=== PATIENT | male | born 1955 | race Caucasian/White ===

== ENCOUNTER → 2020-10-11 15:12 | Outpatient (ROUT) | payer OTHER, SELFPAY ==
[2020-10-11 15:28] LABS: Add Manual Diff / Slide Review NO; Basophils Absolute Auto 0 /uL (0-100); Basophils Percent Auto 0.3 % (0-2); Eosinophils Absolute Auto 100 /uL (0-450); Eosinophils Percent Auto 1.8 % (2-4); Hematocrit 46.5 % (41-53); Hemoglobin 15.4 g/dL (13.5-17.5); Lymphocytes Absolute Auto 1700 /uL (1100-4500); Mean Corpuscular HGB Conc 33.1 % (30-36); Mean Corpuscular Volume 87.6 fL (80-100); Monocytes Absolute Auto 500 /uL (0-900); Monocytes Percent Auto 5.9 % (3-14); Neutrophils Absolute Auto 5500 /uL (1500-7000); Platelet Count 214 X10^3/uL (150-400); Red Blood Cell Count 5.31 X10^6/uL (4.5-5.9); Red Cell Distribution Width 13.3 % (11.6-14.8); White Blood Cell Count 7.8 X10^3/uL (4.5-11.0)
[2020-10-11 15:37] LABS: Aspartate Aminotransferase 42 IU/L (17-59); Blood Urea Nitrogen 23 mg/dL (9-20); Calcium 9.4 mg/dL (8.4-10.2); Carbon Dioxide 31 mmol/L (22-32); Chloride 102 mmol/L (98-107); Cholesterol 156 mg/dL (140-199); Estimated Glomerular Filt Rate > 60.0 mL/min (>60); Glucose 95 mg/dL (80-110); HDL Cholesterol 55 mg/dL (40-60); HEMOLYSIS < 15 (0-50); LDL Cholesterol Calculated 80 mg/dL (<100); Potassium 3.8 mmol/L (3.4-5.1); Sodium 140 mmol/L (137-145); Triglycerides 103 mg/dL (35-150)
[2020-10-11 16:08] LABS: Prostate Specific Antigen < 0.064 ng/mL (0.10-4.00); TSH w/ Reflex to FT4 8.04 uIU/mL (0.47-4.68)
[2020-10-11 16:35] LABS: Free T4, Direct Thyroxine 1.02 ng/dL (0.78-2.19)
== END ==
PROVIDERS: Visit Provider Internal Medicine
DX: I10 Essential (primary) hypertension (principal); E78.2 Mixed hyperlipidemia; Z85.46 Personal history of malignant neoplasm of prostate; R59.0 Localized enlarged lymph nodes
CPT/HCPCS: 80048; 80061; 84153; 84439; 84443; 84450; 85025

== ENCOUNTER → 2021-10-30 14:49 | Outpatient (CLI) | payer MEDICARE, OTHER, SELFPAY ==
--- NOTE | 2021-10-30 | DI.US.S_ITS ---
PROCEDURE: US SOFT TISSUE HEAD AND NECK INDICATIONS: Localized swelling, mass and lump, neck TECHNIQUE: Real-time scanning was performed of the neck region of interest, with image documentation. COMPARISON: None. FINDINGS: No enlarged lymph nodes identified. There is a 2.0 x 2.3 x 0.5 centimeter isoechoic lesion in the right mid-lateral neck which corresponds to the area of clinical interest. Doppler evaluation demonstrates no internal vascularity. IMPRESSION: 1. No enlarged lymph nodes identified in the region of clinical interest. 2. 2.0 x 2.3 x 0.5 centimeter isoechoic mass corresponds to clinically palpable lesion. Mass may represent a small lipoma, however lesion has nonspecific imaging characteristics and other etiologies cannot be excluded by ultrasound alone. Decision to biopsy should be based on clinical assessment. Dictated by: Dania Bernabe MD, PhD on 10/30/2021 at 16:53 Approved by: Dania Bernabe MD, PhD on 10/30/2021 at 16:55
== END ==
PROVIDERS: PCP Internal Medicine; Referring Provider Internal Medicine; Visit Provider Internal Medicine
DX: R22.1 Localized swelling, mass and lump, neck (principal)
CPT/HCPCS: 76536

== ENCOUNTER → 2021-11-13 13:43 | Outpatient (CLI) | payer MEDICARE, OTHER, SELFPAY ==
--- NOTE | 2021-11-13 14:01 | DI.CT.S_ITS ---
PROCEDURE: CT SOFT TISSUE NECK W CON INDICATIONS: neck mass TECHNIQUE: After the administration of intravenous contrast, 3.0 mm axial sections acquired from the sella to the aortic arch. Additional oblique axial 3.0 mm sections acquired through the pharynx. 3 mm thick coronal and sagittal reformats were generated. For radiation dose reduction, the following was used: automated exposure control. The area of palpable abnormality was marked with a BB. COMPARISON: [facility], US SOFT TISSUE HEAD AND NECK, 10/30/2021, 14:59. FINDINGS: Image quality: Excellent. Lymph nodes: No enlarged lymph nodes seen throughout the neck. Vessels: Visualized vasculature appears patent. Neck spaces: The oropharynx, nasopharynx, and pharynx demonstrate no mucosal lesions. The vocal cords, false vocal cords, pyriform sinuses, epiglottis, vallecula, and tongue base all appear normal. Extramucosal spaces appear unremarkable. At the area of palpable abnormality, no CT abnormality is present. Glands: The parotid and submandibular glands appear normal. Thyroid gland unremarkable. Miscellaneous: Visualized brain and orbits appear normal. Lung apices appear clear. Superficial soft tissues appear normal. Incidental 2.5 cm retention cyst present in the left maxillary sinus. Bones: No suspicious bony lesions. Visualized sinuses and mastoids appear unremarkable. Degenerative arthropathy noted in the cervical spine IMPRESSION: 1. No CT finding corresponds with the area of palpable abnormality. 2. Unremarkable CT neck with contrast Approved by: Tip Hall M.D. on 11/13/2021 at 17:35
== END ==
PROVIDERS: PCP Internal Medicine; Referring Provider Surgery; Visit Provider Surgery
DX: R22.1 Localized swelling, mass and lump, neck (principal)
CPT/HCPCS: 70491

== ENCOUNTER → 2021-12-10 09:45 | Outpatient (CLI) | payer MEDICARE, OTHER, SELFPAY ==
[2021-12-10 10:56] LABS: COVID19 -Nasal RAPID Negative (Negative)
== END ==
PROVIDERS: PCP Internal Medicine; Visit Provider Surgery
DX: Z20.822 Contact with and (suspected) exposure to COVID-19 (principal)
CPT/HCPCS: 87635; C9803

== ENCOUNTER 2021-12-11 06:42 | Day surgery (SDC) | payer MEDICARE, OTHER, SELFPAY ==
[2021-12-05 08:38] VITALS: BMI 31.0
--- NOTE | 2021-12-11 | PATH_ITS ---
[facility] Accession Number: [id number] . 01 Material submitted: . neck - RIGHT NECK MASS . 01 Diagnosis: Right Neck, Excision: Mature adipose tissue, consistent with lipoma. V 12/14/2021 0925 Local . 01 Electronically signed: . Yan Krueger MD, Dermatopathologist NPI- [id number] . 01 Gross description: . RIGHT NECK MASS: Received in formalin are 2 fragments of méndez soft tissue measuring 1.8 x 1.2 x 0.8 cm in aggregate. Tissue is inked. Specimen is sectioned and submitted in its entirety in 2 cassettes. /STEVEN 12/12/20212007 Local . 01 Pathologist provided ICD-10: D17.9 . 01 CPT . 133143 Specimen Comment: A courtesy copy of this report has been sent to [phone] Performed at: 01 [facility] [address] [place] [address], [place], [place] [id number] MD Jori Mueller MD Phone: [phone]
[2021-12-11 07:22] VITALS: BP 165/97; PULSE 97; RESP 18; TEMP 36.9; O2SAT 97; BMI 31.0
[2021-12-11] MEDS: LACTATED RINGERS 1,000 ML 84 ML IV (07:22)
--- NOTE | 2021-12-11 07:58 | PM.PREOP ---
Pre-operative Note COVID-19 COVID-19 status: Negative Result date/Date tested (Pos, Neg/Pending): 12/10/21 Criteria for continued procedure: Expected advancement of disease process and Possibility delay results in more complex future surgery or treatment Interval Note History & Physical reviewed/Exam performed by Physician: Yes Changes to H&P: No ASA Class (for procedural sedation): II
--- NOTE | 2021-12-11 08:20 | SUR.OPER ---
Supine on padded OR bed, head on pillow, arms padded and tucked at sides, legs uncrossed, safety belt at thigh, tape over blanket over lower legs .
--- NOTE | 2021-12-11 08:21 | SUR.OPER ---
Supine on padded OR bed, head on pillow, left arms secured on padded arm boards at <90 degrees abduction, right arm tucked with draw sheet, legs uncrossed, safety belt at thigh, tape over blanket over lower legs.
[2021-12-11] MEDS: LIDOCAINE 1% W/EPI 20 ML INJ (08:32)
[2021-12-11 08:49] VITALS: BP 106/62; PULSE 90; RESP 14; TEMP 36.5; O2SAT 97
--- NOTE | 2021-12-11 08:51 | PM.OP.1 ---
Operative Date/Time/Diagnoses Date of procedure: 12/11/21 Time of procedure: 08:51 Pre-op diagnosis: Right neck mass Post-op diagnosis: same Procedure & Clinicians Procedure: Excisional biopsy of right neck mass Same procedure as scheduled: Yes Indications: Right neck mass Surgeon: Marino Sosa Anesthesia Type: General Operative Notes Findings: 2.5 cm lipomatous mass Estimated Blood Loss (mL): 5 Procedure in detail: The patient was brought to the operating and placed on the table in supine position. General anesthesia was induced via LMA. His head was turned slightly to the left and his right shoulder was taped to distract the right shoulder inferiorly. The right neck was prepped and draped in the usual fashion and a time-out was performed. Roughly 5 mL of lidocaine with epinephrine were injected into the skin and subcutaneous tissue. We made a 4 cm incision parallel to the skin folds over the mass. We used cautery to dissect down through the platysmas muscle and encountered a lipomatous mass just superficial to the sternocleidomastoid muscle. The 2.5 cm fatty mass was dissected free from the surrounding structures. An arterial branch was observed coursing along the muscle belly and was protected. The surgical field was hemostatic. Additional local was injected into the muscle fascia. The wound was then closed with interrupted 3-0 Vicryl sutures in the platysma followed by a running 4 Monocryl subcuticular closure. Steri-Strips were applied and a sterile gauze was applied. Post-operative Condition: stable Disposition: PACU
[2021-12-11 08:57] VITALS: BP 106/51; PULSE 74; RESP 12; O2SAT 98
[2021-12-11 09:13] VITALS: BP 138/70; PULSE 61; RESP 13; O2SAT 98
[2021-12-11 09:18] VITALS: BP 142/78; PULSE 68; RESP 13; TEMP 36.2; O2SAT 98
--- NOTE | 2021-12-11 15:35 | SUR.PHASEII ---
Late entry: Pt stated pain tolerable, ready to go, dressing remained c/d/i, no swelling, pt left unit in stable condition.
[2021-12-11 15:40] VITALS: BP 115/69; PULSE 62; RESP 20; TEMP 36.9; O2SAT 98
== END 2021-12-11 09:50 | disposition home or self-care (01) ==
PROVIDERS: PCP Internal Medicine; Referring Provider Surgery; Visit Provider Surgery
PROC: (CPT 21556; principal; 2021-12-11 07:45)
DX: D17.0 Benign lipomatous neoplasm of skin and subcutaneous tissue of head, face and neck (principal); E03.9 Hypothyroidism, unspecified
CPT/HCPCS: 21556; J1100; J2405; J2704; J3010

== ENCOUNTER 2022-10-13 14:59 | Emergency (ER) | payer MEDICARE, OTHER, SELFPAY ==
[2022-10-13] VITALS (9 sets, daily range): BP systolic 145–185; BP diastolic 75–92; PULSE 62–68; RESP 18; TEMP 36.6; O2SAT 98–100; BMI 31.0
--- NOTE | 2022-10-13 15:18 | DI.RAD.S_ITS ---
PROCEDURE: XR RIBS RT MIN 3V W CXR 1V INDICATIONS: fall with posterior right rib pain TECHNIQUE: To views of the right ribs were acquired, along with a single view chest. COMPARISON: None. FINDINGS: Surgical changes and devices: None. Bones and chest wall: No fractures or dislocations. No suspicious bony lesions. Overlying soft tissues appear unremarkable. Lungs and pleura: No pleural effusions or pneumothorax. Mild right basilar atelectasis and or infiltrate Mediastinum: Mediastinal contours appear normal. Heart size is normal. IMPRESSION: Mild right basilar atelectasis and or infiltrate No rib fracture. No pneumothorax. Approved by: Tip Hall M.D. on 10/13/2022 at 15:38
--- NOTE | 2022-10-13 16:50 | DI.CT.S_ITS ---
PROCEDURE: CT CHEST W CON INDICATIONS: Fall down ladder, complaint of right posterior rib pain, TECHNIQUE: After the administration of intravenous contrast, 5 mm thick sections acquired from the pulmonary apices to the posterior costophrenic angles. 1 mm axial lung, 5 mm thick coronal and sagittal reformats and 7 mm axial MIP were acquired. For radiation dose reduction, the following was used: automated exposure control, adjustment of mA and/or kV according to patient size. COMPARISON: None. FINDINGS: Image quality: Excellent. Lungs and pleura: No acute air space opacities. Bibasilar atelectasis. No pleural effusions or pneumothorax. Central and peripheral airways are patent and normal in caliber. Mediastinum: Heart size is normal. No pericardial effusion. Coronary atherosclerotic vascular calcifications are noted. No mediastinal adenopathy by size criteria. Thoracic aorta and central pulmonary arteries are normal in size. Esophagus is normal in caliber. No hiatal hernia. Mild scattered atherosclerotic calcifications of the thoracic aorta. Bones and chest wall: No suspicious bony lesions. No acute vertebral body compression fractures. Minimally displaced acute posterolateral right 9th rib fracture. No axillary or supraclavicular adenopathy by size criteria. Thyroid gland is unremarkable.. Abdomen: Visualized upper abdominal solid organs and bowel loops appear normal in the absence of contrast. IMPRESSION: 1. Minimally displaced acute posterolateral right 9th rib fracture. No evidence for pulmonary contusion or pneumothorax. 2. No acute cardiopulmonary abnormalities. 3. No acute airspace disease. 4. Mild atherosclerosis. Dictated by: Lv Gomez M.D. on 10/13/2022 at 18:40 Approved by: Lv Gomez M.D. on 10/13/2022 at 18:47
--- NOTE | 2022-10-13 16:53 | ED.FALL ---
HPI - Fall <WINTER Gerard - Last Filed: 10/13/22 19:25> General Chief Complaint: Fall Stated Complaint: fell off ladder, back pain Time Seen by Provider: 10/13/22 16:06 Source: patient Mode of arrival: Ambulatory History of Present Illness HPI Narrative: This is a 67-year-old male who presents to the emergency department after falling off of stair for on a ladder while he was removing [employer] decorations just prior to arrival. States that he fell down onto his right ribs space onto the deck, he bumped his head however states that this was very light and it did not hurt any does not have a headache or any symptoms from this. No loss of consciousness, no weakness, no nausea or vomiting afterwards. Just complains of right lower rib pain primarily the posterior aspect He denies any back pain, weakness, sensation changes, denies any abdominal pain, urinary retention or hematuria. He is not anticoagulated, denies shortness of breath or wheezing but states that he has pain in the posterior lower ribs base with deep inspiration, with palpation, and with moving around. At rest he is comfortable. Related Data Home Medications Medication Instructions Recorded Confirmed rosuvastatin 10 mg tablet 10 mg PO DAILY 11/14/21 12/11/21 levothyroxine 25 mcg tablet 25 mcg PO DAILY 12/05/21 12/11/21 Previous Rx's Medication Instructions Recorded esomeprazole magnesium 20 mg 20 mg PO DAILY #90 caps 12/19/21 capsule,delayed release (Nexium) lidocaine 5 % topical patch 1 patch topical DAILY PRN pain #30 10/13/22 (Lidoderm) ea naproxen 375 mg tablet 375 mg PO BID PRN pain #20 tabs 10/13/22 Allergies Allergy/AdvReac Type Severity Reaction Status Date / Time No Known Drug Allergies Allergy Verified 12/26/21 09:18 Review of Systems <WINTER Gerard - Last Filed: 10/13/22 19:25> Review of Systems ROS Unobtainable: All systems reviewed & are unremarkable except as noted in HPI and below Patient History <WINTER Gerard - Last Filed: 10/13/22 19:25> Medical History Arthritis Heart murmur HLD (hyperlipidemia) Hypothyroidism Localized swelling, mass and lump, neck Prostate cancer Surgical History History of ankle surgery (1998) History of hernia surgery (2019) Hx of colonoscopy (2015) Hx of prostatectomy (2015) Hx of tonsillectomy (1962) Family History Mother Heart disease (organic) Sister Diabetes mellitus Ovarian cancer Father Stroke Social History marital status: household members: spouse occupational status: previously employed Smoking Status: Never smoker alcohol intake: current Smoking Status: Never smoker alcohol intake frequency: a few times a week Substance Use Type: does not use Exam <WINTER Gerard - Last Filed: 10/13/22 19:25> Narrative Exam Narrative: Reviewed vitals signs and nursing notes. General: cooperative, comfortable, in no acute distress, well groomed HEENT: symmetrical facial expressions, moist mucous membranes, atraumatic, PERRLA bilaterally Cardiovascular: regular rate and rhythm, no peripheral edema, warm extremities, strong bilateral pulses Respiratory: normal effort, able to speak in complete sentences, without wheezing, stridor, or abnormal breath sounds. No retractions or tachypnea. Exam of chest with palpation, patient has tenderness to his right flank, just below the scapula with palpation, with lateral pressure, his posterior rib pain is exacerbated. This is concerning for fractured ribs space, breath sounds are mildly diminished without rhonchi, without crepitus, without open wound, mild scratches and some edema present GI: abdomen soft, nontender to palpation, nondistended, without masses, rebound tenderness or exquisite tenderness with exam. MSK: moves all extremities, neurovascularly intact, no weakness, normal tone without other abnormality Skin: brisk capillary refill, without pallor or erythema Neuro: normal speech and cognition, A&O x3, ambulatory, clear speech Psych: mental status is grossly normal, congruent mood, normal affect, pleasant and cooperative Initial Vital Signs Initial Vital Signs: Vital Signs Temperature 97.8 F 10/13/22 15:07 Pulse Rate 64 10/13/22 15:07 Respiratory Rate 18 10/13/22 15:07 Blood Pressure 175/87 H 10/13/22 15:07 Pulse Oximetry 98 10/13/22 15:07 Oxygen Delivery Method 10/13/22 15:07 <See Kebede DO - Last Filed: 10/14/22 02:22> Initial Vital Signs Initial Vital Signs: Vital Signs Temperature 97.8 F 10/13/22 15:07 Pulse Rate 64 10/13/22 15:07 Respiratory Rate 18 10/13/22 15:07 Blood Pressure 175/87 H 10/13/22 15:07 Pulse Oximetry 98 10/13/22 15:07 Oxygen Delivery Method 10/13/22 15:07 Course <WINTER Gerard - Last Filed: 10/13/22 19:25> Orders Ordered: Discontinued Medications Acetaminophen (Acetaminophen 325 Mg Tablet) 975 mg PO NOW ONE Stop: 10/13/22 16:51 Last Admin: 10/13/22 17:18 Dose: 975 mg Documented By: JERRY Ketorolac Tromethamine (Ketorolac 10 Mg Tablet) 10 mg PO NOW ONE Stop: 10/13/22 16:51 Last Admin: 10/13/22 17:18 Dose: 10 mg Documented By: JERRY Lidocaine (Lidocaine Patch 1 Each Adh..Patch) 1 each TOP NOW ONE Stop: 10/13/22 16:51 Last Admin: 10/13/22 17:17 Dose: 1 each Documented By: JERRY Vital Signs Vital signs: Vital Signs - 8 hr 10/13/22 18:25 10/13/22 18:25 10/13/22 18:27 Pulse Rate 66 68 Blood Pressure 185/92 H Pulse Oximetry 99 100 Oxygen Delivery Method 10/13/22 18:27 10/13/22 18:30 10/13/22 18:30 Pulse Rate 63 Blood Pressure 174/80 H 157/81 H Pulse Oximetry 100 Oxygen Delivery Method 10/13/22 18:40 10/13/22 18:40 10/13/22 18:50 Pulse Rate 62 67 Blood Pressure 151/76 H Pulse Oximetry 99 98 Oxygen Delivery Method 10/13/22 18:50 10/13/22 19:00 10/13/22 19:00 Pulse Rate 63 Blood Pressure 149/79 H 145/75 H Pulse Oximetry 99 Oxygen Delivery Method Room Air <See Kebede DO - Last Filed: 10/14/22 02:22> Orders Ordered: Discontinued Medications Acetaminophen (Acetaminophen 325 Mg Tablet) 975 mg PO NOW ONE Stop: 10/13/22 16:51 Last Admin: 10/13/22 17:18 Dose: 975 mg Documented By: JERRY Ketorolac Tromethamine (Ketorolac 10 Mg Tablet) 10 mg PO NOW ONE Stop: 10/13/22 16:51 Last Admin: 10/13/22 17:18 Dose: 10 mg Documented By: JERRY Lidocaine (Lidocaine Patch 1 Each Adh..Patch) 1 each TOP NOW ONE Stop: 10/13/22 16:51 Last Admin: 10/13/22 17:17 Dose: 1 each Documented By: JERRY Vital Signs Vital signs: Vital Signs - 8 hr 10/13/22 18:25 10/13/22 18:25 10/13/22 18:27 Pulse Rate 66 68 Blood Pressure 185/92 H Pulse Oximetry 99 100 Oxygen Delivery Method 10/13/22 18:27 10/13/22 18:30 10/13/22 18:30 Pulse Rate 63 Blood Pressure 174/80 H 157/81 H Pulse Oximetry 100 Oxygen Delivery Method 10/13/22 18:40 10/13/22 18:40 10/13/22 18:50 Pulse Rate 62 67 Blood Pressure 151/76 H Pulse Oximetry 99 98 Oxygen Delivery Method 10/13/22 18:50 10/13/22 19:00 10/13/22 19:00 Pulse Rate 63 Blood Pressure 149/79 H 145/75 H Pulse Oximetry 99 Oxygen Delivery Method Room Air MDM - Fall <WINTER Gerard - Last Filed: 10/13/22 19:25> Lab Data Labs: Lab Results 10/13/22 Range/Units 18:14 Urine Color Yellow Urine Appearance Clear Urine pH 7.5 (4.5-8.0) Ur Specific [place] 1.015 (1.000-1.035) Urine Protein Trace H (Negative) Urine Glucose (UA) Negative (Negative) g/dL Urine Ketones Negative (NEGATIVE) Urine Occult Blood 2+ H (Negative) Urine Nitrate Negative (Negative) Urine Bilirubin Negative (NEGATIVE) Urine Urobilinogen 0.2 (0.2) E.U./dL Ur Leukocyte Esterase Negative (NEGATIVE) Urine RBC 10-30/hpf H (0-5/HPF) Urine WBC 0-1/hpf (0-5/HPF) Ur Squamous Epith Cells None seen (0-5/HPF) Urine Bacteria None seen (None) Ur Culture Indicated? Cult not indicated Urine Dip Bedside Urine Glucose Negative Bedside Urine Bilirubin - Negative Bedside Urine Ketone - Negative Urine Specific [place] 1.015 Bedside Urine Occult Blood ++ Bedside Urine pH 7.5 Bedside Urine Protein +/- 15 Bedside Urine Urobilinogen - Negative Bedside Urine Nitrite - Negative Bedside Urine Leukocytes - Negative Esterase Imaging Data Chest x-ray: Radiologist's Impression: PROCEDURE:? XR RIBS RT MIN 3V W CXR 1V ? INDICATIONS:? fall with posterior right rib pain ? TECHNIQUE:? To views of the right ribs were acquired, along with a single view chest.? ? COMPARISON:? None. ? FINDINGS:? ? Surgical changes and devices:? None.? ? Bones and chest wall:? No fractures or dislocations.? No suspicious bony lesions.? Overlying soft tissues appear unremarkable.? ? Lungs and pleura:? No pleural effusions or pneumothorax.? Mild right basilar atelectasis and or infiltrate ? Mediastinum:? Mediastinal contours appear normal.? Heart size is normal.? ? IMPRESSION:? ? Mild right basilar atelectasis and or infiltrate ? No rib fracture.? No pneumothorax.? ? ? Approved by: Tip Hall M.D. on 10/13/2022 at 15:38? CT scan - chest: Radiologist's Impression: PROCEDURE:? CT CHEST W CON ? INDICATIONS:? Fall down ladder, complaint of right posterior rib pain, ? TECHNIQUE:? After the administration of intravenous contrast, 5 mm thick sections acquired from the pulmonary apices to the posterior costophrenic angles.? 1 mm axial lung, 5 mm thick coronal and sagittal reformats and 7 mm axial MIP were acquired.? For radiation dose reduction, the following was used:? automated exposure control, adjustment of mA and/or kV according to patient size.? ? COMPARISON:? None. ? FINDINGS: ? Image quality:? Excellent.? ? Lungs and pleura:? No acute air space opacities.? Bibasilar atelectasis. No pleural effusions or pneumothorax.? Central and peripheral airways are patent and normal in caliber.? ? ? Mediastinum:? Heart size is normal.? No pericardial effusion.? Coronary atherosclerotic vascular calcifications are noted.? No mediastinal adenopathy by size criteria.? Thoracic aorta and central pulmonary arteries are normal in size.? Esophagus is normal in caliber.? No hiatal hernia.? Mild scattered atherosclerotic calcifications of the thoracic aorta.? ? Bones and chest wall:? No suspicious bony lesions. ?No acute vertebral body compression fractures.? Minimally displaced acute posterolateral right 9th rib fracture. No axillary or supraclavicular adenopathy by size criteria.? Thyroid gland is unremarkable..? ? Abdomen:? ? Visualized upper abdominal solid organs and bowel loops appear normal in the absence of contrast.? ? ? IMPRESSION:? ? 1. Minimally displaced acute posterolateral right 9th rib fracture.? No evidence for pulmonary contusion or pneumothorax. ? 2. No acute cardiopulmonary abnormalities. ? 3. No acute airspace disease. ? 4. Mild atherosclerosis.? ? ? Dictated by: Lv Gomez M.D. on 10/13/2022 at 18:40 ? ? Approved by: Lv Gomez M.D. on 10/13/2022 at 18:47 ? MDM Narrative Medical decision making narrative: This is a 67-year-old male who presents to the emergency department after falling off of stair for on a ladder while he was removing [employer] decorations just prior to arrival. States that he fell down onto his right ribs space onto the deck, he bumped his head however states that this was very light and it did not hurt any does not have a headache or any symptoms from this. Differential diagnoses include, but are not limited to: Rib fracture, pulmonary contusion, spinal fracture, traumatic aortic/thoracic dissection, whiplash injury, muscle strain, sprain, costochondritis, pleural effusion,, acute abdomen or acute flank/organ injury pneumothorax. I performed a preliminary independent interpretation of the following imaging studies: Course of Care: Assessed the patient, he has tenderness over his lower posterior right ribs space, with lateral pressure he has worsening pain to the posterior rib space, ordered CT with contrast to evaluate for vascular injury versus pulmonary contusion versus rib fractures as chest x-ray came back showing right basilar atelectasis without acute fracture Ordered pain medication including Tylenol, p.o. Toradol and a lidocaine patch. Discussion of Management with other Health Professionals: Consulted with Dr. Santillan, ED attending regarding orders and plan of care including CT for traumatic chest injury, IV was placed by bedside nurse Patient's symptoms improved over duration of stay with above-stated therapies. 1800 called to find out why CT has not taken patient yet, they state that they are awaiting lab work, patient is a trauma, no lab work required, reassessed patient, his pain is tolerable at rest, he is without shortness of breath, wheezing, hypoxia or tachypnea. Awaiting CT. Patient's urine dip showed positive blood, we will send out for microscopy Your microscopy came out negative for WBC with hemorrhage, s, bacteria and blood, patient's symptoms unchanged, without tachycardia, tachypnea or shortness of breath. CT chest with contrast shows minimally displaced acute posterolateral right 9th rib fracture without evidence of pulmonary contusion or pneumothorax, no acute cardiopulmonary abnormalities with no acute airspace disease and mild atherosclerosis. Patient was given incentive spirometer, educated how to use it, he was nontender along his whole spine, ambulatory without deficit or weakness, without other complaint of pain or sensation change. Discussed that patient will be sore for the next few days, encourage hydration, Tylenol, ibuprofen, rest, topical modalities like Voltaren gel or lidocaine patches. Patient will follow up with his PCP as indicated if not improving over the next few days, patient understands to return to the emergency department if he develop shortness of breath, hematuria, Seventeen 15, patient was discharged, they did not have any further questions, recommend follow-up with PCP and return if any worsening otherwise rest, gave prescriptions of lidocaine patches, naproxen, and patient has Tylenol home. MIPS: This encounter doesn't have any diagnosis associated with MIPS criteria. Social determinants of health that may impact treatment or disposition: none Vital Signs: I, the ED provider, reviewed the patient?s vital signs, past medical records and encounters if available, and nursing notes. I have spoken with the patient/family and discussed today?s findings whom verbalize understanding. Counseling was provided regarding the diagnosis and prognosis, and specific details were provided for the plan of care. Questions are addressed and there is agreement with the plan and for follow-up. Patient is appropriate for outpatient management. Portions of this chart have been created with [employer] voice recognition software. Occasional wrong word or sound alike substitutions may have occurred due to the inherent limitations of this software. Petra Gonzalez ARNP, personally performed the services described in the documentation, and it accurately records my words and actions. I collaborated with the ED attending physician for GEREMIAS level 2, 3, and some level 4s as needed Electronically signed by: WINTER Degroot <See Kebede DO - Last Filed: 10/14/22 02:22> Lab Data Labs: Lab Results 10/13/22 Range/Units 18:14 Urine Color Yellow Urine Appearance Clear Urine pH 7.5 (4.5-8.0) Ur Specific [place] 1.015 (1.000-1.035) Urine Protein Trace H (Negative) Urine Glucose (UA) Negative (Negative) g/dL Urine Ketones Negative (NEGATIVE) Urine Occult Blood 2+ H (Negative) Urine Nitrate Negative (Negative) Urine Bilirubin Negative (NEGATIVE) Urine Urobilinogen 0.2 (0.2) E.U./dL Ur Leukocyte Esterase Negative (NEGATIVE) Urine RBC 10-30/hpf H (0-5/HPF) Urine WBC 0-1/hpf (0-5/HPF) Ur Squamous Epith Cells None seen (0-5/HPF) Urine Bacteria None seen (None) Ur Culture Indicated? Cult not indicated Urine Dip Bedside Urine Glucose Negative Bedside Urine Bilirubin - Negative Bedside Urine Ketone - Negative Urine Specific [place] 1.015 Bedside Urine Occult Blood ++ Bedside Urine pH 7.5 Bedside Urine Protein +/- 15 Bedside Urine Urobilinogen - Negative Bedside Urine Nitrite - Negative Bedside Urine Leukocytes - Negative Esterase Discharge Plan Departure Patient Disposition: Home Clinical Impression: Traumatic hematuria Fall from ladder Qualifiers: Encounter type: initial encounter Qualified Code(s): W11.XXXA - Fall on and from ladder, initial encounter Closed rib fracture Qualifiers: Encounter type: initial encounter Rib fracture type: single rib Laterality: right Qualified Code(s): S22.31XA - Fracture of one rib, right side, initial encounter for closed fracture Instructions: Rib Fracture Activity Restrictions/Additional Instructions: *You have been diagnosed with a 9th rib fracture with minimal displacement, no evidence lung bruising or injury to the lung parenchyma on CT. You have some blood in your urine also likely related to the traumatic injury. Please use Tylenol, ibuprofen, something topical with ice and rest over the next few days. Avoid exertional activities causing worsening pain. Please remember to take deep breaths, and cough and clear lungs. Use the incentive spirometer and avoid congestion as this can lead to pneumonia. If you develop fever, chills, shortness of breath, weakness or any other concerning symptoms please come back to the emergency department. Please follow-up with your primary care provider I will send this note to him along with your test. Thank you for your patience today, I hope you feel better soon. *What to do: *Please continue to take your regular medications as directed. [x ] New medication prescriptions sent to your pharmacy: [[facility]] [ ] New medication written as a paper prescription [ ] No new medications given *Please follow up with your primary care provider in 2-3 days, call for an appointment. Let them know you were seen in the Emergency Department and that we asked that you be seen for follow-up. We will electronically transmit a record of today's note if your PCP is in our system *If you do not have a primary care provider please contact [phone] to establish care with one of the [facility] primary care providers. *Return to Emergency Department if you should have any new, worsening, or concerning symptoms, such as [fever greater than 101F, chills, worsening pain, persistent vomiting or other bothersome symptoms]. Prescriptions: New lidocaine [Lidoderm] 5 % adhesive patch,medicated 1 patch topical DAILY PRN (Reason: pain) Qty: 30 0RF Rx Instructions: leave on most painful area for up to 12 hrs naproxen 375 mg tablet 375 mg PO BID PRN (Reason: pain) Qty: 20 0RF No Action esomeprazole magnesium [Nexium] 20 mg capsule,delayed release(DR/EC) 20 mg PO DAILY Qty: 90 0RF rosuvastatin 10 mg tablet 10 mg PO DAILY levothyroxine 25 mcg Tablet 25 mcg PO DAILY Referrals: Milton Yuen MD [Primary Care Provider] - Stand Alone Forms: Patient Portal/API <See Kebede DO - Last Filed: 10/14/22 02:22> Cosign ED Attending Elliottature Attestation: I was immediately available in the department for consultation. Documentation has been reviewed. I agree with assessment and plan.
[2022-10-13] MEDS: LIDOCAINE PATCH 1 EACH ADH..PATCH TOP (17:17)
[2022-10-13] MEDS: KETOROLAC 10 MG TABLET PO (17:18)
[2022-10-13] MEDS: ACETAMINOPHEN 325 MG TABLET 975 MG PO (17:18)
[2022-10-13 18:42] LABS: Appearance Urine UA CLEAR; Bilirubin Urine UA NEGATIVE (NEGATIVE); Color Urine UA YELLOW; Glucose Urine UA NEGATIVE (Negative); Ketones Urine UA NEGATIVE (NEGATIVE); Leukocyte Esterase Urine UA NEGATIVE (NEGATIVE); Nitrite Urine UA NEGATIVE (Negative); Occult Blood Urine UA 2+ (Negative); Protein Urine UA TRACE (Negative); Specific Gravity Urine UA 1.015 (1.000-1.035); Urobilinogen Urine UA 0.2 E.U./dL (0.2); pH Urine UA 7.5 (4.5-8.0)
[2022-10-13 18:50] LABS: Bacteria Urine None Seen; Culture Indicated Urine Cult Not Indicated; RBC Urine 10-30/HPF (0-5/HPF); Squamous Epithelial Cell Urine None Seen (0-5/HPF); WBC Urine 0-1/HPF (0-5/HPF)
== END 2022-10-13 19:20 | disposition home or self-care (01) ==
PROVIDERS: Emergency Provider Nurse Practitioner Critical Care Medicine; PCP Internal Medicine
DX: S22.31XA Fracture of one rib, right side, initial encounter for closed fracture (principal); R31.9 Hematuria, unspecified; W11.XXXA Fall on and from ladder, initial encounter
CPT/HCPCS: 71101; 71260; 81001; 81003; 99284; Q9967

== ENCOUNTER → 2023-04-11 09:51 | Outpatient (CLI) | payer MEDICARE, OTHER, SELFPAY ==
[2023-04-11 11:10] LABS: Hemoglobin 14.5 g/dL (13.5-17.5); Mean Corpuscular HGB Conc 33.7 % (30-36); Mean Corpuscular Hemoglobin 29.6 PG (26-34); Mean Corpuscular Volume 87.7 fL (80-100); Platelet Count 215 X10^3/uL (150-400); Red Cell Distribution Width 13.2 % (11.6-14.8)
[2023-04-11 11:36] LABS: Alanine Aminotransferase 36 IU/L (<50); Albumin 4.3 g/dL (3.5-5.0); Albumin Globulin Ratio 1.3 (1.0-2.8); Alkaline Phosphatase 76 U/L (38-126); Aspartate Aminotransferase 32 IU/L (17-59); BUN Creatinine Ratio 17.7 (6-22); Bilirubin Total 0.7 mg/dL (0.2-1.3); Blood Urea Nitrogen 17 mg/dL (9-20); Calcium 9.3 mg/dL (8.4-10.2); Carbon Dioxide 29 mmol/L (22-32); Chloride 103 mmol/L (98-107); Cholesterol 156 mg/dL (140-199); Estimated Glomerular Filt Rate > 60 mL/min (>60); Globulin 3.3 g/dL (1.7-4.1); Glucose 95 mg/dL (80-110); HDL Cholesterol 58 mg/dL (40-60); HEMOLYSIS < 15 (0-50); LDL Cholesterol Calculated 78 mg/dL (<100); Potassium 4.2 mmol/L (3.4-5.1); Sodium 141 mmol/L (137-145); Total Protein 7.6 g/dL (6.3-8.2); Triglycerides 100 mg/dL (35-150)
[2023-04-11 12:04] LABS: TSH w/ Reflex to FT4 0.89 uIU/mL (0.47-4.68)
[2023-04-11 12:09] LABS: Prostate Specific Antigen < 0.064 ng/mL (0.10-4.00)
== END ==
PROVIDERS: PCP Internal Medicine; Referring Provider Internal Medicine; Visit Provider Internal Medicine
DX: E03.9 Hypothyroidism, unspecified (principal); Z85.46 Personal history of malignant neoplasm of prostate; E78.2 Mixed hyperlipidemia
CPT/HCPCS: 36415; 80053; 80061; 84153; 84443; 85027

== ENCOUNTER → 2023-10-27 08:41 | Outpatient (CLI) | payer MEDICARE, OTHER, SELFPAY ==
--- NOTE | 2023-10-27 08:43 | DI.RAD.S_ITS ---
PROCEDURE: XR SHOULDER LT MIN 2V INDICATIONS: left shoulder pain, fall TECHNIQUE: 3 views of the shoulder were acquired. COMPARISON: None. FINDINGS: Bones: High-riding left humeral head can be seen with chronic rotator cuff injury. No fractures or dislocations. No suspicious bony lesions. Visualized ribs appear intact. Soft tissues: No suspicious soft tissue calcifications. IMPRESSION: 1. No acute findings 2. High-riding humeral head can be seen with rotator cuff injury; if indicated, MRI may provide additional diagnostic benefit. Dictated by: Jake Flores M.D. on 10/27/2023 at 14:24 Approved by: Jake Flores M.D. on 10/27/2023 at 14:29
[2023-10-27 10:27] LABS: TSH w/ Reflex to FT4 2.24 uIU/mL (0.47-4.68)
[2023-10-27 10:31] LABS: Prostate Specific Antigen < 0.064 ng/mL (0.10-4.00)
== END ==
PROVIDERS: PCP Internal Medicine; Referring Provider Internal Medicine; Visit Provider Internal Medicine
DX: E03.9 Hypothyroidism, unspecified (principal); Z85.46 Personal history of malignant neoplasm of prostate; M75.82 Other shoulder lesions, left shoulder
CPT/HCPCS: 36415; 73030; 84153; 84443

== ENCOUNTER 2024-01-08 08:15 | Outpatient (RCR) | payer MEDICARE, OTHER, SELFPAY ==
--- NOTE | 2023-11-21 17:29 | PT.OIE ---
Current Diagnoses Other shoulder lesions, left shoulder (11/21/23) Past Medical History (Last Updated 10/27/23 @ 08:32 by Domingo Baptiste MD) Acquired hypothyroidism Allergic rhinitis Ankle pain (~1988) Arthritis Chicken pox (~1963) Erectile dysfunction Fractures (~1988) Heart murmur Hematuria (~2009) History of colonic polyps History of prostate cancer HLD (hyperlipidemia) Localized swelling, mass and lump, neck Mixed hyperlipidemia Mumps (~1963) Overweight Rosacea (~2009) Rubella (~1963) Past Surgical History (Last Reviewed 10/27/23 @ 05:13 by Domingo Baptiste MD) Anesthesia History of ankle surgery (1998) History of hernia surgery (2019) Hx of colonoscopy (2014) Hx of prostatectomy (2014) Hx of tonsillectomy (1961) Lipoma (~2021) Visit Care Team Role Provider Type Domingo Baptiste MD Attending Provider Physician Family Provider Primary Care Provider Referring Provider Specialty: Internal Medicine Address: [address] [place] [address] Email: [email or web address] Physical Therapy Initial Evaluation PT-OP-A Visit Information Start: 11/14/23 19:14 Freq: Status: Active Protocol: Document 11/21/23 10:32 LRN (Rec: 11/21/23 11:17 LRN [id number]) Out-Patient Physical Therapy Visit Information Visit Information Visit Type Initial Evaluation Visit Start Time 10:32 Visit Stop Time 11:15 Visit Number 1 Evaluation Information Evaluation Date 11/21/23 Precautions Precautions arthritis, thyroid disorder PT-OP-B Current Condition Start: 11/14/23 19:14 Freq: Status: Active Protocol: Document 11/21/23 10:32 LRN (Rec: 11/21/23 11:17 LRN [id number]) Current Condition History of Current Condition Onset Date 4-6 months ago Current Complaints L shoulder constant pain History of Current Condition L shoulder had been stiffer than right, then 2 months ago (in Dec), slipped on icy steps and landed on a step onto his L shoulder. He noticed with lifting his L arm (thumb pointing down), he was not able to lower his arm without it dropping. He is now able to perform the movement. States the muscle on the top of his shoulder (pointing to Supraspinatus) is the muscle affected. He had been trying to put up sheet rock and found it really hurt his L shoulder . He has constant soreness and if sleeps on L side, is bothered by pain. Pt is normally a L side sleeper. States he is improving and the shoulder is still sore. Pt is R handed. Prior Treatments and Tests X-ray (10/27/23): No fractures or dislocations. Report states: High-riding humeral head can be seen with rotator cuff injury. Treatment Goals Patient/Caregiver Goals Pt goal: Improve L shoulder strength to relieve soreness. Learn ex's to improve but not make sore. Personal Factors Other Personal Factors That May Effect Arthrits. Therapy/Recovery PT-OP-C Subjective Start: 11/14/23 19:14 Freq: Status: Active Protocol: Document 11/21/23 10:32 LRN (Rec: 11/21/23 11:17 LRN [id number]) Patient Questionnaires Quick Dash- Upper Extremity Quick Dash UE Score 9.09 Quick Dash UE Impairment 1 to 19% Impaired (Score 1-19) OP-PT Pain Assessment Pain Assessment Grid Paper Pain Assessment Grid Completed Yes Location L shoulder Pain Location Details Posterior Deltoid Intensity 2 Scale Used Numeric (0 - 10) Description Aching Frequency Constant Pain Aggravating Factors Activity Other Pain Aggravating Factors Holding arm or weight overhead Pain Alleviating Factors Cold PT-OP-E Functional Tests Start: 11/14/23 19:14 Freq: Status: Active Protocol: Document 11/21/23 10:32 LRN (Rec: 11/21/23 11:17 LRN [id number]) Functional Tests Apley's Scratch Test Action 1- Left Crest of spine Action 1- Right Crest of spine Action 2- Left T3 Action 2- Right T4 Action 3- Left L2 Action 3- Right T8 PT-OP-H Neuro Start: 11/14/23 19:14 Freq: Status: Active Protocol: Document 11/21/23 10:32 LRN (Rec: 11/21/23 11:17 LRN [id number]) Sensation Evaluation Gross Sensation Gross Sensation WNL PT-OP-J Posture/Palpation/Skin Start: 11/14/23 19:14 Freq: Status: Active Protocol: Document 11/21/23 10:32 LRN (Rec: 11/21/23 11:17 LRN [id number]) Posture Evaluation Position Standing Head/C-Spine Posture Forward Head Shoulder Posture (L) Rounded,(L) Forward,(L) Elevated Arm Posture (L) Internally Rotated,(R) Internally Rotated Comments Posture Comments Dowagers hump, straightened upper T/S curvature. Palpation Assessment Location L shoulder Palpation Location Between middle and posterior deltoid muscle. Palpation Findings Tenderness PT-OP-K Range of Motion Start: 11/14/23 19:14 Freq: Status: Active Protocol: Document 11/21/23 10:32 LRN (Rec: 11/21/23 11:17 LRN [id number]) Cervical Spine Range of Motion Cervical Spine Active Degrees Testing Position Sitting Extension 37 Rotation Left 70 Rotation Right 70 Lateral Flexion Left 26 Lateral Flexion Right 20 ROM Limitations Soft Tissue Tightness Shoulder Goniometric Range of Motion Shoulder Right Active Testing Position Sitting Flexion 155 Extension 65 Abduction 180 Internal Rotation Behind Back (text) T8 Left Active Testing Position Sitting Flexion 157 Extension 38 Abduction 110 Internal Rotation Behind Back (text) L2 Comments Pt has L shoulder pain with returning to resting. Pt able to do 180 deg's AB in scapular plane. Elbow/Forearm Range of Motion Elbow/Forearm Right Active Elbow/Forearm ROM WFL Yes ROM Testing Position Sitting Left Active Elbow/Forearm ROM WFL Yes ROM Testing Position Sitting PT-OP-L Special Tests Start: 11/14/23 19:14 Freq: Status: Active Protocol: Document 11/21/23 10:32 LRN (Rec: 11/21/23 11:17 LRN [id number]) Special Tests Shoulder Special Tests Passive ER Rotator Cuff Test Results + Comments ROM in neutral before pain increase. IR/Horizontal ADD Impingement Test Results + Elevation Impingement Test Results + Comments Pain only at end-range. PT-OP-M Strength Start: 11/14/23 19:14 Freq: Status: Active Protocol: Document 11/21/23 10:32 LRN (Rec: 11/21/23 11:17 LRN [id number]) Shoulder Strength Shoulder Manual Muscle Testing Right Comments Strength is 5/5. Left Flexion 3+ Fair+ External Rotation 3+ Fair+ Horizontal Adduction 3+ Fair+ Comments Pop w/o pain while testing Horizontal AB. Strength limited by pain. Elbow/Forearm Strength Elbow and Forearm Manual Muscle Testing Right Comments Strength is 5/5 Left Comments Strength is 5/5 PT-OP-Q Treatments Start: 11/14/23 19:14 Freq: Status: Active Protocol: Document 11/21/23 10:32 LRN (Rec: 11/21/23 11:17 LRN [id number]) Therapeutic Exercises Sitting Exercises Scapular retraction Sitting Exercise Name Scapular retraction Reps/Minutes 5 SH x 3 Comments VC and phys cues to retract w/ o shoulder elevation L UT stretch Sitting Exercise Name C. SB right Reps/Minutes 3 SH x 3 (Active assisted x 1, active x 2) Comments VC & phys c. to not lift L shoulder. Self-Care/Home Management Treatment Education Patient Education Home Exercise Program Other Education Discussed results of evaluation, goals, and plan of care (POC). Pt agreeable to goals and POC. Discussed activities to avoid (overhead reaching and lifting ), lifting keeping shoulder by sides. If hurts, don't do it. Answered mvmt questions and discussed holding off on RC strengthening to work on decreasing ms guarding an scapular stabilizing. Activities Self-Care/Home Management Activities I/S in L UT stretch and scapular retraction strengthening. I/S pt to use cryotherapy to the L shoulder frequently, 10- 15'. I/S pt could AROM of L shoulder but not into pain. PT-OP-T Assessment and Plan Start: 11/14/23 19:14 Freq: Status: Active Protocol: Document 11/21/23 10:32 LRN (Rec: 11/21/23 11:17 [facility] [id number]) Physical Therapy Assessment Rehab Potential Rehabilitation Potential Excellent Evaluation Complexity Number of Personal Factors/Comorbidities 1-2 Number of Body Systems Impaired 4 or More Clinical Presentation at Evaluation Evolving Impairments Impairments Pain,Posture,ROM,Soft Tissue Mobility,Strength Goals Three Impairment Poor posturing of L shoulder ( foward rounded and elevated) Impairment UE Quickdash score 9.09 (1-19% impaired, score 1-19). Reaching behind neck: L T3, R T4 Reaching behind back: L L2, R T8 Mcc Goal (LTG) Improve posturing of the L shoulder with improved functional L shoulder AROM LTG Duration 10 wks-01/30/24 Two Impairment Decreased L shoulder strength Impairment L shoulder strength: Flex, ER , horiz AD is 3+/5, otherwise is 5/5. Short Term Goal (STG) Improve L shoulder strength to relieve soreness with reaching overhead. STG Duration 4 wks-12/19/23 Concentrator Operator Goal (LTG) Improve L shoulder strength to relieve soreness with holding a weight over head 5-10#. LTG Duration 10 wks-01/30/24 One Impairment Pt lacks appropriate self care HEP. Short Term Goal (STG) Pt will be educated in self care pain management and best positioning for nighttime sleep to minimize pain. STG Duration 2 wks-12/05/23 Concentrator Operator Goal (LTG) Pt will be independent in an effective self care HEP of ROM & strengthening ex's of the L shoulder muscles and scapular stabilizers, to improve but not make sore his L lateral shoulder. 2 LTG Duration 10 wks-01/30/24 Assessment Summary Assessment Pt is a 68 yo male who presents with signs of positive L shoulder impingement, probably due to inflammation of RC tendons and poor scapular positioning/ stabilization. Postural changes visible (elevated and forward rounded L shoulder), with weakness and decreased ROM due to pain. The pt will benefit from skilled physical therapy to decrease pain, improve posture and functional use of the L shoulder w/ot pain. Physical Therapy Plan Frequency and Duration Frequency of Treatment 2x/Week Duration of treatment (weeks) 10 Plan of Care Start Date 11/21/23 Therapeutic Interventions Therapeutic Interventions Home Exercise Program,Joint Mobilizations,Manual Therapy, Neuromuscular Re-education, Self-Care/Home Management,Soft Tissue Mobilization,Taping, Therapeutic Activities, Therapeutic Exercises Modalities Cold Pack/Ice Massage,Electric Stimulation,Hot Packs, Ultrasound Next Visit Focus/Plan Next Note Type Treatment Note Next Visit Plan NEXT: Review HEP: L UT stretch and scapular pinches. Assess neck strength. Start Postural education and self care pain management (RICE); L shoulder ROM ex's, scapular stabilizer and RC strengthening. K-tape for inflammation and pain reduction.
--- NOTE | 2023-11-21 17:30 | PT.OIE ---
Current Diagnoses Other shoulder lesions, left shoulder (11/21/23) Past Medical History (Last Updated 10/27/23 @ 08:32 by Domingo Baptiste MD) Acquired hypothyroidism Allergic rhinitis Ankle pain (~1988) Arthritis Chicken pox (~1963) Erectile dysfunction Fractures (~1988) Heart murmur Hematuria (~2009) History of colonic polyps History of prostate cancer HLD (hyperlipidemia) Localized swelling, mass and lump, neck Mixed hyperlipidemia Mumps (~1963) Overweight Rosacea (~2009) Rubella (~1963) Past Surgical History (Last Reviewed 10/27/23 @ 05:13 by Domingo Baptiste MD) Anesthesia History of ankle surgery (1998) History of hernia surgery (2019) Hx of colonoscopy (2014) Hx of prostatectomy (2014) Hx of tonsillectomy (1961) Lipoma (~2021) Visit Care Team Role Provider Type Domingo Baptiste MD Attending Provider Physician Family Provider Primary Care Provider Referring Provider Specialty: Internal Medicine Address: [address] [place] [address] Email: [email or web address] Physical Therapy Initial Evaluation PT-OP-A Visit Information Start: 11/14/23 19:14 Freq: Status: Active Protocol: Document 11/21/23 10:32 LRN (Rec: 11/21/23 11:17 LRN [id number]) Out-Patient Physical Therapy Visit Information Visit Information Visit Type Initial Evaluation Visit Start Time 10:32 Visit Stop Time 11:15 Visit Number 1 Evaluation Information Evaluation Date 11/21/23 Precautions Precautions arthritis, thyroid disorder PT-OP-B Current Condition Start: 11/14/23 19:14 Freq: Status: Active Protocol: Document 11/21/23 10:32 LRN (Rec: 11/21/23 11:17 LRN [id number]) Current Condition History of Current Condition Onset Date 4-6 months ago Current Complaints L shoulder constant pain History of Current Condition L shoulder had been stiffer than right, then 2 months ago (in Dec), slipped on icy steps and landed on a step onto his L shoulder. He noticed with lifting his L arm (thumb pointing down), he was not able to lower his arm without it dropping. He is now able to perform the movement. States the muscle on the top of his shoulder (pointing to Supraspinatus) is the muscle affected. He had been trying to put up sheet rock and found it really hurt his L shoulder . He has constant soreness and if sleeps on L side, is bothered by pain. Pt is normally a L side sleeper. States he is improving and the shoulder is still sore. Pt is R handed. Prior Treatments and Tests X-ray (10/27/23): No fractures or dislocations. Report states: High-riding humeral head can be seen with rotator cuff injury. Treatment Goals Patient/Caregiver Goals Pt goal: Improve L shoulder strength to relieve soreness. Learn ex's to improve but not make sore. Personal Factors Other Personal Factors That May Effect Arthrits. Therapy/Recovery PT-OP-C Subjective Start: 11/14/23 19:14 Freq: Status: Active Protocol: Document 11/21/23 10:32 LRN (Rec: 11/21/23 11:17 LRN [id number]) Patient Questionnaires Quick Dash- Upper Extremity Quick Dash UE Score 9.09 Quick Dash UE Impairment 1 to 19% Impaired (Score 1-19) OP-PT Pain Assessment Pain Assessment Grid Paper Pain Assessment Grid Completed Yes Location L shoulder Pain Location Details Posterior Deltoid Intensity 2 Scale Used Numeric (0 - 10) Description Aching Frequency Constant Pain Aggravating Factors Activity Other Pain Aggravating Factors Holding arm or weight overhead Pain Alleviating Factors Cold PT-OP-E Functional Tests Start: 11/14/23 19:14 Freq: Status: Active Protocol: Document 11/21/23 10:32 LRN (Rec: 11/21/23 11:17 LRN [id number]) Functional Tests Apley's Scratch Test Action 1- Left Crest of spine Action 1- Right Crest of spine Action 2- Left T3 Action 2- Right T4 Action 3- Left L2 Action 3- Right T8 PT-OP-H Neuro Start: 11/14/23 19:14 Freq: Status: Active Protocol: Document 11/21/23 10:32 LRN (Rec: 11/21/23 11:17 LRN [id number]) Sensation Evaluation Gross Sensation Gross Sensation WNL PT-OP-J Posture/Palpation/Skin Start: 11/14/23 19:14 Freq: Status: Active Protocol: Document 11/21/23 10:32 LRN (Rec: 11/21/23 11:17 LRN [id number]) Posture Evaluation Position Standing Head/C-Spine Posture Forward Head Shoulder Posture (L) Rounded,(L) Forward,(L) Elevated Arm Posture (L) Internally Rotated,(R) Internally Rotated Comments Posture Comments Dowagers hump, straightened upper T/S curvature. Palpation Assessment Location L shoulder Palpation Location Between middle and posterior deltoid muscle. Palpation Findings Tenderness PT-OP-K Range of Motion Start: 11/14/23 19:14 Freq: Status: Active Protocol: Document 11/21/23 10:32 LRN (Rec: 11/21/23 11:17 LRN [id number]) Cervical Spine Range of Motion Cervical Spine Active Degrees Testing Position Sitting Extension 37 Rotation Left 70 Rotation Right 70 Lateral Flexion Left 26 Lateral Flexion Right 20 ROM Limitations Soft Tissue Tightness Shoulder Goniometric Range of Motion Shoulder Right Active Testing Position Sitting Flexion 155 Extension 65 Abduction 180 Internal Rotation Behind Back (text) T8 Left Active Testing Position Sitting Flexion 157 Extension 38 Abduction 110 Internal Rotation Behind Back (text) L2 Comments Pt has L shoulder pain with returning to resting. Pt able to do 180 deg's AB in scapular plane. Elbow/Forearm Range of Motion Elbow/Forearm Right Active Elbow/Forearm ROM WFL Yes ROM Testing Position Sitting Left Active Elbow/Forearm ROM WFL Yes ROM Testing Position Sitting PT-OP-L Special Tests Start: 11/14/23 19:14 Freq: Status: Active Protocol: Document 11/21/23 10:32 LRN (Rec: 11/21/23 11:17 LRN [id number]) Special Tests Shoulder Special Tests Passive ER Rotator Cuff Test Results + Comments ROM in neutral before pain increase. IR/Horizontal ADD Impingement Test Results + Elevation Impingement Test Results + Comments Pain only at end-range. PT-OP-M Strength Start: 11/14/23 19:14 Freq: Status: Active Protocol: Document 11/21/23 10:32 LRN (Rec: 11/21/23 11:17 LRN [id number]) Shoulder Strength Shoulder Manual Muscle Testing Right Comments Strength is 5/5. Left Flexion 3+ Fair+ External Rotation 3+ Fair+ Horizontal Adduction 3+ Fair+ Comments Pop w/o pain while testing Horizontal AB. Strength limited by pain. Elbow/Forearm Strength Elbow and Forearm Manual Muscle Testing Right Comments Strength is 5/5 Left Comments Strength is 5/5 PT-OP-Q Treatments Start: 11/14/23 19:14 Freq: Status: Active Protocol: Document 11/21/23 10:32 LRN (Rec: 11/21/23 11:17 LRN [id number]) Therapeutic Exercises Sitting Exercises Scapular retraction Sitting Exercise Name Scapular retraction Reps/Minutes 5 SH x 3 Comments VC and phys cues to retract w/ o shoulder elevation L UT stretch Sitting Exercise Name C. SB right Reps/Minutes 3 SH x 3 (Active assisted x 1, active x 2) Comments VC & phys c. to not lift L shoulder. Self-Care/Home Management Treatment Education Patient Education Home Exercise Program Other Education Discussed results of evaluation, goals, and plan of care (POC). Pt agreeable to goals and POC. Discussed activities to avoid (overhead reaching and lifting ), lifting keeping shoulder by sides. If hurts, don't do it. Answered mvmt questions and discussed holding off on RC strengthening to work on decreasing ms guarding an scapular stabilizing. Activities Self-Care/Home Management Activities I/S in L UT stretch and scapular retraction strengthening. I/S pt to use cryotherapy to the L shoulder frequently, 10- 15'. I/S pt could AROM of L shoulder but not into pain. PT-OP-T Assessment and Plan Start: 11/14/23 19:14 Freq: Status: Active Protocol: Document 11/21/23 10:32 LRN (Rec: 11/21/23 11:17 [facility] [id number]) Physical Therapy Assessment Rehab Potential Rehabilitation Potential Excellent Evaluation Complexity Number of Personal Factors/Comorbidities 1-2 Number of Body Systems Impaired 4 or More Clinical Presentation at Evaluation Evolving Impairments Impairments Pain,Posture,ROM,Soft Tissue Mobility,Strength Goals Three Impairment Poor posturing of L shoulder ( foward rounded and elevated) Impairment UE Quickdash score 9.09 (1-19% impaired, score 1-19). Reaching behind neck: L T3, R T4 Reaching behind back: L L2, R T8 Snf Goal (LTG) Improve posturing of the L shoulder with improved functional L shoulder AROM LTG Duration 10 wks-01/30/24 Two Impairment Decreased L shoulder strength Impairment L shoulder strength: Flex, ER , horiz AD is 3+/5, otherwise is 5/5. Short Term Goal (STG) Improve L shoulder strength to relieve soreness with reaching overhead. STG Duration 4 wks-12/19/23 Physician/Ophthalmologist Goal (LTG) Improve L shoulder strength to relieve soreness with holding a weight over head 5-10#. LTG Duration 10 wks-01/30/24 One Impairment Pt lacks appropriate self care HEP. Short Term Goal (STG) Pt will be educated in self care pain management and best positioning for nighttime sleep to minimize pain. STG Duration 2 wks-12/05/23 Physician/Ophthalmologist Goal (LTG) Pt will be independent in an effective self care HEP of ROM & strengthening ex's of the L shoulder muscles and scapular stabilizers, to improve but not make sore his L lateral shoulder. 2 LTG Duration 10 wks-01/30/24 Assessment Summary Assessment Pt is a 68 yo male who presents with signs of positive L shoulder impingement, probably due to inflammation of RC tendons and poor scapular positioning/ stabilization. Postural changes visible (elevated and forward rounded L shoulder), with weakness and decreased ROM due to pain. The pt will benefit from skilled physical therapy to decrease pain, improve posture and functional use of the L shoulder w/ot pain. Physical Therapy Plan Frequency and Duration Frequency of Treatment 2x/Week Duration of treatment (weeks) 10 Plan of Care Start Date 11/21/23 Plan of Care End Date 01/30/24 Therapeutic Interventions Therapeutic Interventions Home Exercise Program,Joint Mobilizations,Manual Therapy, Neuromuscular Re-education, Self-Care/Home Management,Soft Tissue Mobilization,Taping, Therapeutic Activities, Therapeutic Exercises Modalities Cold Pack/Ice Massage,Electric Stimulation,Hot Packs, Ultrasound Next Visit Focus/Plan Next Note Type Treatment Note Next Visit Plan NEXT: Review HEP: L UT stretch and scapular pinches. Assess neck strength. Start Postural education and self care pain management (RICE); L shoulder ROM ex's, scapular stabilizer and RC strengthening. K-tape for inflammation and pain reduction.
--- NOTE | 2023-11-21 17:30 | PT.OPPOC ---
Physical, Occupational & Speech Therapy At [facility] Current Diagnoses Other shoulder lesions, left shoulder (11/21/23) Visit Care Team Role Provider Type Domingo Baptiste MD Attending Provider Physician Family Provider Primary Care Provider Referring Provider Specialty: Internal Medicine Address: [address] [place] [address], [id number] Email: [email or web address] Plan Of Care PT-OP-T Assessment and Plan Start: 11/14/23 19:14 Freq: Status: Active Protocol: Document 11/21/23 10:32 LRN (Rec: 11/21/23 11:17 LRN [id number]) Physical Therapy Assessment Rehab Potential Rehabilitation Potential Excellent Evaluation Complexity Number of Personal Factors/Comorbidities 1-2 Number of Body Systems Impaired 4 or More Clinical Presentation at Evaluation Evolving Impairments Impairments Pain,Posture,ROM,Soft Tissue Mobility,Strength Goals Three Impairment Poor posturing of L shoulder ( foward rounded and elevated) Impairment UE Quickdash score 9.09 (1-19% impaired, score 1-19). Reaching behind neck: L T3, R T4 Reaching behind back: L L2, R T8 Senior Living Goal (LTG) Improve posturing of the L shoulder with improved functional L shoulder AROM LTG Duration 10 wks-01/30/24 Two Impairment Decreased L shoulder strength Impairment L shoulder strength: Flex, ER , horiz AD is 3+/5, otherwise is 5/5. Short Term Goal (STG) Improve L shoulder strength to relieve soreness with reaching overhead. STG Duration 4 wks-12/19/23 Senior Living Goal (LTG) Improve L shoulder strength to relieve soreness with holding a weight over head 5-10#. LTG Duration 10 wks-01/30/24 One Impairment Pt lacks appropriate self care HEP. Short Term Goal (STG) Pt will be educated in self care pain management and best positioning for nighttime sleep to minimize pain. STG Duration 2 wks-12/05/23 Multi Site Leasing Consultant Goal (LTG) Pt will be independent in an effective self care HEP of ROM & strengthening ex's of the L shoulder muscles and scapular stabilizers, to improve but not make sore his L lateral shoulder. 2 LTG Duration 10 wks-01/30/24 Assessment Summary Assessment Pt is a 68 yo male who presents with signs of positive L shoulder impingement, probably due to inflammation of RC tendons and poor scapular positioning/ stabilization. Postural changes visible (elevated and forward rounded L shoulder), with weakness and decreased ROM due to pain. The pt will benefit from skilled physical therapy to decrease pain, improve posture and functional use of the L shoulder w/ot pain. Physical Therapy Plan Frequency and Duration Frequency of Treatment 2x/Week Duration of treatment (weeks) 10 Plan of Care Start Date 11/21/23 Plan of Care End Date 01/30/24 Therapeutic Interventions Therapeutic Interventions Home Exercise Program,Joint Mobilizations,Manual Therapy, Neuromuscular Re-education, Self-Care/Home Management,Soft Tissue Mobilization,Taping, Therapeutic Activities, Therapeutic Exercises Modalities Cold Pack/Ice Massage,Electric Stimulation,Hot Packs, Ultrasound Next Visit Focus/Plan Next Note Type Treatment Note Next Visit Plan NEXT: Review HEP: L UT stretch and scapular pinches. Assess neck strength. Start Postural education and self care pain management (RICE); L shoulder ROM ex's, scapular stabilizer and RC strengthening. K-tape for inflammation and pain reduction. Plan of Care Dates Plan of Care Start Date 11/21/23 Plan of Care End Date 01/30/24 Electronically Signed by: Kristi Medina, PT 11/21/23 [id number] If you are in agreement with this Plan of Care, please return a signed and dated copy. I have reviewed this Plan of Care and certify that the skilled therapy services above are required to meet the patient?s needs. Physician Signature Date Printed Name and Credentials Clinical Instructor Signature Printed Name and Credentials
--- NOTE | 2023-11-25 13:45 | PT.OTN ---
Current Diagnoses Other shoulder lesions, left shoulder (11/25/23) Physical Therapy Treatment Note PT-OP-A Visit Information Start: 11/14/23 19:14 Freq: Status: Active Protocol: Document 11/25/23 10:36 LRN (Rec: 11/25/23 11:19 LRN [id number]) Out-Patient Physical Therapy Visit Information Visit Information Visit Type Initial Evaluation Visit Start Time 10:36 Visit Stop Time 11:18 Visit Number 2 Evaluation Information Evaluation Date 11/21/23 Precautions Precautions arthritis, thyroid disorder PT-OP-B Current Condition Start: 11/14/23 19:14 Freq: Status: Active Protocol: Document 11/21/23 10:32 LRN (Rec: 11/21/23 11:17 LRN [id number]) Current Condition History of Current Condition Onset Date 4-6 months ago Current Complaints L shoulder constant pain History of Current Condition L shoulder had been stiffer than right, then 2 months ago (in Dec), slipped on icy steps and landed on a step onto his L shoulder. He noticed with lifting his L arm (thumb pointing down), he was not able to lower his arm without it dropping. He is now able to perform the movement. States the muscle on the top of his shoulder (pointing to Supraspinatus) is the muscle affected. He had been trying to put up sheet rock and found it really hurt his L shoulder . He has constant soreness and if sleeps on L side, is bothered by pain. Pt is normally a L side sleeper. States he is improving and the shoulder is still sore. Pt is R handed. Prior Treatments and Tests X-ray (10/27/23): No fractures or dislocations. Report states: High-riding humeral head can be seen with rotator cuff injury. Treatment Goals Patient/Caregiver Goals Pt goal: Improve L shoulder strength to relieve soreness. Learn ex's to improve but not make sore. Personal Factors Other Personal Factors That May Effect Arthrits. Therapy/Recovery PT-OP-C Subjective Start: 11/14/23 19:14 Freq: Status: Active Protocol: Document 11/25/23 10:36 LRN (Rec: 11/25/23 11:19 LRN [id number]) OP-PT Subjective Patient Comments Patient Comments States no change. PT-OP-E Functional Tests Start: 11/14/23 19:14 Freq: Status: Active Protocol: Document 11/21/23 10:32 LRN (Rec: 11/21/23 11:17 LRN [id number]) Functional Tests Apley's Scratch Test Action 1- Left Crest of spine Action 1- Right Crest of spine Action 2- Left T3 Action 2- Right T4 Action 3- Left L2 Action 3- Right T8 PT-OP-H Neuro Start: 11/14/23 19:14 Freq: Status: Active Protocol: Document 11/21/23 10:32 LRN (Rec: 11/21/23 11:17 LRN [id number]) Sensation Evaluation Gross Sensation Gross Sensation WNL PT-OP-J Posture/Palpation/Skin Start: 11/14/23 19:14 Freq: Status: Active Protocol: Document 11/21/23 10:32 LRN (Rec: 11/21/23 11:17 LRN [id number]) Posture Evaluation Position Standing Head/C-Spine Posture Forward Head Shoulder Posture (L) Rounded,(L) Forward,(L) Elevated Arm Posture (L) Internally Rotated,(R) Internally Rotated Comments Posture Comments Dowagers hump, straightened upper T/S curvature. Palpation Assessment Location L shoulder Palpation Location Between middle and posterior deltoid muscle. Palpation Findings Tenderness PT-OP-K Range of Motion Start: 11/14/23 19:14 Freq: Status: Active Protocol: Document 11/21/23 10:32 LRN (Rec: 11/21/23 11:17 LRN [id number]) Cervical Spine Range of Motion Cervical Spine Active Degrees Testing Position Sitting Extension 37 Rotation Left 70 Rotation Right 70 Lateral Flexion Left 26 Lateral Flexion Right 20 ROM Limitations Soft Tissue Tightness Shoulder Goniometric Range of Motion Shoulder Right Active Testing Position Sitting Flexion 155 Extension 65 Abduction 180 Internal Rotation Behind Back (text) T8 Left Active Testing Position Sitting Flexion 157 Extension 38 Abduction 110 Internal Rotation Behind Back (text) L2 Comments Pt has L shoulder pain with returning to resting. Pt able to do 180 deg's AB in scapular plane. Elbow/Forearm Range of Motion Elbow/Forearm Right Active Elbow/Forearm ROM WFL Yes ROM Testing Position Sitting Left Active Elbow/Forearm ROM WFL Yes ROM Testing Position Sitting PT-OP-L Special Tests Start: 11/14/23 19:14 Freq: Status: Active Protocol: Document 11/21/23 10:32 LRN (Rec: 11/21/23 11:17 LRN [id number]) Special Tests Shoulder Special Tests Passive ER Rotator Cuff Test Results + Comments ROM in neutral before pain increase. IR/Horizontal ADD Impingement Test Results + Elevation Impingement Test Results + Comments Pain only at end-range. PT-OP-M Strength Start: 11/14/23 19:14 Freq: Status: Active Protocol: Document 11/25/23 10:36 LRN (Rec: 11/25/23 11:19 LRN [id number]) Cervical Spine Strength Cervical Spine Manual Muscle Testing Comments Strength is 5/5 in all areas. PT-OP-Q Treatments Start: 11/14/23 19:14 Freq: Status: Active Protocol: Document 11/25/23 10:36 LRN (Rec: 11/25/23 11:19 LRN [id number]) Therapeutic Exercises Supine Exercises L shldr IR Supine Exercise Name Shdr IR w/arm at: 0 deg's, 30 deg's, 45 deg's AB. Side left Reps/Minutes 11' Comments Cued for painfree range (@ 30 & 45 deg's AB he has ~20 degs ER) Sidelying Exercises L shdr ER Sidelying Exercise Name L shdr AROM ER without and with manual traction and scapular training Side left Reps/Minutes 10' Sitting Exercises Scapular retraction Sitting Exercise Name Scapular retraction Reps/Minutes 10 SH x 10 Comments VC and phys cues to retract w/ o shoulder elevation L UT stretch Sitting Exercise Name C. SB right Reps/Minutes 10 SH x 10 Comments VC to not rot head and he can tuck chin. Manual Therapy Treatment Manual Techniques MWM: L shdr flex Type MWM: L shdr flex with scapular cuing for depression/retract Body Location L shoulder Body Position Sitting unsupported Reps/Duration 10' Comments Pt has soreness at ~120 deg's flex. Self-Care/Home Management Treatment Education Patient Education Posture Other Education Pt educated in sitting posture of ear over shoulder, over hips. Pt educated in best side sleeping posture (shelley) to avoid L shoulder pain. PT-OP-T Assessment and Plan Start: 11/14/23 19:14 Freq: Status: Active Protocol: Document 11/25/23 10:36 LRN (Rec: 11/25/23 11:19 LRN [id number]) Physical Therapy Assessment Goals Three Impairment Poor posturing of L shoulder ( foward rounded and elevated) Impairment UE Quickdash score 9.09 (1-19% impaired, score 1-19). Reaching behind neck: L T3, R T4 Reaching behind back: L L2, R T8 Halfway Goal (LTG) Improve posturing of the L shoulder with improved functional L shoulder AROM LTG Duration 10 wks-01/30/24 Two Impairment Decreased L shoulder strength Impairment L shoulder strength: Flex, ER , horiz AD is 3+/5, otherwise is 5/5. Short Term Goal (STG) Improve L shoulder strength to relieve soreness with reaching overhead. STG Duration 4 wks-12/19/23 Edger Runner Goal (LTG) Improve L shoulder strength to relieve soreness with holding a weight over head 5-10#. LTG Duration 10 wks-01/30/24 One Impairment Pt lacks appropriate self care HEP. Short Term Goal (STG) Pt will be educated in self care pain management and best positioning for nighttime sleep to minimize pain. STG Duration 2 wks-12/05/23 (11/25/23: MET GOAL) Edger Runner Goal (LTG) Pt will be independent in an effective self care HEP of ROM & strengthening ex's of the L shoulder muscles and scapular stabilizers, to improve but not make sore his L lateral shoulder. 11/25/23: HEP: L UT stretch, scap retract/depression, neck elongation in proper sit posture, sup and sidelie L shdr ER/IR. LTG Duration 10 wks-01/30/24 progressed 11/25/23 Assessment Summary Assessment Pt is a 68 yo male who presents with signs of positive L shoulder impingement, probably due to inflammation of RC tendons and poor scapular positioning/ stabilization. Pt able to perform L shoulder ER with greater range when scapula is retracted and depressed. Physical Therapy Plan Frequency and Duration Frequency of Treatment 2x/Week Duration of treatment (weeks) 10 Plan of Care Start Date 11/21/23 Plan of Care End Date 01/30/24 Next Visit Focus/Plan Next Note Type Treatment Note Next Visit Plan NEXT: Scapular postural education/strengthening and self care pain management ( RICE); scapular stabilizer, L shoulder ROM ex's, and RC strengthening. K-tape for inflammation and pain reduction.
--- NOTE | 2023-11-25 13:46 | PT.OTN ---
Current Diagnoses Other shoulder lesions, left shoulder (11/25/23) Physical Therapy Treatment Note PT-OP-A Visit Information Start: 11/14/23 19:14 Freq: Status: Active Protocol: Document 11/25/23 10:36 LRN (Rec: 11/25/23 11:19 LRN [id number]) Out-Patient Physical Therapy Visit Information Visit Information Visit Type Initial Evaluation Visit Start Time 10:36 Visit Stop Time 11:18 Visit Number 2 Evaluation Information Evaluation Date 11/21/23 Precautions Precautions arthritis, thyroid disorder PT-OP-B Current Condition Start: 11/14/23 19:14 Freq: Status: Active Protocol: Document 11/21/23 10:32 LRN (Rec: 11/21/23 11:17 LRN [id number]) Current Condition History of Current Condition Onset Date 4-6 months ago Current Complaints L shoulder constant pain History of Current Condition L shoulder had been stiffer than right, then 2 months ago (in Dec), slipped on icy steps and landed on a step onto his L shoulder. He noticed with lifting his L arm (thumb pointing down), he was not able to lower his arm without it dropping. He is now able to perform the movement. States the muscle on the top of his shoulder (pointing to Supraspinatus) is the muscle affected. He had been trying to put up sheet rock and found it really hurt his L shoulder . He has constant soreness and if sleeps on L side, is bothered by pain. Pt is normally a L side sleeper. States he is improving and the shoulder is still sore. Pt is R handed. Prior Treatments and Tests X-ray (10/27/23): No fractures or dislocations. Report states: High-riding humeral head can be seen with rotator cuff injury. Treatment Goals Patient/Caregiver Goals Pt goal: Improve L shoulder strength to relieve soreness. Learn ex's to improve but not make sore. Personal Factors Other Personal Factors That May Effect Arthrits. Therapy/Recovery PT-OP-C Subjective Start: 11/14/23 19:14 Freq: Status: Active Protocol: Document 11/25/23 10:36 LRN (Rec: 11/25/23 11:19 LRN [id number]) OP-PT Subjective Patient Comments Patient Comments States no change. PT-OP-E Functional Tests Start: 11/14/23 19:14 Freq: Status: Active Protocol: Document 11/21/23 10:32 LRN (Rec: 11/21/23 11:17 LRN [id number]) Functional Tests Apley's Scratch Test Action 1- Left Crest of spine Action 1- Right Crest of spine Action 2- Left T3 Action 2- Right T4 Action 3- Left L2 Action 3- Right T8 PT-OP-H Neuro Start: 11/14/23 19:14 Freq: Status: Active Protocol: Document 11/21/23 10:32 LRN (Rec: 11/21/23 11:17 LRN [id number]) Sensation Evaluation Gross Sensation Gross Sensation WNL PT-OP-J Posture/Palpation/Skin Start: 11/14/23 19:14 Freq: Status: Active Protocol: Document 11/21/23 10:32 LRN (Rec: 11/21/23 11:17 LRN [id number]) Posture Evaluation Position Standing Head/C-Spine Posture Forward Head Shoulder Posture (L) Rounded,(L) Forward,(L) Elevated Arm Posture (L) Internally Rotated,(R) Internally Rotated Comments Posture Comments Dowagers hump, straightened upper T/S curvature. Palpation Assessment Location L shoulder Palpation Location Between middle and posterior deltoid muscle. Palpation Findings Tenderness PT-OP-K Range of Motion Start: 11/14/23 19:14 Freq: Status: Active Protocol: Document 11/21/23 10:32 LRN (Rec: 11/21/23 11:17 LRN [id number]) Cervical Spine Range of Motion Cervical Spine Active Degrees Testing Position Sitting Extension 37 Rotation Left 70 Rotation Right 70 Lateral Flexion Left 26 Lateral Flexion Right 20 ROM Limitations Soft Tissue Tightness Shoulder Goniometric Range of Motion Shoulder Right Active Testing Position Sitting Flexion 155 Extension 65 Abduction 180 Internal Rotation Behind Back (text) T8 Left Active Testing Position Sitting Flexion 157 Extension 38 Abduction 110 Internal Rotation Behind Back (text) L2 Comments Pt has L shoulder pain with returning to resting. Pt able to do 180 deg's AB in scapular plane. Elbow/Forearm Range of Motion Elbow/Forearm Right Active Elbow/Forearm ROM WFL Yes ROM Testing Position Sitting Left Active Elbow/Forearm ROM WFL Yes ROM Testing Position Sitting PT-OP-L Special Tests Start: 11/14/23 19:14 Freq: Status: Active Protocol: Document 11/21/23 10:32 LRN (Rec: 11/21/23 11:17 LRN [id number]) Special Tests Shoulder Special Tests Passive ER Rotator Cuff Test Results + Comments ROM in neutral before pain increase. IR/Horizontal ADD Impingement Test Results + Elevation Impingement Test Results + Comments Pain only at end-range. PT-OP-M Strength Start: 11/14/23 19:14 Freq: Status: Active Protocol: Document 11/25/23 10:36 LRN (Rec: 11/25/23 11:19 LRN [id number]) Cervical Spine Strength Cervical Spine Manual Muscle Testing Comments Strength is 5/5 in all areas. PT-OP-Q Treatments Start: 11/14/23 19:14 Freq: Status: Active Protocol: Document 11/25/23 10:36 LRN (Rec: 11/25/23 11:19 LRN [id number]) Therapeutic Exercises Supine Exercises L shldr IR Supine Exercise Name Shdr IR w/arm at: 0 deg's, 30 deg's, 45 deg's AB. Side left Reps/Minutes 11' Comments Cued for painfree range (@ 30 & 45 deg's AB he has ~20 degs ER) Sidelying Exercises L shdr ER Sidelying Exercise Name L shdr AROM ER without and with manual traction and scapular training Side left Reps/Minutes 10' Sitting Exercises Scapular retraction Sitting Exercise Name Scapular retraction Reps/Minutes 10 SH x 10 Comments VC and phys cues to retract w/ o shoulder elevation L UT stretch Sitting Exercise Name C. SB right Reps/Minutes 10 SH x 10 Comments VC to not rot head and he can tuck chin. Manual Therapy Treatment Manual Techniques MWM: L shdr flex Type MWM: L shdr flex with scapular cuing for depression/retract Body Location L shoulder Body Position Sitting unsupported Reps/Duration 10' Comments Pt has soreness at ~120 deg's flex. Self-Care/Home Management Treatment Education Patient Education Posture Other Education Pt educated in sitting posture of ear over shoulder, over hips. Pt educated in best side sleeping posture (shelley) to avoid L shoulder pain. PT-OP-T Assessment and Plan Start: 11/14/23 19:14 Freq: Status: Active Protocol: Document 11/25/23 10:36 LRN (Rec: 11/25/23 11:19 LRN [id number]) Physical Therapy Assessment Goals Three Impairment Poor posturing of L shoulder ( foward rounded and elevated) Impairment UE Quickdash score 9.09 (1-19% impaired, score 1-19). Reaching behind neck: L T3, R T4 Reaching behind back: L L2, R T8 Long-Term Goal (LTG) Improve posturing of the L shoulder with improved functional L shoulder AROM LTG Duration 10 wks-01/30/24 Two Impairment Decreased L shoulder strength Impairment L shoulder strength: Flex, ER , horiz AD is 3+/5, otherwise is 5/5. Short Term Goal (STG) Improve L shoulder strength to relieve soreness with reaching overhead. STG Duration 4 wks-12/19/23 Manager Financial Reporting Goal (LTG) Improve L shoulder strength to relieve soreness with holding a weight over head 5-10#. LTG Duration 10 wks-01/30/24 One Impairment Pt lacks appropriate self care HEP. Short Term Goal (STG) Pt will be educated in self care pain management and best positioning for nighttime sleep to minimize pain. STG Duration 2 wks-12/05/23 (11/25/23: MET GOAL) Manager Financial Reporting Goal (LTG) Pt will be independent in an effective self care HEP of ROM & strengthening ex's of the L shoulder muscles and scapular stabilizers, to improve but not make sore his L lateral shoulder. 11/25/23: HEP: L UT stretch, scap retract/depression, neck elongation in proper sit posture, sup and sidelie L shdr ER/IR. LTG Duration 10 wks-01/30/24 progressed 11/25/23 Assessment Summary Assessment Pt is a 68 yo male who presents with signs of positive L shoulder impingement, probably due to inflammation of RC tendons and poor scapular positioning/ stabilization. Pt able to perform L shoulder ER with greater range when scapula is retracted and depressed. Physical Therapy Plan Frequency and Duration Frequency of Treatment 2x/Week Duration of treatment (weeks) 10 Plan of Care Start Date 11/21/23 Plan of Care End Date 01/30/24 Next Visit Focus/Plan Next Note Type Treatment Note Next Visit Plan NEXT: Scapular postural education/strengthening and self care pain management ( RICE); scapular stabilizer, L shoulder ROM ex's, and RC strengthening. K-tape for inflammation and pain reduction.
--- NOTE | 2023-11-28 11:12 | PT.OTN ---
Current Diagnoses Other shoulder lesions, left shoulder (11/28/23) Physical Therapy Treatment Note PT-OP-A Visit Information Start: 11/14/23 19:14 Freq: Status: Active Protocol: Document 11/28/23 08:01 AB (Rec: 11/28/23 11:12 AB [id number]) Out-Patient Physical Therapy Visit Information Visit Information Visit Type Treatment Note Visit Note Access Code [email or web address] Visit Start Time 08:17 Visit Stop Time 09:01 Visit Number 3 Number of RAG BALER Visits 1 Evaluation Information Evaluation Date 11/21/23 Precautions Precautions arthritis, thyroid disorder PT-OP-B Current Condition Start: 11/14/23 19:14 Freq: Status: Active Protocol: Document 11/21/23 10:32 LRN (Rec: 11/21/23 11:17 LRN [id number]) Current Condition History of Current Condition Onset Date 4-6 months ago Current Complaints L shoulder constant pain History of Current Condition L shoulder had been stiffer than right, then 2 months ago (in Dec), slipped on icy steps and landed on a step onto his L shoulder. He noticed with lifting his L arm (thumb pointing down), he was not able to lower his arm without it dropping. He is now able to perform the movement. States the muscle on the top of his shoulder (pointing to Supraspinatus) is the muscle affected. He had been trying to put up sheet rock and found it really hurt his L shoulder . He has constant soreness and if sleeps on L side, is bothered by pain. Pt is normally a L side sleeper. States he is improving and the shoulder is still sore. Pt is R handed. Prior Treatments and Tests X-ray (10/27/23): No fractures or dislocations. Report states: High-riding humeral head can be seen with rotator cuff injury. Treatment Goals Patient/Caregiver Goals Pt goal: Improve L shoulder strength to relieve soreness. Learn ex's to improve but not make sore. Personal Factors Other Personal Factors That May Effect Arthrits. Therapy/Recovery PT-OP-C Subjective Start: 11/14/23 19:14 Freq: Status: Active Protocol: Document 11/28/23 08:01 AB (Rec: 11/28/23 11:12 AB [id number]) OP-PT Subjective Patient Comments Patient Comments Patient reports the shoulder is the same, reports performing the exercises every day. PT-OP-E Functional Tests Start: 11/14/23 19:14 Freq: Status: Active Protocol: Document 11/21/23 10:32 LRN (Rec: 11/21/23 11:17 LRN [id number]) Functional Tests Apley's Scratch Test Action 1- Left Crest of spine Action 1- Right Crest of spine Action 2- Left T3 Action 2- Right T4 Action 3- Left L2 Action 3- Right T8 PT-OP-H Neuro Start: 11/14/23 19:14 Freq: Status: Active Protocol: Document 11/21/23 10:32 LRN (Rec: 11/21/23 11:17 LRN [id number]) Sensation Evaluation Gross Sensation Gross Sensation WNL PT-OP-J Posture/Palpation/Skin Start: 11/14/23 19:14 Freq: Status: Active Protocol: Document 11/21/23 10:32 LRN (Rec: 11/21/23 11:17 LRN [id number]) Posture Evaluation Position Standing Head/C-Spine Posture Forward Head Shoulder Posture (L) Rounded,(L) Forward,(L) Elevated Arm Posture (L) Internally Rotated,(R) Internally Rotated Comments Posture Comments Dowagers hump, straightened upper T/S curvature. Palpation Assessment Location L shoulder Palpation Location Between middle and posterior deltoid muscle. Palpation Findings Tenderness PT-OP-K Range of Motion Start: 11/14/23 19:14 Freq: Status: Active Protocol: Document 11/21/23 10:32 LRN (Rec: 11/21/23 11:17 LRN [id number]) Cervical Spine Range of Motion Cervical Spine Active Degrees Testing Position Sitting Extension 37 Rotation Left 70 Rotation Right 70 Lateral Flexion Left 26 Lateral Flexion Right 20 ROM Limitations Soft Tissue Tightness Shoulder Goniometric Range of Motion Shoulder Right Active Testing Position Sitting Flexion 155 Extension 65 Abduction 180 Internal Rotation Behind Back (text) T8 Left Active Testing Position Sitting Flexion 157 Extension 38 Abduction 110 Internal Rotation Behind Back (text) L2 Comments Pt has L shoulder pain with returning to resting. Pt able to do 180 deg's AB in scapular plane. Elbow/Forearm Range of Motion Elbow/Forearm Right Active Elbow/Forearm ROM WFL Yes ROM Testing Position Sitting Left Active Elbow/Forearm ROM WFL Yes ROM Testing Position Sitting PT-OP-L Special Tests Start: 11/14/23 19:14 Freq: Status: Active Protocol: Document 11/21/23 10:32 LRN (Rec: 11/21/23 11:17 LRN [id number]) Special Tests Shoulder Special Tests Passive ER Rotator Cuff Test Results + Comments ROM in neutral before pain increase. IR/Horizontal ADD Impingement Test Results + Elevation Impingement Test Results + Comments Pain only at end-range. PT-OP-M Strength Start: 11/14/23 19:14 Freq: Status: Active Protocol: Document 11/25/23 10:36 LRN (Rec: 11/25/23 11:19 LRN [id number]) Cervical Spine Strength Cervical Spine Manual Muscle Testing Comments Strength is 5/5 in all areas. PT-OP-Q Treatments Start: 11/14/23 19:14 Freq: Status: Active Protocol: Document 11/28/23 08:01 AB (Rec: 11/28/23 11:12 AB [id number]) Therapeutic Exercises Supine Exercises supine shoulder flexion Supine Exercise Name AROM Side bilateral Reps/Minutes 2 with 10 sec hold Comments reports increased soreness with raising and lowering mini band supine Supine Exercise Name ER with band with flexion Side bilateral Resistance level one light blue band Reps/Minutes X10 Comments reports decreased band pec stretch on 1/2 soft foam roller Supine Exercise Name to use rolled blanket or yoga mat at home Side bilateral Equipment Used 1/2 soft foam roller Reps/Minutes 3 min Comments VC for UE position and breathing from diaphagm L shldr IR Supine Exercise Name UE at 60 deg abduction Side left Reps/Minutes X12 Comments focus and self tactile cues to avoid ant translat of humerus Sidelying Exercises L shdr ER Sidelying Exercise Name left shoulder AROM ER Side left Equipment Used 1 Comments reports soreness Standing Exercises isometric reactive shoulder IR and ER Side bilateral Equipment Used level one light blue band Reps/Minutes X10 Comments Verbal cues monitored for pain high row Side bilateral Resistance level one light blue band Reps/Minutes 2X10 row Side bilateral Equipment Used level one light blue band Reps/Minutes 2X10 Manual Therapy Treatment Soft Tissue Mobilization pec, post cuff, periscapular, infra and supra spinatus Body Location left shoulder Mobilization Type Cross-Friction,Rolling,Other Intensity/Depth Moderate Body Position supine and sidelying Comments Superficial for supra and infra monitored for pain Joint Mobilizations scapular Joint left scapula Direction depression and adduction Grade IV Body Position Sidelying Reps/Duration 15 each Comments monitored for pain left GH Direction ap, inf Grade III Body Position Supine Reps/Duration 10 Comments monitored for pain Self-Care/Home Management Treatment Education Other Education Reviewed Scapular postural education/strengthening and self care pain management ( ONELIA); PT-OP-T Assessment and Plan Start: 11/14/23 19:14 Freq: Status: Active Protocol: Document 11/28/23 08:01 AB (Rec: 11/28/23 11:12 AB [id number]) Physical Therapy Assessment Goals Three Impairment Poor posturing of L shoulder ( foward rounded and elevated) Impairment UE Quickdash score 9.09 (1-19% impaired, score 1-19). Reaching behind neck: L T3, R T4 Reaching behind back: L L2, R T8 Nurse Head Goal (LTG) Improve posturing of the L shoulder with improved functional L shoulder AROM LTG Duration 10 wks-01/30/24 Two Impairment Decreased L shoulder strength Impairment L shoulder strength: Flex, ER , horiz AD is 3+/5, otherwise is 5/5. Short Term Goal (STG) Improve L shoulder strength to relieve soreness with reaching overhead. STG Duration 4 wks-12/19/23 [facility] Goal (LTG) Improve L shoulder strength to relieve soreness with holding a weight over head 5-10#. LTG Duration 10 wks-01/30/24 One Impairment Pt lacks appropriate self care HEP. Short Term Goal (STG) Pt will be educated in self care pain management and best positioning for nighttime sleep to minimize pain. STG Duration 2 wks-12/05/23 (11/25/23: MET GOAL) Nurse Head Goal (LTG) Pt will be independent in an effective self care HEP of ROM & strengthening ex's of the L shoulder muscles and scapular stabilizers, to improve but not make sore his L lateral shoulder. 11/25/23: HEP: L UT stretch, scap retract/depression, neck elongation in proper sit posture, sup and sidelie L shdr ER/IR. LTG Duration 10 wks-01/30/24 progressed 11/25/23 Assessment Summary Assessment Jorge into session with AROM 146 deg flexion left shoulder, end of session with 149 deg AROM shoulder flexion, reporting no increase in pain, good tolerance to all exercises except sidelying shoulder ER AROM. Physical Therapy Plan Frequency and Duration Frequency of Treatment 2x/Week Duration of treatment (weeks) 10 Plan of Care Start Date 11/21/23 Plan of Care End Date 01/30/24 Next Visit Focus/Plan Next Visit Plan NEXT: L shoulder ROM ex's/ flex to HEP, and RC strengthening to HEP. next session K-tape for inflammation and pain reduction. Review sleep positions
--- NOTE | 2023-12-03 11:49 | PT.OTN ---
Current Diagnoses Other shoulder lesions, left shoulder (12/03/23) Physical Therapy Treatment Note PT-OP-A Visit Information Start: 11/14/23 19:14 Freq: Status: Active Protocol: Document 12/03/23 08:07 AB (Rec: 12/03/23 11:49 AB [id number]) Out-Patient Physical Therapy Visit Information Visit Information Visit Type Treatment Note Visit Note Access Code [email or web address] Visit Start Time 09:46 Visit Stop Time 10:29 Visit Number 4 Number of [employer]IP[employer] BOARDS Visits 2 Evaluation Information Evaluation Date 11/21/23 Precautions Precautions arthritis, thyroid disorder PT-OP-B Current Condition Start: 11/14/23 19:14 Freq: Status: Active Protocol: Document 11/21/23 10:32 LRN (Rec: 11/21/23 11:17 LRN [id number]) Current Condition History of Current Condition Onset Date 4-6 months ago Current Complaints L shoulder constant pain History of Current Condition L shoulder had been stiffer than right, then 2 months ago (in Dec), slipped on icy steps and landed on a step onto his L shoulder. He noticed with lifting his L arm (thumb pointing down), he was not able to lower his arm without it dropping. He is now able to perform the movement. States the muscle on the top of his shoulder (pointing to Supraspinatus) is the muscle affected. He had been trying to put up sheet rock and found it really hurt his L shoulder . He has constant soreness and if sleeps on L side, is bothered by pain. Pt is normally a L side sleeper. States he is improving and the shoulder is still sore. Pt is R handed. Prior Treatments and Tests X-ray (10/27/23): No fractures or dislocations. Report states: High-riding humeral head can be seen with rotator cuff injury. Treatment Goals Patient/Caregiver Goals Pt goal: Improve L shoulder strength to relieve soreness. Learn ex's to improve but not make sore. Personal Factors Other Personal Factors That May Effect Arthrits. Therapy/Recovery PT-OP-C Subjective Start: 11/14/23 19:14 Freq: Status: Active Protocol: Document 12/03/23 08:07 AB (Rec: 12/03/23 11:49 AB [id number]) OP-PT Subjective Patient Comments Patient Comments Patient reports the shoulder is the same, has some questions regarding UE position on high row, reports HEP as instructed. AROM left shoulder flexion 150 deg start of session. PT-OP-E Functional Tests Start: 11/14/23 19:14 Freq: Status: Active Protocol: Document 11/21/23 10:32 LRN (Rec: 11/21/23 11:17 LRN [id number]) Functional Tests Apley's Scratch Test Action 1- Left Crest of spine Action 1- Right Crest of spine Action 2- Left T3 Action 2- Right T4 Action 3- Left L2 Action 3- Right T8 PT-OP-H Neuro Start: 11/14/23 19:14 Freq: Status: Active Protocol: Document 11/21/23 10:32 LRN (Rec: 11/21/23 11:17 LRN [id number]) Sensation Evaluation Gross Sensation Gross Sensation WNL PT-OP-J Posture/Palpation/Skin Start: 11/14/23 19:14 Freq: Status: Active Protocol: Document 11/21/23 10:32 LRN (Rec: 11/21/23 11:17 LRN [id number]) Posture Evaluation Position Standing Head/C-Spine Posture Forward Head Shoulder Posture (L) Rounded,(L) Forward,(L) Elevated Arm Posture (L) Internally Rotated,(R) Internally Rotated Comments Posture Comments Dowagers hump, straightened upper T/S curvature. Palpation Assessment Location L shoulder Palpation Location Between middle and posterior deltoid muscle. Palpation Findings Tenderness PT-OP-K Range of Motion Start: 11/14/23 19:14 Freq: Status: Active Protocol: Document 11/21/23 10:32 LRN (Rec: 11/21/23 11:17 LRN [id number]) Cervical Spine Range of Motion Cervical Spine Active Degrees Testing Position Sitting Extension 37 Rotation Left 70 Rotation Right 70 Lateral Flexion Left 26 Lateral Flexion Right 20 ROM Limitations Soft Tissue Tightness Shoulder Goniometric Range of Motion Shoulder Right Active Testing Position Sitting Flexion 155 Extension 65 Abduction 180 Internal Rotation Behind Back (text) T8 Left Active Testing Position Sitting Flexion 157 Extension 38 Abduction 110 Internal Rotation Behind Back (text) L2 Comments Pt has L shoulder pain with returning to resting. Pt able to do 180 deg's AB in scapular plane. Elbow/Forearm Range of Motion Elbow/Forearm Right Active Elbow/Forearm ROM WFL Yes ROM Testing Position Sitting Left Active Elbow/Forearm ROM WFL Yes ROM Testing Position Sitting PT-OP-L Special Tests Start: 11/14/23 19:14 Freq: Status: Active Protocol: Document 11/21/23 10:32 LRN (Rec: 11/21/23 11:17 LRN [id number]) Special Tests Shoulder Special Tests Passive ER Rotator Cuff Test Results + Comments ROM in neutral before pain increase. IR/Horizontal ADD Impingement Test Results + Elevation Impingement Test Results + Comments Pain only at end-range. PT-OP-M Strength Start: 11/14/23 19:14 Freq: Status: Active Protocol: Document 11/25/23 10:36 LRN (Rec: 11/25/23 11:19 LRN [id number]) Cervical Spine Strength Cervical Spine Manual Muscle Testing Comments Strength is 5/5 in all areas. PT-OP-Q Treatments Start: 11/14/23 19:14 Freq: Status: Active Protocol: Document 12/03/23 08:07 AB (Rec: 12/03/23 11:49 AB [id number]) Therapeutic Exercises Supine Exercises supine shoulder flexion Supine Exercise Name AROM Side bilateral Reps/Minutes X10 with 10 sec hold Comments reports increased soreness with raising and lowering mini band supine Supine Exercise Name ER with band with flexion Side bilateral Resistance level one light blue band Reps/Minutes X10 Comments reports no increase in pain pec stretch on 1/2 soft foam roller Supine Exercise Name to use rolled blanket or yoga mat at home Side bilateral Equipment Used 1/2 soft foam roller Reps/Minutes 3 min Comments VC for UE position and breathing from diaphagm Standing Exercises high row Side bilateral Resistance level one X 10 level 2 X 10 level 3 X 2 not milton row Side bilateral Equipment Used level one peach band trial of level 2 X 3 not miltno Reps/Minutes 2X10 Manual Therapy Treatment Soft Tissue Mobilization pec, post cuff, periscapular, infra and supra spinatus Body Location left shoulder Mobilization Type Cross-Friction,Rolling,Other Intensity/Depth Moderate Body Position supine and sidelying Comments Superficial for supra and infra monitored for pain Joint Mobilizations left GH distraction Joint left GH Direction distraction Grade II Body Position Hooklying Reps/Duration X8 Comments With PROM ER at 70 deg abduction scapular Joint left scapula Direction depression and adduction Grade IV Body Position Sidelying Reps/Duration 15 each Comments monitored for pain left GH Direction ap, inf Grade III Body Position Supine Reps/Duration 10 Comments monitored for pain Self-Care/Home Management Treatment Education Other Education Patient ed to sleep with pillows under left shoulder when in right sidelying and that left sidelying is likely to be uncomfortable at his time/ trial of partially left sidelying with left shoulder fwd, may be attempted if not painful, and patient trialed this position in clinic today. Activities Self-Care/Home Management Activities mini band single thickness in supine, level one band to HEP ( flexion with resisted ER ) and supine shoulder flexion with 10 second hold for gentle gravity assisted stretch to HEP PT-OP-T Assessment and Plan Start: 11/14/23 19:14 Freq: Status: Active Protocol: Document 12/03/23 08:07 AB (Rec: 12/03/23 11:49 AB [id number]) Physical Therapy Assessment Goals Three Impairment Poor posturing of L shoulder ( foward rounded and elevated) Impairment UE Quickdash score 9.09 (1-19% impaired, score 1-19). Reaching behind neck: L T3, R T4 Reaching behind back: L L2, R T8 Skilled Nursing Goal (LTG) Improve posturing of the L shoulder with improved functional L shoulder AROM LTG Duration 10 wks-01/30/24 Two Impairment Decreased L shoulder strength Impairment L shoulder strength: Flex, ER , horiz AD is 3+/5, otherwise is 5/5. Short Term Goal (STG) Improve L shoulder strength to relieve soreness with reaching overhead. STG Duration 4 wks-12/19/23 Exterior Work Helper Goal (LTG) Improve L shoulder strength to relieve soreness with holding a weight over head 5-10#. LTG Duration 10 wks-01/30/24 One Impairment Pt lacks appropriate self care HEP. Short Term Goal (STG) Pt will be educated in self care pain management and best positioning for nighttime sleep to minimize pain. STG Duration 2 wks-12/05/23 (11/25/23: MET GOAL) Exterior Work Helper Goal (LTG) Pt will be independent in an effective self care HEP of ROM & strengthening ex's of the L shoulder muscles and scapular stabilizers, to improve but not make sore his L lateral shoulder. 11/25/23: HEP: L UT stretch, scap retract/depression, neck elongation in proper sit posture, sup and sidelie L shdr ER/IR. LTG Duration 10 wks-01/30/24 progressed 11/25/23 Assessment Summary Assessment 158 deg AROM left shoulder flexion end of session with reports of pain lowering the UE persists. Patient advised to have shave back of neck/shoulder if he would like trial of kinesiotaping. Physical Therapy Plan Frequency and Duration Frequency of Treatment 2x/Week Duration of treatment (weeks) 10 Plan of Care Start Date 11/21/23 Plan of Care End Date 01/30/24 Next Visit Focus/Plan Next Note Type Treatment Note Next Visit Plan NEXT: Assess milton to mini band supine possibly progress to standing. Progress to level 2 band for rows and high row when tolerated. Assess tolerance to HEP. If patient has shaved next session K- tape for inflammation and pain reduction.
--- NOTE | 2023-12-05 15:27 | PT.OTN ---
Current Diagnoses Other shoulder lesions, left shoulder (12/05/23) Physical Therapy Treatment Note PT-OP-A Visit Information Start: 11/14/23 19:14 Freq: Status: Active Protocol: Document 12/05/23 10:37 LRN (Rec: 12/05/23 11:17 LRN [id number]) Out-Patient Physical Therapy Visit Information Visit Information Visit Type Treatment Note Visit Start Time 10:37 Visit Stop Time 11:17 Visit Number 5 Evaluation Information Evaluation Date 11/21/23 Precautions Precautions arthritis, thyroid disorder PT-OP-B Current Condition Start: 11/14/23 19:14 Freq: Status: Active Protocol: Document 11/21/23 10:32 LRN (Rec: 11/21/23 11:17 LRN [id number]) Current Condition History of Current Condition Onset Date 4-6 months ago Current Complaints L shoulder constant pain History of Current Condition L shoulder had been stiffer than right, then 2 months ago (in Dec), slipped on icy steps and landed on a step onto his L shoulder. He noticed with lifting his L arm (thumb pointing down), he was not able to lower his arm without it dropping. He is now able to perform the movement. States the muscle on the top of his shoulder (pointing to Supraspinatus) is the muscle affected. He had been trying to put up sheet rock and found it really hurt his L shoulder . He has constant soreness and if sleeps on L side, is bothered by pain. Pt is normally a L side sleeper. States he is improving and the shoulder is still sore. Pt is R handed. Prior Treatments and Tests X-ray (10/27/23): No fractures or dislocations. Report states: High-riding humeral head can be seen with rotator cuff injury. Treatment Goals Patient/Caregiver Goals Pt goal: Improve L shoulder strength to relieve soreness. Learn ex's to improve but not make sore. Personal Factors Other Personal Factors That May Effect Arthrits. Therapy/Recovery PT-OP-C Subjective Start: 11/14/23 19:14 Freq: Status: Active Protocol: Document 12/05/23 10:37 LRN (Rec: 12/05/23 11:17 LRN [id number]) OP-PT Subjective Patient Comments Patient Comments Has veen using more icen to shoulder. Seems like he can sleepp on L shoulder a little longer before it starts hurting. PT-OP-E Functional Tests Start: 11/14/23 19:14 Freq: Status: Active Protocol: Document 11/21/23 10:32 LRN (Rec: 11/21/23 11:17 LRN [id number]) Functional Tests Apley's Scratch Test Action 1- Left Crest of spine Action 1- Right Crest of spine Action 2- Left T3 Action 2- Right T4 Action 3- Left L2 Action 3- Right T8 PT-OP-H Neuro Start: 11/14/23 19:14 Freq: Status: Active Protocol: Document 11/21/23 10:32 LRN (Rec: 11/21/23 11:17 LRN [id number]) Sensation Evaluation Gross Sensation Gross Sensation WNL PT-OP-J Posture/Palpation/Skin Start: 11/14/23 19:14 Freq: Status: Active Protocol: Document 11/21/23 10:32 LRN (Rec: 11/21/23 11:17 LRN [id number]) Posture Evaluation Position Standing Head/C-Spine Posture Forward Head Shoulder Posture (L) Rounded,(L) Forward,(L) Elevated Arm Posture (L) Internally Rotated,(R) Internally Rotated Comments Posture Comments Dowagers hump, straightened upper T/S curvature. Palpation Assessment Location L shoulder Palpation Location Between middle and posterior deltoid muscle. Palpation Findings Tenderness PT-OP-K Range of Motion Start: 11/14/23 19:14 Freq: Status: Active Protocol: Document 11/21/23 10:32 LRN (Rec: 11/21/23 11:17 LRN [id number]) Cervical Spine Range of Motion Cervical Spine Active Degrees Testing Position Sitting Extension 37 Rotation Left 70 Rotation Right 70 Lateral Flexion Left 26 Lateral Flexion Right 20 ROM Limitations Soft Tissue Tightness Shoulder Goniometric Range of Motion Shoulder Right Active Testing Position Sitting Flexion 155 Extension 65 Abduction 180 Internal Rotation Behind Back (text) T8 Left Active Testing Position Sitting Flexion 157 Extension 38 Abduction 110 Internal Rotation Behind Back (text) L2 Comments Pt has L shoulder pain with returning to resting. Pt able to do 180 deg's AB in scapular plane. Elbow/Forearm Range of Motion Elbow/Forearm Right Active Elbow/Forearm ROM WFL Yes ROM Testing Position Sitting Left Active Elbow/Forearm ROM WFL Yes ROM Testing Position Sitting PT-OP-L Special Tests Start: 11/14/23 19:14 Freq: Status: Active Protocol: Document 11/21/23 10:32 LRN (Rec: 11/21/23 11:17 LRN [id number]) Special Tests Shoulder Special Tests Passive ER Rotator Cuff Test Results + Comments ROM in neutral before pain increase. IR/Horizontal ADD Impingement Test Results + Elevation Impingement Test Results + Comments Pain only at end-range. PT-OP-M Strength Start: 11/14/23 19:14 Freq: Status: Active Protocol: Document 11/25/23 10:36 LRN (Rec: 11/25/23 11:19 LRN [id number]) Cervical Spine Strength Cervical Spine Manual Muscle Testing Comments Strength is 5/5 in all areas. PT-OP-Q Treatments Start: 11/14/23 19:14 Freq: Status: Active Protocol: Document 12/05/23 10:37 LRN (Rec: 12/05/23 11:17 LRN [id number]) Therapeutic Exercises Supine Exercises Scap pinches on 1/2 roll Supine Exercise Name Scapular retract/depression Side bilateral Reps/Minutes 5SH x 10 Lat Pull down Supine Exercise Name Lat Pull Down Side bilateral Equipment Used L1 TB Reps/Minutes 10x w/stretch into max flex supine shoulder flexion Supine Exercise Name AROM Side bilateral Reps/Minutes 6' -10 sec hold Comments reports increased soreness with raising and lowering mini band supine Supine Exercise Name ER with band with flexion Side bilateral Resistance level one light blue band Reps/Minutes X10 Comments no pain pec stretch on 1/2 soft foam roller Supine Exercise Name to use rolled blanket or yoga mat at home Side bilateral Equipment Used 1/2 soft foam roller Reps/Minutes 3 min Comments VC for UE position and breathing from diaphagm L shldr IR Supine Exercise Name UE at 60 deg abduction Side left Reps/Minutes X12 Comments focus and self tactile cues to avoid ant translat of humerus Sidelying Exercises L shdr ER Sidelying Exercise Name left shoulder AROM ER Side left Equipment Used 2# Reps/Minutes 10x 3 Sitting Exercises Mini band sitting Sitting Exercise Name Flex with arms in ER neutral Side bilateral Reps/Minutes 10x 3 Comments No pain Standing Exercises Shoulder IR Side left Equipment Used L3 Reps/Minutes 10x Shoulder ER Side left Equipment Used L3 Reps/Minutes 10x isometric reactive shoulder IR and ER Side bilateral Equipment Used level one light blue band Reps/Minutes X10 Comments Verbal cues monitored for pain high row Standing Exercise Name Scapular retraction/depression Side bilateral Equipment Used Lev 3 Reps/Minutes 10x Comments V & Phys cues to move scap in retract/depression row Standing Exercise Name Scap retract/depression Side bilateral Equipment Used Lev 3 Reps/Minutes 3X10 Comments No pain PT-OP-T Assessment and Plan Start: 11/14/23 19:14 Freq: Status: Active Protocol: Document 12/05/23 10:37 LRN (Rec: 12/05/23 11:17 LRN [id number]) Physical Therapy Assessment Goals Three Impairment Poor posturing of L shoulder ( foward rounded and elevated) Impairment UE Quickdash score 9.09 (1-19% impaired, score 1-19). Reaching behind neck: L T3, R T4 Reaching behind back: L L2, R T8 Retirement Goal (LTG) Improve posturing of the L shoulder with improved functional L shoulder AROM LTG Duration 10 wks-01/30/24 Two Impairment Decreased L shoulder strength Impairment L shoulder strength: Flex, ER , horiz AD is 3+/5, otherwise is 5/5. Short Term Goal (STG) Improve L shoulder strength to relieve soreness with reaching overhead. STG Duration 4 wks-12/19/23 [employer] Goal (LTG) Improve L shoulder strength to relieve soreness with holding a weight over head 5-10#. LTG Duration 10 wks-01/30/24 One Impairment Pt lacks appropriate self care HEP. Short Term Goal (STG) Pt will be educated in self care pain management and best positioning for nighttime sleep to minimize pain. STG Duration 2 wks-12/05/23 (11/25/23: MET GOAL) Retirement Goal (LTG) Pt will be independent in an effective self care HEP of ROM & strengthening ex's of the L shoulder muscles and scapular stabilizers, to improve but not make sore his L lateral shoulder. 11/25/23: HEP: L UT stretch, scap retract/depression, neck elongation in proper sit posture, sup and sidelie L shdr ER/IR. LTG Duration 10 wks-01/30/24 progressed 11/25/23 Assessment Summary Assessment 68 yo male with signs of L shoulder impingement, probably due to inflammation of RC tendons and poor scapular positioning/stabilization. No pain complaints with strengthening ex's of RC. Poor ability to depress scapula. Scap stab & RC strengthening needed. Pt not motivitated to do K-tape. Physical Therapy Plan Frequency and Duration Frequency of Treatment 2x/Week Duration of treatment (weeks) 10 Plan of Care Start Date 11/21/23 Plan of Care End Date 01/30/24 Next Visit Focus/Plan Next Note Type Treatment Note Next Visit Plan NEXT: mini band progression to standing. Cont supine lat pull down and try standing if able to control scap for depression. Progress resistance for rows and high row when tolerated, focus on L scap stab. Assess tolerance to HEP. Ther EX: Ecc strengthening and ex for getting L shoulder ready for golfing. If patient shaves try K-tape for inflammation and pain reduction.
--- NOTE | 2023-12-08 11:06 | PT.OTN ---
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 He noticed with lifting his L arm (thumb pointing down), he was not able to lower his arm without it dropping. He is now able to perform the movement. States the muscle on the top of his shoulder (pointing to Supraspinatus) is the muscle affected. He had been trying to put up sheet rock and found it really hurt his L shoulder . He has constant soreness and if sleeps on L side, is bothered by pain. Pt is normally a L side sleeper. States he is improving and the shoulder is still sore. Pt is R handed. Prior Treatments and Tests X-ray (10/27/23): No fractures or dislocations. Report states: High-riding humeral head can be seen with rotator cuff injury. Treatment Goals Patient/Caregiver Goals Pt goal: Improve L shoulder strength to relieve soreness. Learn ex's to improve but not make sore. Personal Factors Other Personal Factors That May Effect Arthrits. Therapy/Recovery PT-OP-C Subjective Start: 11/14/23 19:14 Freq: Status: Active Protocol: Document 12/08/23 08:09 AB (Rec: 12/08/23 11:06 AB [id number]) OP-PT Subjective Patient Comments Patient Comments Patient reports the shoulder soreness is the same, but is doing more with it and has more range. Patient reports soreness lateral shoulder, and is icing 3X A day. PT-OP-E Functional Tests Start: 11/14/23 19:14 Freq: Status: Active Protocol: Document 11/21/23 10:32 LRN (Rec: 11/21/23 11:17 LRN [id number]) Functional Tests Apley's Scratch Test Action 1- Left Crest of spine Action 1- Right Crest of spine Action 2- Left T3 Action 2- Right T4 Action 3- Left L2 Action 3- Right T8 PT-OP-H Neuro Start: 11/14/23 19:14 Freq: Status: Active Protocol: Document 11/21/23 10:32 LRN (Rec: 11/21/23 11:17 LRN [id number]) Sensation Evaluation Gross Sensation Gross Sensation WNL PT-OP-J Posture/Palpation/Skin Start: 11/14/23 19:14 Freq: Status: Active Protocol: Document 11/21/23 10:32 LRN (Rec: 11/21/23 11:17 LRN [id number]) Posture Evaluation Position Standing Head/C-Spine Posture Forward Head Shoulder Posture (L) Rounded,(L) Forward,(L) Elevated Arm Posture (L) Internally Rotated,(R) Internally Rotated Comments Posture Comments Dowagers hump, straightened upper T/S curvature. Palpation Assessment Location L shoulder Palpation Location Between middle and posterior deltoid muscle. Palpation Findings Tenderness PT-OP-K Range of Motion Start: 11/14/23 19:14 Freq: Status: Active Protocol: Document 11/21/23 10:32 LRN (Rec: 11/21/23 11:17 LRN [id number]) Cervical Spine Range of Motion Cervical Spine Active Degrees Testing Position Sitting Extension 37 Rotation Left 70 Rotation Right 70 Lateral Flexion Left 26 Lateral Flexion Right 20 ROM Limitations Soft Tissue Tightness Shoulder Goniometric Range of Motion Shoulder Right Active Testing Position Sitting Flexion 155 Extension 65 Abduction 180 Internal Rotation Behind Back (text) T8 Left Active Testing Position Sitting Flexion 157 Extension 38 Abduction 110 Internal Rotation Behind Back (text) L2 Comments Pt has L shoulder pain with returning to resting. Pt able to do 180 deg's AB in scapular plane. Elbow/Forearm Range of Motion Elbow/Forearm Right Active Elbow/Forearm ROM WFL Yes ROM Testing Position Sitting Left Active Elbow/Forearm ROM WFL Yes ROM Testing Position Sitting PT-OP-L Special Tests Start: 11/14/23 19:14 Freq: Status: Active Protocol: Document 11/21/23 10:32 LRN (Rec: 11/21/23 11:17 LRN [id number]) Special Tests Shoulder Special Tests Passive ER Rotator Cuff Test Results + Comments ROM in neutral before pain increase. IR/Horizontal ADD Impingement Test Results + Elevation Impingement Test Results + Comments Pain only at end-range. PT-OP-M Strength Start: 11/14/23 19:14 Freq: Status: Active Protocol: Document 11/25/23 10:36 LRN (Rec: 11/25/23 11:19 LRN [id number]) Cervical Spine Strength Cervical Spine Manual Muscle Testing Comments Strength is 5/5 in all areas. PT-OP-Q Treatments Start: 11/14/23 19:14 Freq: Status: Active Protocol: Document 12/08/23 08:09 AB (Rec: 12/08/23 11:06 AB [id number]) Therapeutic Exercises Supine Exercises alternating shoulder flexion on foam roller. Side bilateral Equipment Used soft foam roller Reps/Minutes X10 Comments monitored for pain pec stretch on 1/2 soft foam roller Supine Exercise Name to use rolled blanket or yoga mat at home Side bilateral Equipment Used 1/2 soft foam roller Reps/Minutes 3 min Sidelying Exercises sidelying shoulder abduction Side left Reps/Minutes X10 Comments Verbal cues for thumb up L shdr ER Sidelying Exercise Name left shoulder AROM ER Side left Reps/Minutes 10 Comments prior to sidelying ER AROM Standing Exercises mini band Standing Exercise Name shoulder ER with band with flexion Side bilateral Resistance single thickness level one band Reps/Minutes X10 Comments monitored for pain high row Standing Exercise Name Scapular retraction/depression Side bilateral Resistance level on band Reps/Minutes X10 X2 and X 15 Comments high row X 15 and scapular depression 2X 10 tactile and verbal cues Manual Therapy Treatment Soft Tissue Mobilization pec, post cuff, periscapular, infra and supra spinatus Body Location left shoulder also sustained pressure to UT Mobilization Type Cross-Friction,Rolling, Sustained Pressure,Other Intensity/Depth Moderate Body Position Sitting Comments deep for left UT Joint Mobilizations scapular Joint left scapula Direction depression and adduction Grade IV Body Position Sidelying Reps/Duration 15 each Comments monitored for pain left GH Direction ap, inf Grade III Body Position Supine Reps/Duration 10 Comments monitored for pain Self-Care/Home Management Treatment Activities Self-Care/Home Management Activities progressed mini band to standing for HEP, also added, alternating UE flexion on foam roller, sidelying ER arom and abduction PT-OP-T Assessment and Plan Start: 11/14/23 19:14 Freq: Status: Active Protocol: Document 12/08/23 08:09 AB (Rec: 12/08/23 11:06 AB [id number]) Physical Therapy Assessment Goals Three Impairment Poor posturing of L shoulder ( foward rounded and elevated) Impairment UE Quickdash score 9.09 (1-19% impaired, score 1-19). 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 Short Term Goal (STG) Improve L shoulder strength to relieve soreness with reaching overhead. 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 LTG Duration 10 wks-01/30/24 One Impairment Pt lacks appropriate self care HEP. Short Term Goal (STG) Pt will be educated in self care pain management and best positioning for nighttime sleep to minimize pain. STG Duration 2 wks-12/05/23 (11/25/23: MET GOAL) Briefcase [employer]er Goal (LTG) Pt will be independent in an effective self care HEP of ROM & strengthening ex's of the L shoulder muscles and scapular stabilizers, to improve but not make sore his L lateral shoulder. 11/25/23: HEP: L UT stretch, scap retract/depression, neck elongation in proper sit posture, sup and sidelie L shdr ER/IR. LTG Duration 10 wks-01/30/24 progressed 11/25/23 Assessment Summary Assessment AROM left shoulder flexion 152 deg start of session to 157 deg end of session. Increased difficulty with scapular depression exercises. Good return demonstration for all other exercises. Physical Therapy Plan Frequency and Duration Frequency of Treatment 2x/Week Duration of treatment (weeks) 10 Plan of Care Start Date 11/21/23 Plan of Care End Date 01/30/24 Next Visit Focus/Plan Next Note Type Treatment Note Next Visit Plan NEXT: Cont supine lat pull down and try standing if able to control scap for depression . Progress resistance for rows and high row when tolerated, trial of push up plus, focus on L scap stab. Assess tolerance to HEP. Ther EX: Ecc strengthening and ex for getting L shoulder ready for golfing/[employer] [employer] If patient shaves try K-tape for inflammation and pain reduction.
--- NOTE | 2023-12-10 12:19 | PT.OTN ---
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 He noticed with lifting his L arm (thumb pointing down), he was not able to lower his arm without it dropping. He is now able to perform the movement. States the muscle on the top of his shoulder (pointing to Supraspinatus) is the muscle affected. He had been trying to put up sheet rock and found it really hurt his L shoulder . He has constant soreness and if sleeps on L side, is bothered by pain. Pt is normally a L side sleeper. States he is improving and the shoulder is still sore. Pt is R handed. Prior Treatments and Tests X-ray (10/27/23): No fractures or dislocations. Report states: High-riding humeral head can be seen with rotator cuff injury. Treatment Goals Patient/Caregiver Goals Pt goal: Improve L shoulder strength to relieve soreness. Learn ex's to improve but not make sore. Personal Factors Other Personal Factors That May Effect Arthrits. Therapy/Recovery PT-OP-C Subjective Start: 11/14/23 19:14 Freq: Status: Active Protocol: Document 12/10/23 08:07 AB (Rec: 12/10/23 12:18 AB [id number]) OP-PT Subjective Patient Comments Patient Comments Patient reports the shoulder is the same, no difficulty with new exercises. PT-OP-E Functional Tests Start: 11/14/23 19:14 Freq: Status: Active Protocol: Document 11/21/23 10:32 LRN (Rec: 11/21/23 11:17 LRN [id number]) Functional Tests Apley's Scratch Test Action 1- Left Crest of spine Action 1- Right Crest of spine Action 2- Left T3 Action 2- Right T4 Action 3- Left L2 Action 3- Right T8 PT-OP-H Neuro Start: 11/14/23 19:14 Freq: Status: Active Protocol: Document 11/21/23 10:32 LRN (Rec: 11/21/23 11:17 LRN [id number]) Sensation Evaluation Gross Sensation Gross Sensation WNL PT-OP-J Posture/Palpation/Skin Start: 11/14/23 19:14 Freq: Status: Active Protocol: Document 11/21/23 10:32 LRN (Rec: 11/21/23 11:17 LRN [id number]) Posture Evaluation Position Standing Head/C-Spine Posture Forward Head Shoulder Posture (L) Rounded,(L) Forward,(L) Elevated Arm Posture (L) Internally Rotated,(R) Internally Rotated Comments Posture Comments Dowagers hump, straightened upper T/S curvature. Palpation Assessment Location L shoulder Palpation Location Between middle and posterior deltoid muscle. Palpation Findings Tenderness PT-OP-K Range of Motion Start: 11/14/23 19:14 Freq: Status: Active Protocol: Document 11/21/23 10:32 LRN (Rec: 11/21/23 11:17 LRN [id number]) Cervical Spine Range of Motion Cervical Spine Active Degrees Testing Position Sitting Extension 37 Rotation Left 70 Rotation Right 70 Lateral Flexion Left 26 Lateral Flexion Right 20 ROM Limitations Soft Tissue Tightness Shoulder Goniometric Range of Motion Shoulder Right Active Testing Position Sitting Flexion 155 Extension 65 Abduction 180 Internal Rotation Behind Back (text) T8 Left Active Testing Position Sitting Flexion 157 Extension 38 Abduction 110 Internal Rotation Behind Back (text) L2 Comments Pt has L shoulder pain with returning to resting. Pt able to do 180 deg's AB in scapular plane. Elbow/Forearm Range of Motion Elbow/Forearm Right Active Elbow/Forearm ROM WFL Yes ROM Testing Position Sitting Left Active Elbow/Forearm ROM WFL Yes ROM Testing Position Sitting PT-OP-L Special Tests Start: 11/14/23 19:14 Freq: Status: Active Protocol: Document 11/21/23 10:32 LRN (Rec: 11/21/23 11:17 LRN [id number]) Special Tests Shoulder Special Tests Passive ER Rotator Cuff Test Results + Comments ROM in neutral before pain increase. IR/Horizontal ADD Impingement Test Results + Elevation Impingement Test Results + Comments Pain only at end-range. PT-OP-M Strength Start: 11/14/23 19:14 Freq: Status: Active Protocol: Document 11/25/23 10:36 LRN (Rec: 11/25/23 11:19 LRN [id number]) Cervical Spine Strength Cervical Spine Manual Muscle Testing Comments Strength is 5/5 in all areas. PT-OP-Q Treatments Start: 11/14/23 19:14 Freq: Status: Active Protocol: Document 12/10/23 08:07 AB (Rec: 12/10/23 12:18 AB [id number]) Therapeutic Exercises Sidelying Exercises open book Side bilateral Reps/Minutes X5 each side holding for 5 breaths Comments verbal and tactile cues Standing Exercises statue of liberty Side left Resistance yellow therabar Reps/Minutes 30 sec wall push up plus Side bilateral Reps/Minutes 2X10 Comments verbal and visual cues high row Standing Exercise Name Scapular retraction/depression Side bilateral Resistance level 1 band Reps/Minutes X10 depression, 3X10 high Comments high row X 15 and scapular depression 2X 10 tactile and verbal cues row Standing Exercise Name Scap retract/depression Side bilateral Equipment Used Lev 3 Reps/Minutes 3X10 Comments No pain Manual Therapy Treatment Soft Tissue Mobilization pec, post cuff, periscapular, infra and supra spinatus Body Location left shoulder also sustained pressure to UT Mobilization Type Cross-Friction,Rolling, Sustained Pressure,Other Intensity/Depth Moderate Body Position Sitting Comments deep for left UT Joint Mobilizations scapular Joint left scapula Direction depression and adduction Grade IV Body Position Sidelying Reps/Duration 15 each Comments monitored for pain left GH Direction ap, inf Grade III Body Position Supine Reps/Duration 10 Comments monitored for pain Taping kinesio taping Body Location left shoulder Treatment Focus for GH positioning/posture and to unload UT/levator scap Type of Tape kinesiotape Skin Inspection WNL Comments Patient ed to remove immediately if skin irritation , 3-5 days if no irritation occurs. Self-Care/Home Management Treatment Activities Self-Care/Home Management Activities push up plus on wall to HEP and progressed to level 3 band for row and high row. PT-OP-T Assessment and Plan Start: 11/14/23 19:14 Freq: Status: Active Protocol: Document 12/10/23 08:07 AB (Rec: 12/10/23 12:18 AB [id number]) Physical Therapy Assessment Goals Three Impairment Poor posturing of L shoulder ( foward rounded and elevated) Impairment UE Quickdash score 9.09 (1-19% impaired, score 1-19). Reaching behind neck: L T3, R T4 Reaching behind back: L L2, R T8 Crepe Box Tender Goal (LTG) Improve posturing of the L shoulder with improved functional L shoulder AROM LTG Duration 10 wks-01/30/24 Two Impairment Decreased L shoulder strength Impairment L shoulder strength: Flex, ER , horiz AD is 3+/5, otherwise is 5/5. Short Term Goal (STG) Improve L shoulder strength to relieve soreness with reaching overhead. STG Duration 4 wks-12/19/23 [facility] Goal (LTG) Improve L shoulder strength to relieve soreness with holding a weight over head 5-10#. LTG Duration 10 wks-01/30/24 One Impairment Pt lacks appropriate self care HEP. Short Term Goal (STG) Pt will be educated in self care pain management and best positioning for nighttime sleep to minimize pain. STG Duration 2 wks-12/05/23 (11/25/23: MET GOAL) [facility] Goal (LTG) Pt will be independent in an effective self care HEP of ROM & strengthening ex's of the L shoulder muscles and scapular stabilizers, to improve but not make sore his L lateral shoulder. 11/25/23: HEP: L UT stretch, scap retract/depression, neck elongation in proper sit posture, sup and sidelie L shdr ER/IR. LTG Duration 10 wks-01/30/24 progressed 11/25/23 Assessment Summary Assessment AROM left shoulder flexion 155 deg start of session to 158 deg end of session. Good tolerance to progression of bands for lat and rows and for push up plus on wall. Physical Therapy Plan Frequency and Duration Frequency of Treatment 2x/Week Duration of treatment (weeks) 10 Plan of Care Start Date 11/21/23 Plan of Care End Date 01/30/24 Next Visit Focus/Plan Next Note Type Treatment Note Next Visit Plan NEXT: Progress resistance for rows and high row when tolerated, trial of push up plus to counter, focus on L scap stab. Overhead press with 1 lb. Ther EX: Ecc strengthening and ex for getting L shoulder ready for golfing/statue of liberty vs body blade. Assess milton to K- tape for inflammation and pain reduction.
--- NOTE | 2023-12-15 14:34 | PT.OTN ---
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 He noticed with lifting his L arm (thumb pointing down), he was not able to lower his arm without it dropping. He is now able to perform the movement. States the muscle on the top of his shoulder (pointing to Supraspinatus) is the muscle affected. He had been trying to put up sheet rock and found it really hurt his L shoulder . He has constant soreness and if sleeps on L side, is bothered by pain. Pt is normally a L side sleeper. States he is improving and the shoulder is still sore. Pt is R handed. Prior Treatments and Tests X-ray (10/27/23): No fractures or dislocations. Report states: High-riding humeral head can be seen with rotator cuff injury. Treatment Goals Patient/Caregiver Goals Pt goal: Improve L shoulder strength to relieve soreness. Learn ex's to improve but not make sore. Personal Factors Other Personal Factors That May Effect Arthrits. Therapy/Recovery PT-OP-C Subjective Start: 11/14/23 19:14 Freq: Status: Active Protocol: Document 12/15/23 08:08 AB (Rec: 12/15/23 09:22 AB [id number]) OP-PT Subjective Patient Comments Patient Comments Patient reports no change with shoulder, comments could have done better with exercises. ( was out of town visiting father with health problems ) PT-OP-E Functional Tests Start: 11/14/23 19:14 Freq: Status: Active Protocol: Document 11/21/23 10:32 LRN (Rec: 11/21/23 11:17 LRN [id number]) Functional Tests Apley's Scratch Test Action 1- Left Crest of spine Action 1- Right Crest of spine Action 2- Left T3 Action 2- Right T4 Action 3- Left L2 Action 3- Right T8 PT-OP-H Neuro Start: 11/14/23 19:14 Freq: Status: Active Protocol: Document 11/21/23 10:32 LRN (Rec: 11/21/23 11:17 LRN [id number]) Sensation Evaluation Gross Sensation Gross Sensation WNL PT-OP-J Posture/Palpation/Skin Start: 11/14/23 19:14 Freq: Status: Active Protocol: Document 11/21/23 10:32 LRN (Rec: 11/21/23 11:17 LRN [id number]) Posture Evaluation Position Standing Head/C-Spine Posture Forward Head Shoulder Posture (L) Rounded,(L) Forward,(L) Elevated Arm Posture (L) Internally Rotated,(R) Internally Rotated Comments Posture Comments Dowagers hump, straightened upper T/S curvature. Palpation Assessment Location L shoulder Palpation Location Between middle and posterior deltoid muscle. Palpation Findings Tenderness PT-OP-K Range of Motion Start: 11/14/23 19:14 Freq: Status: Active Protocol: Document 11/21/23 10:32 LRN (Rec: 11/21/23 11:17 LRN [id number]) Cervical Spine Range of Motion Cervical Spine Active Degrees Testing Position Sitting Extension 37 Rotation Left 70 Rotation Right 70 Lateral Flexion Left 26 Lateral Flexion Right 20 ROM Limitations Soft Tissue Tightness Shoulder Goniometric Range of Motion Shoulder Right Active Testing Position Sitting Flexion 155 Extension 65 Abduction 180 Internal Rotation Behind Back (text) T8 Left Active Testing Position Sitting Flexion 157 Extension 38 Abduction 110 Internal Rotation Behind Back (text) L2 Comments Pt has L shoulder pain with returning to resting. Pt able to do 180 deg's AB in scapular plane. Elbow/Forearm Range of Motion Elbow/Forearm Right Active Elbow/Forearm ROM WFL Yes ROM Testing Position Sitting Left Active Elbow/Forearm ROM WFL Yes ROM Testing Position Sitting PT-OP-L Special Tests Start: 11/14/23 19:14 Freq: Status: Active Protocol: Document 11/21/23 10:32 LRN (Rec: 11/21/23 11:17 LRN [id number]) Special Tests Shoulder Special Tests Passive ER Rotator Cuff Test Results + Comments ROM in neutral before pain increase. IR/Horizontal ADD Impingement Test Results + Elevation Impingement Test Results + Comments Pain only at end-range. PT-OP-M Strength Start: 11/14/23 19:14 Freq: Status: Active Protocol: Document 11/25/23 10:36 LRN (Rec: 11/25/23 11:19 LRN [id number]) Cervical Spine Strength Cervical Spine Manual Muscle Testing Comments Strength is 5/5 in all areas. PT-OP-Q Treatments Start: 11/14/23 19:14 Freq: Status: Active Protocol: Document 12/15/23 08:08 AB (Rec: 12/15/23 09:22 AB [id number]) Therapeutic Exercises Supine Exercises pec stretch on 1/2 soft foam roller Side bilateral Reps/Minutes 3 min Comments post manual therapy L shldr IR Supine Exercise Name UE at 60 deg abduction Side left Reps/Minutes X12 Comments focus and self tactile cues to avoid ant translat of humerus Standing Exercises overhead press Side bilateral Resistance 1lb Reps/Minutes X10 Comments verbal and visua cues scapular depression Resistance level one band Reps/Minutes X10 Comments visual cues statue of liberty Side left Resistance yellow therabar Reps/Minutes 60 sec wall push up plus Standing Exercise Name on counter this session Side bilateral Reps/Minutes 2X10 Comments verbal and visual cues mini band Standing Exercise Name shoulder ER with band with flexion Side bilateral Resistance single thickness level one band Reps/Minutes X10 Comments monitored for pain high row Standing Exercise Name high row Side bilateral Resistance level 4 band Equipment Used Lev 3 Reps/Minutes 2X10 Comments VC to keep elbows flexed row Standing Exercise Name Scap retract/depression Side bilateral Equipment Used Lev 4 Reps/Minutes 2X10 Comments No pain Manual Therapy Treatment Soft Tissue Mobilization pec, post cuff, periscapular, infra and supra spinatus Body Location left shoulder also sustained pressure to UT Mobilization Type Cross-Friction,Rolling,Other Intensity/Depth Moderate Body Position Hooklying Comments prior to scapular mobilization and exercise Joint Mobilizations scapular Joint left scapula Direction depression and adduction Grade IV Body Position Sidelying Reps/Duration 15 each Comments monitored for pain left GH Direction ap, inf Grade III Body Position Supine Reps/Duration 10 Comments monitored for pain Taping kinesio taping Body Location left shoulder Treatment Focus for GH positioning/posture and to unload UT/levator scap Type of Tape kinesiotape Skin Inspection WNL Comments Patient ed to remove immediately if skin irritation , 3-5 days if no irritation occurs. Self-Care/Home Management Treatment Activities Self-Care/Home Management Activities push up plus to counter, level 4 band for row and high row PT-OP-T Assessment and Plan Start: 11/14/23 19:14 Freq: Status: Active Protocol: Document 12/15/23 08:08 AB (Rec: 12/15/23 09:22 AB [id number]) Physical Therapy Assessment Goals Three Impairment Poor posturing of L shoulder ( foward rounded and elevated) Impairment UE Quickdash score 9.09 (1-19% impaired, score 1-19). Reaching behind neck: L T3, R T4 Reaching behind back: L L2, R T8 Custodial Goal (LTG) Improve posturing of the L shoulder with improved functional L shoulder AROM LTG Duration 10 wks-01/30/24 Two Impairment Decreased L shoulder strength Impairment L shoulder strength: Flex, ER , horiz AD is 3+/5, otherwise is 5/5. Short Term Goal (STG) Improve L shoulder strength to relieve soreness with reaching overhead. 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 LTG Duration 10 wks-01/30/24 One Impairment Pt lacks appropriate self care HEP. Short Term Goal (STG) Pt will be educated in self care pain management and best positioning for nighttime sleep to minimize pain. STG Duration 2 wks-12/05/23 (11/25/23: MET GOAL) Custodial Goal (LTG) Pt will be independent in an effective self care HEP of ROM & strengthening ex's of the L shoulder muscles and scapular stabilizers, to improve but not make sore his L lateral shoulder. 11/25/23: HEP: L UT stretch, scap retract/depression, neck elongation in proper sit posture, sup and sidelie L shdr ER/IR. LTG Duration 10 wks-01/30/24 progressed 11/25/23 Assessment Summary Assessment AROM left shoulder flexion 153 start of session, decreased AROM left shoulder flexion 146 deg end of session likely due to fatigue, patient reports no increased shoulder pain end of session. Ant translation of humerus with AROM shoulder IR left shoulder persists. Physical Therapy Plan Frequency and Duration Frequency of Treatment 2x/Week Duration of treatment (weeks) 10 Plan of Care Start Date 11/21/23 Plan of Care End Date 01/30/24 Therapeutic Interventions Therapeutic Interventions Home Exercise Program,Joint Mobilizations,Manual Therapy, Neuromuscular Re-education, Self-Care/Home Management,Soft Tissue Mobilization,Taping, Therapeutic Activities, Therapeutic Exercises Modalities Cold Pack/Ice Massage,Electric Stimulation,Hot Packs, Ultrasound Next Visit Focus/Plan Next Note Type Treatment Note Next Visit Plan NEXT: focus on L scap stab/ wall push up plus on ball in clinic Ther EX: Ecc strengthening and ex for getting L shoulder ready for golfing/statue of liberty with yellow therabar vs body blade with UE at side. Assess milton to K-tape for inflammation and pain reduction.
--- NOTE | 2023-12-18 15:14 | PT.OTN ---
Current Diagnoses Other shoulder lesions, left shoulder (12/18/23) Physical Therapy Treatment Note PT-OP-A Visit Information Start: 11/14/23 19:14 Freq: Status: Active Protocol: Document 12/18/23 12:59 LRN (Rec: 12/18/23 13:52 LRN [id number]) Out-Patient Physical Therapy Visit Information Visit Information Visit Type Treatment Note Visit Start Time 12:59 Visit Stop Time 13:51 Visit Number 9 Evaluation Information Evaluation Date 11/21/23 Precautions Precautions arthritis, thyroid disorder PT-OP-B Current Condition Start: 11/14/23 19:14 Freq: Status: Active Protocol: Document 11/21/23 10:32 LRN (Rec: 11/21/23 11:17 LRN [id number]) Current Condition History of Current Condition Onset Date 4-6 months ago Current Complaints L shoulder constant pain History of Current Condition L shoulder had been stiffer than right, then 2 months ago (in Dec), slipped on icy steps and landed on a step onto his L shoulder. He noticed with lifting his L arm (thumb pointing down), he was not able to lower his arm without it dropping. He is now able to perform the movement. States the muscle on the top of his shoulder (pointing to Supraspinatus) is the muscle affected. He had been trying to put up sheet rock and found it really hurt his L shoulder . He has constant soreness and if sleeps on L side, is bothered by pain. Pt is normally a L side sleeper. States he is improving and the shoulder is still sore. Pt is R handed. Prior Treatments and Tests X-ray (10/27/23): No fractures or dislocations. Report states: High-riding humeral head can be seen with rotator cuff injury. Treatment Goals Patient/Caregiver Goals Pt goal: Improve L shoulder strength to relieve soreness. Learn ex's to improve but not make sore. Personal Factors Other Personal Factors That May Effect Arthrits. Therapy/Recovery PT-OP-C Subjective Start: 11/14/23 19:14 Freq: Status: Active Protocol: Document 12/18/23 12:59 LRN (Rec: 12/18/23 13:52 LRN [id number]) OP-PT Subjective Patient Comments Patient Comments States he has more ROM, still sore. States he is 14% better . States he thinks the K-tape is supporting the shoulder. Has soreness with moving the L arm. Reports no pain at shoulder typically. PT-OP-E Functional Tests Start: 11/14/23 19:14 Freq: Status: Active Protocol: Document 11/21/23 10:32 LRN (Rec: 11/21/23 11:17 LRN [id number]) Functional Tests Apley's Scratch Test Action 1- Left Crest of spine Action 1- Right Crest of spine Action 2- Left T3 Action 2- Right T4 Action 3- Left L2 Action 3- Right T8 PT-OP-H Neuro Start: 11/14/23 19:14 Freq: Status: Active Protocol: Document 11/21/23 10:32 LRN (Rec: 11/21/23 11:17 LRN [id number]) Sensation Evaluation Gross Sensation Gross Sensation WNL PT-OP-J Posture/Palpation/Skin Start: 11/14/23 19:14 Freq: Status: Active Protocol: Document 11/21/23 10:32 LRN (Rec: 11/21/23 11:17 LRN [id number]) Posture Evaluation Position Standing Head/C-Spine Posture Forward Head Shoulder Posture (L) Rounded,(L) Forward,(L) Elevated Arm Posture (L) Internally Rotated,(R) Internally Rotated Comments Posture Comments Dowagers hump, straightened upper T/S curvature. Palpation Assessment Location L shoulder Palpation Location Between middle and posterior deltoid muscle. Palpation Findings Tenderness PT-OP-K Range of Motion Start: 11/14/23 19:14 Freq: Status: Active Protocol: Document 11/21/23 10:32 LRN (Rec: 11/21/23 11:17 LRN [id number]) Cervical Spine Range of Motion Cervical Spine Active Degrees Testing Position Sitting Extension 37 Rotation Left 70 Rotation Right 70 Lateral Flexion Left 26 Lateral Flexion Right 20 ROM Limitations Soft Tissue Tightness Shoulder Goniometric Range of Motion Shoulder Right Active Testing Position Sitting Flexion 155 Extension 65 Abduction 180 Internal Rotation Behind Back (text) T8 Left Active Testing Position Sitting Flexion 157 Extension 38 Abduction 110 Internal Rotation Behind Back (text) L2 Comments Pt has L shoulder pain with returning to resting. Pt able to do 180 deg's AB in scapular plane. Elbow/Forearm Range of Motion Elbow/Forearm Right Active Elbow/Forearm ROM WFL Yes ROM Testing Position Sitting Left Active Elbow/Forearm ROM WFL Yes ROM Testing Position Sitting PT-OP-L Special Tests Start: 11/14/23 19:14 Freq: Status: Active Protocol: Document 11/21/23 10:32 LRN (Rec: 11/21/23 11:17 LRN [id number]) Special Tests Shoulder Special Tests Passive ER Rotator Cuff Test Results + Comments ROM in neutral before pain increase. IR/Horizontal ADD Impingement Test Results + Elevation Impingement Test Results + Comments Pain only at end-range. PT-OP-M Strength Start: 11/14/23 19:14 Freq: Status: Active Protocol: Document 11/25/23 10:36 LRN (Rec: 11/25/23 11:19 LRN [id number]) Cervical Spine Strength Cervical Spine Manual Muscle Testing Comments Strength is 5/5 in all areas. PT-OP-Q Treatments Start: 11/14/23 19:14 Freq: Status: Active Protocol: Document 12/18/23 12:59 LRN (Rec: 12/18/23 13:52 LRN [id number]) Therapeutic Exercises Supine Exercises Scap Protraction Supine Exercise Name Reaching to ceiling>scap protract>scap retract> arms down Side bilateral Reps/Minutes 15x each @ 3#, 2#, 0# Comments Scap protraction Standing Exercises Scap downrot Standing Exercise Name Training of scap retract/ depression with active shoulder flex/AB/ER Side left Equipment Used With and w/o TB L3 Reps/Minutes 18' Comments Cuing scap into opp back pockets, pt able to get UT to relax. scapular depression Standing Exercise Name Active & ARROM Resistance level one band and w/o TB Reps/Minutes X10 Comments phys cues to relax UT's wall push up plus Standing Exercise Name Wall push up plus Reps/Minutes 15 x 2 Comments Phys & v cuing, keeping shdr hgts equal. Shoulder IR Side left Equipment Used L3 Reps/Minutes 15x 2 Shoulder ER Side left Equipment Used L3 Reps/Minutes 15x 2 high row Standing Exercise Name high row-much cuing needed to get scap to move infer/AD Side bilateral Resistance level 4 band Equipment Used Lev 3 Reps/Minutes 10' Comments VC to move scap inferior/add row Standing Exercise Name Scap retract/depression Side bilateral Equipment Used Lev 3 Reps/Minutes 2X10 Comments Cued scap into opp back posckets. Self-Care/Home Management Treatment Education Patient Education Safety Other Education Pt I/S in safe and proper removal of K-tape today. PT-OP-T Assessment and Plan Start: 11/14/23 19:14 Freq: Status: Active Protocol: Document 12/18/23 12:59 LRN (Rec: 12/18/23 13:52 LRN [id number]) Physical Therapy Assessment Goals Three Impairment Poor posturing of L shoulder ( foward rounded and elevated) Impairment UE Quickdash score 9.09 (1-19% impaired, score 1-19). Reaching behind neck: L T3, R T4 Reaching behind back: L L2, R T8 Long-Term Goal (LTG) Improve posturing of the L shoulder with improved functional L shoulder AROM LTG Duration 10 wks-01/30/24 Two Impairment Decreased L shoulder strength Impairment L shoulder strength: Flex, ER , horiz AD is 3+/5, otherwise is 5/5. Short Term Goal (STG) Improve L shoulder strength to relieve soreness with reaching overhead. STG Duration 4 wks-12/19/23 Long-Term Goal (LTG) Improve L shoulder strength to relieve soreness with holding a weight over head 5-10#. LTG Duration 10 wks-01/30/24 One Impairment Pt lacks appropriate self care HEP. Short Term Goal (STG) Pt will be educated in self care pain management and best positioning for nighttime sleep to minimize pain. STG Duration 2 wks-12/05/23 (11/25/23: MET GOAL) Long-Term Goal (LTG) Pt will be independent in an effective self care HEP of ROM & strengthening ex's of the L shoulder muscles and scapular stabilizers, to improve but not make sore his L lateral shoulder. 11/25/23: HEP: L UT stretch, scap retract/depression, neck elongation in proper sit posture, sup and sidelie L shdr ER/IR. LTG Duration 10 wks-01/30/24 progressed 11/25/23 Assessment Summary Assessment 68 yo male with signs of L shoulder impingement, probably due to inflammation of RC tendons and poor scapular positioning and stabilization. Pain with L shoulder ER. Poor L scapulohumeral rhythm causing L shoulder pain during eccentric arm lowering; therefore weak scapular stabilizers. Pt still wearing his K-tape and will remove later today; therefore will retape next visit. Physical Therapy Plan Frequency and Duration Frequency of Treatment 2x/Week Duration of treatment (weeks) 10 Plan of Care Start Date 11/21/23 Plan of Care End Date 01/30/24 Next Visit Focus/Plan Next Note Type Treatment Note Next Visit Plan NEXT: Reassess for PN. Assess Quickdash & (STG 2) L shoulder strength and soreness with reaching overhead. Retape (K-tape) L shoulder. Focus on L scap stab/ wall push up plus on ball in clinic . 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 Assess milton to K-tape for inflammation and pain reduction.
--- NOTE | 2023-12-30 16:07 | PT.OTN ---
Current Diagnoses Other shoulder lesions, left shoulder (12/30/23) Physical Therapy Treatment Note PT-OP-A Visit Information Start: 11/14/23 19:14 Freq: Status: Active Protocol: Document 12/30/23 11:22 LRN (Rec: 12/30/23 12:12 LRN [id number]) Out-Patient Physical Therapy Visit Information Visit Information Visit Type Progress Note Visit Start Time 11:24 Visit Stop Time 12:09 Visit Number 10 Evaluation Information Evaluation Date 11/21/23 Precautions Precautions arthritis, thyroid disorder PT-OP-B Current Condition Start: 11/14/23 19:14 Freq: Status: Active Protocol: Document 11/21/23 10:32 LRN (Rec: 11/21/23 11:17 LRN [id number]) Current Condition History of Current Condition Onset Date 4-6 months ago Current Complaints L shoulder constant pain History of Current Condition L shoulder had been stiffer than right, then 2 months ago (in Dec), slipped on icy steps and landed on a step onto his L shoulder. He noticed with lifting his L arm (thumb pointing down), he was not able to lower his arm without it dropping. He is now able to perform the movement. States the muscle on the top of his shoulder (pointing to Supraspinatus) is the muscle affected. He had been trying to put up sheet rock and found it really hurt his L shoulder . He has constant soreness and if sleeps on L side, is bothered by pain. Pt is normally a L side sleeper. States he is improving and the shoulder is still sore. Pt is R handed. Prior Treatments and Tests X-ray (10/27/23): No fractures or dislocations. Report states: High-riding humeral head can be seen with rotator cuff injury. Treatment Goals Patient/Caregiver Goals Pt goal: Improve L shoulder strength to relieve soreness. Learn ex's to improve but not make sore. Personal Factors Other Personal Factors That May Effect Arthrits. Therapy/Recovery PT-OP-C Subjective Start: 11/14/23 19:14 Freq: Status: Active Protocol: Document 12/30/23 11:22 LRN (Rec: 12/30/23 12:12 LRN [id number]) OP-PT Subjective Patient Comments Patient Comments Father on Friday. Thinks the shoulder is doing better. Would like to continue 2x/week. States the K-tape helped support the shoulder pulling it back and helped a little with soreness. Sleeping better on L side. Patient Questionnaires Quick Dash- Upper Extremity Quick Dash UE Score 4.5 Quick Dash UE Impairment 1 to 19% Impaired (Score 1-19) OP-PT Pain Assessment Pain Assessment Grid Paper Pain Assessment Grid Completed Yes Location L shoulder Pain Location Details Posterior & Anterior Deltoid Intensity 2 Scale Used Numeric (0 - 10) Description Aching Frequency Intermittent PT-OP-E Functional Tests Start: 11/14/23 19:14 Freq: Status: Active Protocol: Document 11/21/23 10:32 LRN (Rec: 11/21/23 11:17 LRN [id number]) Functional Tests Apley's Scratch Test Action 1- Left Crest of spine Action 1- Right Crest of spine Action 2- Left T3 Action 2- Right T4 Action 3- Left L2 Action 3- Right T8 PT-OP-H Neuro Start: 11/14/23 19:14 Freq: Status: Active Protocol: Document 11/21/23 10:32 LRN (Rec: 11/21/23 11:17 LRN [id number]) Sensation Evaluation Gross Sensation Gross Sensation WNL PT-OP-J Posture/Palpation/Skin Start: 11/14/23 19:14 Freq: Status: Active Protocol: Document 11/21/23 10:32 LRN (Rec: 11/21/23 11:17 LRN [id number]) Posture Evaluation Position Standing Head/C-Spine Posture Forward Head Shoulder Posture (L) Rounded,(L) Forward,(L) Elevated Arm Posture (L) Internally Rotated,(R) Internally Rotated Comments Posture Comments Dowagers hump, straightened upper T/S curvature. Palpation Assessment Location L shoulder Palpation Location Between middle and posterior deltoid muscle. Palpation Findings Tenderness PT-OP-K Range of Motion Start: 11/14/23 19:14 Freq: Status: Active Protocol: Document 12/30/23 11:22 LRN (Rec: 12/30/23 12:12 LRN [id number]) Shoulder Goniometric Range of Motion Shoulder Right Active Testing Position Sitting Flexion 180 Extension 42 Abduction 180 Left Active Testing Position Sitting Flexion 180 Extension 42 Abduction 180 PT-OP-L Special Tests Start: 11/14/23 19:14 Freq: Status: Active Protocol: Document 11/21/23 10:32 LRN (Rec: 11/21/23 11:17 LRN [id number]) Special Tests Shoulder Special Tests Passive ER Rotator Cuff Test Results + Comments ROM in neutral before pain increase. IR/Horizontal ADD Impingement Test Results + Elevation Impingement Test Results + Comments Pain only at end-range. PT-OP-M Strength Start: 11/14/23 19:14 Freq: Status: Active Protocol: Document 12/30/23 11:22 LRN (Rec: 12/30/23 12:12 LRN [id number]) Shoulder Strength Shoulder Manual Muscle Testing Right Comments Strength is 5/5. Left External Rotation 3 Fair Comments Strength is 5/5 except as indicated above. PT-OP-Q Treatments Start: 11/14/23 19:14 Freq: Status: Active Protocol: Document 12/30/23 11:22 LRN (Rec: 12/30/23 12:12 LRN [id number]) Therapeutic Exercises Supine Exercises L shdr ER/IR Supine Exercise Name ER/IR at 45 and 90 deg's AB Reps/Minutes 15x 2 each Manual Therapy Treatment Manual Techniques MWM: L shdr ER/IR Type MWM: L shoulder ER w/scap retract/depress, IR w/scap protract Body Location L Scapula Body Position Supine Reps/Duration 8' MWM: L shdr flex Type MWM: L shdr flex with scapular cuing for depression/retract Body Location L shoulder Body Position Supine Reps/Duration 10' Comments Pt has soreness at ~120 deg's flex. Self-Care/Home Management Treatment Education Other Education Discussed results of re- assessment, POC and goals. Pt agreeable to continue PT until further MD assessment is determined. Discussed he might have to cancel some appts due to father's in [place], otherwise would be able to attend 2x/week. Activities Self-Care/Home Management Activities I/S pt in L shoulder IR stretch w/towel and strengthening of ER with muscle work out discomfort, but not pain at L shoulder. PT-OP-T Assessment and Plan Start: 11/14/23 19:14 Freq: Status: Active Protocol: Document 12/30/23 11:22 LRN (Rec: 12/30/23 12:12 LRN [id number]) Physical Therapy Assessment Rehab Potential Rehabilitation Potential Good Evaluation Complexity Number of Personal Factors/Comorbidities 1-2 Number of Body Systems Impaired 4 or More Clinical Presentation at Evaluation Evolving Impairments Impairments Pain,Posture,ROM,Soft Tissue Mobility,Strength Goals Three Impairment Poor posturing of L shoulder ( foward rounded and elevated) Impairment UE Quickdash score 9.09 (1-19% impaired, score 1-19). Reaching behind neck: L T3, R T4 Reaching behind back: L L2, R T8 Boarding House Manager Goal (LTG) Improve posturing of the L shoulder with improved functional L shoulder AROM. 12/30/23: Reaching behind neck: L T3, R T3 Reaching behind back: L L1, R T11 LTG Duration 10 wks-01/30/24 Two Impairment Decreased L shoulder strength Impairment L shoulder strength: Flex, ER , horiz AD is 3+/5, otherwise is 5/5. Short Term Goal (STG) Improve L shoulder strength to relieve soreness with reaching overhead. 12/30/23: Reaching hands overhead without soreness. STG Duration 4 wks-12/19/23 (12/30/23: MET GOAL) Boarding House Manager Goal (LTG) Improve L shoulder strength to relieve soreness with holding a weight over head 5-10#. 12/30/23: ABle to lift overhead 5# or less without soreness, a little discomfort with 5# lift. LTG Duration 10 wks-01/30/24 progressed 12/30/23 One Impairment Pt lacks appropriate self care HEP. Short Term Goal (STG) Pt will be educated in self care pain management and best positioning for nighttime sleep to minimize pain. STG Duration 2 wks-12/05/23 (11/25/23: MET GOAL) Intermediate Goal (LTG) Pt will be independent in an effective self care HEP of ROM & strengthening ex's of the L shoulder muscles and scapular stabilizers, to improve but not make sore his L lateral shoulder. 11/25/23: HEP: L UT stretch, scap retract/depression, neck elongation in proper sit posture, sup and sidelie L shdr ER/IR. LTG Duration 10 wks-01/30/24 progressed 11/25/23 Assessment Summary Assessment Pt is a 68 yo male with signs of L shoulder impingement and poor L scapulohumeral rhythm, possibly due soft tissue dysfunction, capsular or rotator cuff in nature. He probably has inflammation of RC tendons due to impingement. He has L shoulder pain with eccentric arm lowering, weakness of L ER, and L IR is restricted in motion. Pain with AB is ~ 90 to 180 deg's, no pain c/o on return. The pt found K-taping of L shoulder GH for positioning/ posture and to unload UT/ levator scap helpful. The pt has made significant improvement in L shoulder strength and ROM except in areas previously described. Funtion has improved with UEQuickdash score now 4.5 (was 9). The pt recently lost his father, but he would like to continue therapy if further improvement can be made. I would recommend further testing to assess for soft tissue injury, and continuation of therapy to further improve pt's functional ability (lifting wgt overhead and reaching behind his back) and working towards achieving his above stated goals. Physical Therapy Plan Frequency and Duration Frequency of Treatment 2x/Week Duration of treatment (weeks) 10 Plan of Care Start Date 11/21/23 Plan of Care End Date 01/30/24 Therapeutic Interventions Therapeutic Interventions Home Exercise Program,Joint Mobilizations,Manual Therapy, Neuromuscular Re-education, Self-Care/Home Management,Soft Tissue Mobilization,Taping, Therapeutic Activities, Therapeutic Exercises Modalities Cold Pack/Ice Massage Next Visit Focus/Plan Next Note Type Treatment Note Next Visit Plan Retape (K-tape) L shoulder. Focus on L scap stab/ wall push up plus on ball in clinic . 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 Assess milton to K-tape for inflammation and pain reduction.
--- NOTE | 2024-01-02 10:09 | PT.OTN ---
Current Diagnoses Other shoulder lesions, left shoulder (01/02/24) Physical Therapy Treatment Note PT-OP-A Visit Information Start: 11/14/23 19:14 Freq: Status: Active Protocol: Document 01/02/24 08:05 AB (Rec: 01/02/24 10:09 AB [id number]) Out-Patient Physical Therapy Visit Information Visit Information Visit Type Treatment Note Visit Note Access Code [email or web address] Visit Start Time 09:02 Visit Stop Time 09:46 Visit Number 11 Number of NET TECHNICAL ARCHITECT Visits 1 Evaluation Information Evaluation Date 11/21/23 Precautions Precautions arthritis, thyroid disorder PT-OP-B Current Condition Start: 11/14/23 19:14 Freq: Status: Active Protocol: Document 11/21/23 10:32 LRN (Rec: 11/21/23 11:17 LRN [id number]) Current Condition History of Current Condition Onset Date 4-6 months ago Current Complaints L shoulder constant pain History of Current Condition L shoulder had been stiffer than right, then 2 months ago (in Dec), slipped on icy steps and landed on a step onto his L shoulder. He noticed with lifting his L arm (thumb pointing down), he was not able to lower his arm without it dropping. He is now able to perform the movement. States the muscle on the top of his shoulder (pointing to Supraspinatus) is the muscle affected. He had been trying to put up sheet rock and found it really hurt his L shoulder . He has constant soreness and if sleeps on L side, is bothered by pain. Pt is normally a L side sleeper. States he is improving and the shoulder is still sore. Pt is R handed. Prior Treatments and Tests X-ray (10/27/23): No fractures or dislocations. Report states: High-riding humeral head can be seen with rotator cuff injury. Treatment Goals Patient/Caregiver Goals Pt goal: Improve L shoulder strength to relieve soreness. Learn ex's to improve but not make sore. Personal Factors Other Personal Factors That May Effect Arthrits. Therapy/Recovery PT-OP-C Subjective Start: 11/14/23 19:14 Freq: Status: Active Protocol: Document 01/02/24 08:05 AB (Rec: 01/02/24 10:09 AB [id number]) OP-PT Subjective Patient Comments Patient Comments Regrading requesting imaging for shoulder patient reports MD told him he does not have notes from MD yet. AROM left shoulder 160 deg start of session. PT-OP-E Functional Tests Start: 11/14/23 19:14 Freq: Status: Active Protocol: Document 11/21/23 10:32 LRN (Rec: 11/21/23 11:17 LRN [id number]) Functional Tests Apley's Scratch Test Action 1- Left Crest of spine Action 1- Right Crest of spine Action 2- Left T3 Action 2- Right T4 Action 3- Left L2 Action 3- Right T8 PT-OP-H Neuro Start: 11/14/23 19:14 Freq: Status: Active Protocol: Document 11/21/23 10:32 LRN (Rec: 11/21/23 11:17 LRN [id number]) Sensation Evaluation Gross Sensation Gross Sensation WNL PT-OP-J Posture/Palpation/Skin Start: 11/14/23 19:14 Freq: Status: Active Protocol: Document 11/21/23 10:32 LRN (Rec: 11/21/23 11:17 LRN [id number]) Posture Evaluation Position Standing Head/C-Spine Posture Forward Head Shoulder Posture (L) Rounded,(L) Forward,(L) Elevated Arm Posture (L) Internally Rotated,(R) Internally Rotated Comments Posture Comments Dowagers hump, straightened upper T/S curvature. Palpation Assessment Location L shoulder Palpation Location Between middle and posterior deltoid muscle. Palpation Findings Tenderness PT-OP-K Range of Motion Start: 11/14/23 19:14 Freq: Status: Active Protocol: Document 12/30/23 11:22 LRN (Rec: 12/30/23 12:12 LRN [id number]) Shoulder Goniometric Range of Motion Shoulder Right Active Testing Position Sitting Flexion 180 Extension 42 Abduction 180 Left Active Testing Position Sitting Flexion 180 Extension 42 Abduction 180 PT-OP-L Special Tests Start: 11/14/23 19:14 Freq: Status: Active Protocol: Document 11/21/23 10:32 LRN (Rec: 11/21/23 11:17 LRN [id number]) Special Tests Shoulder Special Tests Passive ER Rotator Cuff Test Results + Comments ROM in neutral before pain increase. IR/Horizontal ADD Impingement Test Results + Elevation Impingement Test Results + Comments Pain only at end-range. PT-OP-M Strength Start: 11/14/23 19:14 Freq: Status: Active Protocol: Document 12/30/23 11:22 LRN (Rec: 12/30/23 12:12 LRN [id number]) Shoulder Strength Shoulder Manual Muscle Testing Right Comments Strength is 5/5. Left External Rotation 3 Fair Comments Strength is 5/5 except as indicated above. PT-OP-Q Treatments Start: 11/14/23 19:14 Freq: Status: Active Protocol: Document 01/02/24 08:05 AB (Rec: 01/02/24 10:09 AB [id number]) Therapeutic Exercises Supine Exercises alternating shoulder flexion on foam roller. Side bilateral Equipment Used soft foam roller Reps/Minutes X10 Comments monitored for pain Scap pinches on 1/2 roll Supine Exercise Name Scapular retract/depression Side bilateral Reps/Minutes X10 pec stretch on 1/2 soft foam roller Side bilateral Reps/Minutes 3 min Comments post manual therapy Sidelying Exercises sidelying shoulder abduction Side left Reps/Minutes X10 Comments Verbal cues for thumb up Standing Exercises statue of liberty Side left Resistance yellow therabar Reps/Minutes 60 sec wall push up plus Standing Exercise Name wall push up plus on ball Side bilateral Equipment Used ball Reps/Minutes X12 and X 1 Comments facilitation at scapula, stopped due to reports of popping sensation Shoulder IR Standing Exercise Name Isometric reactive this session Side left Equipment Used L4 band Reps/Minutes X1 and X 15 Comments reports popping sensation with AROM with band, none with isomet reactive Shoulder ER Side left Equipment Used Level 4 band Reps/Minutes X1 and X 15 Comments reports popping sensation with AROM with band, none with isomet reactive Manual Therapy Treatment Soft Tissue Mobilization pec, post cuff, periscapular, infra and supra spinatus Body Location left shoulder also sustained pressure to UT Mobilization Type Cross-Friction,Rolling,Other Intensity/Depth Moderate Body Position Hooklying Joint Mobilizations scapular Joint left scapula Direction depression and adduction Grade IV Body Position Sidelying Reps/Duration 12 each Comments monitored for pain left GH Direction ap, inf Grade III Body Position Supine Reps/Duration 10 Comments monitored for pain Taping kinesio taping Body Location left shoulder Treatment Focus for GH positioning/posture and to unload UT/levator scap Type of Tape kinesiotape Skin Inspection WNL Comments Patient ed to remove immediately if skin irritation , 3-5 days if no irritation occurs. ant GH to med border scap, UT and levator scap from insert to origin, single strips of tape for each no Y's Self-Care/Home Management Treatment Education Other Education Patient advised to avoid placing luggage in overhead bins on plane when traveling. Activities Self-Care/Home Management Activities HEP revised isometric reactives for IR and ER in place of IR and ER with band. PT-OP-T Assessment and Plan Start: 11/14/23 19:14 Freq: Status: Active Protocol: Document 01/02/24 08:05 AB (Rec: 01/02/24 10:09 AB [id number]) Physical Therapy Assessment Goals Three Impairment Poor posturing of L shoulder ( foward rounded and elevated) Impairment UE Quickdash score 9.09 (1-19% impaired, score 1-19). Reaching behind neck: L T3, R T4 Reaching behind back: L L2, R T8 Senior Living Goal (LTG) Improve posturing of the L shoulder with improved functional L shoulder AROM. 12/30/23: Reaching behind neck: L T3, R T3 Reaching behind back: L L1, R T11 LTG Duration 10 wks-01/30/24 Two Impairment Decreased L shoulder strength Impairment L shoulder strength: Flex, ER , horiz AD is 3+/5, otherwise is 5/5. Short Term Goal (STG) Improve L shoulder strength to relieve soreness with reaching overhead. 12/30/23: Reaching hands overhead without soreness. STG Duration 4 wks-12/19/23 (12/30/23: MET GOAL) Senior Living Goal (LTG) Improve L shoulder strength to relieve soreness with holding a weight over head 5-10#. 12/30/23: ABle to lift overhead 5# or less without soreness, a little discomfort with 5# lift. LTG Duration 10 wks-01/30/24 progressed 12/30/23 One Impairment Pt lacks appropriate self care HEP. Short Term Goal (STG) Pt will be educated in self care pain management and best positioning for nighttime sleep to minimize pain. STG Duration 2 wks-12/05/23 (11/25/23: MET GOAL) Weight Loss Physician Goal (LTG) Pt will be independent in an effective self care HEP of ROM & strengthening ex's of the L shoulder muscles and scapular stabilizers, to improve but not make sore his L lateral shoulder. 11/25/23: HEP: L UT stretch, scap retract/depression, neck elongation in proper sit posture, sup and sidelie L shdr ER/IR. LTG Duration 10 wks-01/30/24 progressed 11/25/23 Assessment Summary Assessment Reports of increased popping with shoulder IR and ER AROM with band, also during push up plus exercise this session. Jorge was able to perform Isometric reactives for shoulder ER and IR with reports of no popping sensation. HEP revised, patient ed to avoid movements that cause a repeated popping sensation in the shoulder. ( Jorge reports the popping is not painful.) Physical Therapy Plan Frequency and Duration Frequency of Treatment 2x/Week Duration of treatment (weeks) 10 Plan of Care Start Date 11/21/23 Plan of Care End Date 01/30/24 Next Visit Focus/Plan Next Note Type Treatment Note Next Visit Plan prone T to HEP, Reassess shoulder ER and IR with band and push up plus for popping sensation, K-tape as requested , possibly advise into session for tape training, Focus on L scap stab/ wall push up plus on ball in clinic . 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
--- NOTE | 2024-01-05 13:30 | PT-OP ANOTE ---
Phoned , Domingo Baptiste, and left message with staff regarding the request for imaging left shoulder in assessment of Physical therapy note sent to MD to make MD aware of this request.
--- NOTE | 2024-01-06 16:33 | PT.OTN ---
Current Diagnoses Other shoulder lesions, left shoulder (01/06/24) Physical Therapy Treatment Note PT-OP-A Visit Information Start: 11/14/23 19:14 Freq: Status: Active Protocol: Document 01/06/24 11:20 AB (Rec: 01/06/24 16:33 AB [id number]) Out-Patient Physical Therapy Visit Information Visit Information Visit Type Treatment Note Visit Note Access Code [email or web address] 12/13 for PN Visit Start Time 11:20 Visit Stop Time 12:04 Visit Number 12 Number of SUPERVISOR RECEIVING AND PROCESSING Visits 2 Evaluation Information Evaluation Date 11/21/23 Precautions Precautions arthritis, thyroid disorder PT-OP-B Current Condition Start: 11/14/23 19:14 Freq: Status: Active Protocol: Document 11/21/23 10:32 LRN (Rec: 11/21/23 11:17 LRN [id number]) Current Condition History of Current Condition Onset Date 4-6 months ago Current Complaints L shoulder constant pain History of Current Condition L shoulder had been stiffer than right, then 2 months ago (in Sep), slipped on icy steps and landed on a step onto his L shoulder. He noticed with lifting his L arm (thumb pointing down), he was not able to lower his arm without it dropping. He is now able to perform the movement. States the muscle on the top of his shoulder (pointing to Supraspinatus) is the muscle affected. He had been trying to put up sheet rock and found it really hurt his L shoulder . He has constant soreness and if sleeps on L side, is bothered by pain. Pt is normally a L side sleeper. States he is improving and the shoulder is still sore. Pt is R handed. Prior Treatments and Tests X-ray (10/27/23): No fractures or dislocations. Report states: High-riding humeral head can be seen with rotator cuff injury. Treatment Goals Patient/Caregiver Goals Pt goal: Improve L shoulder strength to relieve soreness. Learn ex's to improve but not make sore. Personal Factors Other Personal Factors That May Effect Arthrits. Therapy/Recovery PT-OP-C Subjective Start: 11/14/23 19:14 Freq: Status: Active Protocol: Document 01/06/24 11:20 AB (Rec: 01/06/24 16:33 AB [id number]) OP-PT Subjective Patient Comments Patient Comments Patient reports he is the same , reports he is going to golf tomorrow, and had no pain when golfing 2 weeks, is still unable to carry bag on left shoulder. 156 deg AROM left shoulder flexion start of session. PT-OP-E Functional Tests Start: 11/14/23 19:14 Freq: Status: Active Protocol: Document 11/21/23 10:32 LRN (Rec: 11/21/23 11:17 LRN [id number]) Functional Tests Apley's Scratch Test Action 1- Left Crest of spine Action 1- Right Crest of spine Action 2- Left T3 Action 2- Right T4 Action 3- Left L2 Action 3- Right T8 PT-OP-H Neuro Start: 11/14/23 19:14 Freq: Status: Active Protocol: Document 11/21/23 10:32 LRN (Rec: 11/21/23 11:17 LRN [id number]) Sensation Evaluation Gross Sensation Gross Sensation WNL PT-OP-J Posture/Palpation/Skin Start: 11/14/23 19:14 Freq: Status: Active Protocol: Document 11/21/23 10:32 LRN (Rec: 11/21/23 11:17 LRN [id number]) Posture Evaluation Position Standing Head/C-Spine Posture Forward Head Shoulder Posture (L) Rounded,(L) Forward,(L) Elevated Arm Posture (L) Internally Rotated,(R) Internally Rotated Comments Posture Comments Dowagers hump, straightened upper T/S curvature. Palpation Assessment Location L shoulder Palpation Location Between middle and posterior deltoid muscle. Palpation Findings Tenderness PT-OP-K Range of Motion Start: 11/14/23 19:14 Freq: Status: Active Protocol: Document 12/30/23 11:22 LRN (Rec: 12/30/23 12:12 LRN [id number]) Shoulder Goniometric Range of Motion Shoulder Right Active Testing Position Sitting Flexion 180 Extension 42 Abduction 180 Left Active Testing Position Sitting Flexion 180 Extension 42 Abduction 180 PT-OP-L Special Tests Start: 11/14/23 19:14 Freq: Status: Active Protocol: Document 11/21/23 10:32 LRN (Rec: 11/21/23 11:17 LRN [id number]) Special Tests Shoulder Special Tests Passive ER Rotator Cuff Test Results + Comments ROM in neutral before pain increase. IR/Horizontal ADD Impingement Test Results + Elevation Impingement Test Results + Comments Pain only at end-range. PT-OP-M Strength Start: 11/14/23 19:14 Freq: Status: Active Protocol: Document 12/30/23 11:22 LRN (Rec: 12/30/23 12:12 LRN [id number]) Shoulder Strength Shoulder Manual Muscle Testing Right Comments Strength is 5/5. Left External Rotation 3 Fair Comments Strength is 5/5 except as indicated above. PT-OP-Q Treatments Start: 11/14/23 19:14 Freq: Status: Active Protocol: Document 01/06/24 11:20 AB (Rec: 01/06/24 16:33 AB [id number]) Therapeutic Exercises Standing Exercises statue of liberty Side left Resistance yellow therabar Reps/Minutes 60 sec wall push up plus Standing Exercise Name wall push up plus on ball Side bilateral Reps/Minutes X10 Comments reports no sensaton of popping mini band Standing Exercise Name shoulder ER with band with flexion Side bilateral Resistance single thickness level one band Reps/Minutes X10 Comments monitored for pain Shoulder IR Standing Exercise Name Isometric reactive this session Side left Equipment Used L4 band Reps/Minutes X10 at neutral, X 10 30 deg ER and abd, X 3 with hand near abdominal area Comments reports no popping Shoulder ER Side left Equipment Used level 2 band Reps/Minutes X10 at neutral, X 10 30 deg ER and abd, X 3 with hand near abdominal area Comments initiated with level 4, but reported pain Manual Therapy Treatment Soft Tissue Mobilization pec, post cuff, periscapular, infra and supra spinatus Body Location left shoulder also sustained pressure to UT Mobilization Type Cross-Friction,Rolling,Other Intensity/Depth Moderate Body Position Hooklying Joint Mobilizations scapular Joint left scapula Direction depression and adduction Grade IV Body Position Sidelying Reps/Duration 12 each Comments monitored for pain left GH Direction ap, inf Grade III Body Position Supine Reps/Duration 10 Comments monitored for pain Taping kinesio taping Body Location left shoulder Treatment Focus for GH positioning/posture and to unload UT/levator scap Type of Tape kinesiotape Skin Inspection WNL Comments Patient ed to remove immediately if skin irritation , 3-5 days if no irritation occurs. ant GH to med border scap, UT and levator scap from insert to origin, single strips of tape for each no Y's Self-Care/Home Management Treatment Activities Self-Care/Home Management Activities isometric reactive to multiple angles on HEP PT-OP-T Assessment and Plan Start: 11/14/23 19:14 Freq: Status: Active Protocol: Document 01/06/24 11:20 AB (Rec: 01/06/24 16:33 AB [id number]) Physical Therapy Assessment Goals Three Impairment Poor posturing of L shoulder ( foward rounded and elevated) Impairment UE Quickdash score 9.09 (1-19% impaired, score 1-19). Reaching behind neck: L T3, R T4 Reaching behind back: L L2, R T8 Link Knitting Machine Operator Goal (LTG) Improve posturing of the L shoulder with improved functional L shoulder AROM. 12/30/23: Reaching behind neck: L T3, R T3 Reaching behind back: L L1, R T11 LTG Duration 10 wks-01/30/24 Two Impairment Decreased L shoulder strength Impairment L shoulder strength: Flex, ER , horiz AD is 3+/5, otherwise is 5/5. Short Term Goal (STG) Improve L shoulder strength to relieve soreness with reaching overhead. 12/30/23: Reaching hands overhead without soreness. STG Duration 4 wks-12/19/23 (12/30/23: MET GOAL) Group Home Goal (LTG) Improve L shoulder strength to relieve soreness with holding a weight over head 5-10#. 12/30/23: ABle to lift overhead 5# or less without soreness, a little discomfort with 5# lift. LTG Duration 10 wks-01/30/24 progressed 12/30/23 One Impairment Pt lacks appropriate self care HEP. Short Term Goal (STG) Pt will be educated in self care pain management and best positioning for nighttime sleep to minimize pain. STG Duration 2 wks-12/05/23 (11/25/23: MET GOAL) Link Knitting Machine Operator Goal (LTG) Pt will be independent in an effective self care HEP of ROM & strengthening ex's of the L shoulder muscles and scapular stabilizers, to improve but not make sore his L lateral shoulder. 11/25/23: HEP: L UT stretch, scap retract/depression, neck elongation in proper sit posture, sup and sidelie L shdr ER/IR. LTG Duration 10 wks-01/30/24 progressed 11/25/23 Assessment Summary Assessment Jorge was able to perform push up plus with reports of no popping sensation this session , shoulder ER with band AROM continues to report popping sensation, but good [place] to isometric reactive at varying positions of ER and IR. Physical Therapy Plan Frequency and Duration Frequency of Treatment 2x/Week Duration of treatment (weeks) 10 Plan of Care Start Date 11/21/23 Plan of Care End Date 01/30/24 Next Visit Focus/Plan Next Note Type Treatment Note Next Visit Plan prone T to HEP, Reassess shoulder ER and IR with band for popping sensation, K-tape as requested, possibly advise into session for tape training, Focus on L scap stab / wall push up plus on ball in clinic. 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
--- NOTE | 2024-01-08 16:28 | PT.OTN ---
Current Diagnoses Other shoulder lesions, left shoulder (01/08/24) Physical Therapy Treatment Note PT-OP-A Visit Information Start: 11/14/23 19:14 Freq: Status: Active Protocol: Document 01/08/24 08:19 LRN (Rec: 01/08/24 09:06 LRN [id number]) Out-Patient Physical Therapy Visit Information Visit Information Visit Type Treatment Note Visit Note 01/13 for PN Visit Start Time 08:19 Visit Stop Time 09:04 Visit Number 13 Evaluation Information Evaluation Date 11/21/23 Precautions Precautions arthritis, thyroid disorder PT-OP-B Current Condition Start: 11/14/23 19:14 Freq: Status: Active Protocol: Document 11/21/23 10:32 LRN (Rec: 11/21/23 11:17 LRN [id number]) Current Condition History of Current Condition Onset Date 4-6 months ago Current Complaints L shoulder constant pain History of Current Condition L shoulder had been stiffer than right, then 2 months ago (in Sep), slipped on icy steps and landed on a step onto his L shoulder. He noticed with lifting his L arm (thumb pointing down), he was not able to lower his arm without it dropping. He is now able to perform the movement. States the muscle on the top of his shoulder (pointing to Supraspinatus) is the muscle affected. He had been trying to put up sheet rock and found it really hurt his L shoulder . He has constant soreness and if sleeps on L side, is bothered by pain. Pt is normally a L side sleeper. States he is improving and the shoulder is still sore. Pt is R handed. Prior Treatments and Tests X-ray (10/27/23): No fractures or dislocations. Report states: High-riding humeral head can be seen with rotator cuff injury. Treatment Goals Patient/Caregiver Goals Pt goal: Improve L shoulder strength to relieve soreness. Learn ex's to improve but not make sore. Personal Factors Other Personal Factors That May Effect Arthrits. Therapy/Recovery PT-OP-C Subjective Start: 11/14/23 19:14 Freq: Status: Active Protocol: Document 01/08/24 08:19 LRN (Rec: 01/08/24 09:06 LRN [id number]) OP-PT Subjective Patient Comments Patient Comments States he is to schedule an MRI, expecting it in 5-7 days. Went golfing and has soreness. PT-OP-E Functional Tests Start: 11/14/23 19:14 Freq: Status: Active Protocol: Document 01/08/24 08:19 LRN (Rec: 01/08/24 09:06 LRN [id number]) Functional Tests Apley's Scratch Test Action 1- Left superomedial angle of scapula Action 1- Right 1 below superomedial angle of scapula Action 2- Left T3 Action 2- Right T3 Action 3- Left T8 Action 3- Right T9 PT-OP-H Neuro Start: 11/14/23 19:14 Freq: Status: Active Protocol: Document 11/21/23 10:32 LRN (Rec: 11/21/23 11:17 LRN [id number]) Sensation Evaluation Gross Sensation Gross Sensation WNL PT-OP-J Posture/Palpation/Skin Start: 11/14/23 19:14 Freq: Status: Active Protocol: Document 11/21/23 10:32 LRN (Rec: 11/21/23 11:17 LRN [id number]) Posture Evaluation Position Standing Head/C-Spine Posture Forward Head Shoulder Posture (L) Rounded,(L) Forward,(L) Elevated Arm Posture (L) Internally Rotated,(R) Internally Rotated Comments Posture Comments Dowagers hump, straightened upper T/S curvature. Palpation Assessment Location L shoulder Palpation Location Between middle and posterior deltoid muscle. Palpation Findings Tenderness PT-OP-K Range of Motion Start: 11/14/23 19:14 Freq: Status: Active Protocol: Document 12/30/23 11:22 LRN (Rec: 12/30/23 12:12 LRN [id number]) Shoulder Goniometric Range of Motion Shoulder Right Active Testing Position Sitting Flexion 180 Extension 42 Abduction 180 Left Active Testing Position Sitting Flexion 180 Extension 42 Abduction 180 PT-OP-L Special Tests Start: 11/14/23 19:14 Freq: Status: Active Protocol: Document 11/21/23 10:32 LRN (Rec: 11/21/23 11:17 LRN [id number]) Special Tests Shoulder Special Tests Passive ER Rotator Cuff Test Results + Comments ROM in neutral before pain increase. IR/Horizontal ADD Impingement Test Results + Elevation Impingement Test Results + Comments Pain only at end-range. PT-OP-M Strength Start: 11/14/23 19:14 Freq: Status: Active Protocol: Document 12/30/23 11:22 LRN (Rec: 12/30/23 12:12 LRN [id number]) Shoulder Strength Shoulder Manual Muscle Testing Right Comments Strength is 5/5. Left External Rotation 3 Fair Comments Strength is 5/5 except as indicated above. PT-OP-Q Treatments Start: 11/14/23 19:14 Freq: Status: Active Protocol: Document 01/08/24 08:19 LRN (Rec: 01/08/24 09:06 LRN [id number]) Gym Equipment Cable Column (Body Solid) Lat Pull Down Details Cuing to move scap retract/ depression. Resistance 30# Reps/Time 15x Therapeutic Exercises Supine Exercises Lat Pull down Supine Exercise Name Lat Pull Down w/extra shove into scap retract/depression Side bilateral Equipment Used L3 & L5 TB Reps/Minutes 10x Standing Exercises statue of liberty Standing Exercise Name Arm 90 deg's AB and 45 deg's ER. Resistance yellow therabar Reps/Minutes 60 sec wall push up plus Standing Exercise Name wall push up plus on ball and with extra shove. Side bilateral Reps/Minutes 15x 2, extra shove x 10 reps Comments no popping L shldr. Pt notes creaking, but not noted w/palp mini band Standing Exercise Name shoulder ER Side bilateral Resistance single thickness level one band Reps/Minutes 15x 2 Comments Pt notes creaking, but not noted w/palp Shoulder IR Standing Exercise Name Isometric reactive this session Side left Equipment Used L4 band Reps/Minutes X10 at neutral, X 10 30 deg ER and abd, X 3 with hand near abdominal area Comments No popping, creaking w/o pain. Shoulder ER Side left Equipment Used level 2 band Reps/Minutes X10 at neutral, X 10 30 deg ER and abd, X 3 with hand near abdominal area Comments initiated with level 4, but reported pain high row Standing Exercise Name high row-much cuing needed to get scap to move infer/AD Side bilateral Equipment Used Lev 3 Reps/Minutes 10' Comments VC to move scap inferior/add Self-Care/Home Management Treatment Education Other Education Discussed pt's POC and goals. Changed appt schedule to 1x/ wk with hold for 1 wk per pt request. Activities Self-Care/Home Management Activities I/S pt to remove K-tape with 5 days of iniital application. PT-OP-T Assessment and Plan Start: 11/14/23 19:14 Freq: Status: Active Protocol: Document 01/08/24 08:19 LRN (Rec: 01/08/24 09:06 LRN [id number]) Physical Therapy Assessment Goals Three Impairment Poor posturing of L shoulder ( foward rounded and elevated) Impairment UE Quickdash score 9.09 (1-19% impaired, score 1-19). Reaching behind neck: L T3, R T4 Reaching behind back: L L2, R T8 Retirement Goal (LTG) Improve posturing of the L shoulder with improved functional L shoulder AROM. 12/30/23: Reaching behind neck: L T3, R T3 Reaching behind back: L L1, R T11 LTG Duration 10 wks-01/30/24 Two Impairment Decreased L shoulder strength Impairment L shoulder strength: Flex, ER , horiz AD is 3+/5, otherwise is 5/5. Short Term Goal (STG) Improve L shoulder strength to relieve soreness with reaching overhead. 12/30/23: Reaching hands overhead without soreness. STG Duration 4 wks-12/19/23 (12/30/23: MET GOAL) Retirement Goal (LTG) Improve L shoulder strength to relieve soreness with holding a weight over head 5-10#. 12/30/23: ABle to lift overhead 5# or less without soreness, a little discomfort with 5# lift. LTG Duration 10 wks-01/30/24 progressed 12/30/23 One Impairment Pt lacks appropriate self care HEP. Short Term Goal (STG) Pt will be educated in self care pain management and best positioning for nighttime sleep to minimize pain. STG Duration 2 wks-12/05/23 (11/25/23: MET GOAL) Checker In Goal (LTG) Pt will be independent in an effective self care HEP of ROM & strengthening ex's of the L shoulder muscles and scapular stabilizers, to improve but not make sore his L lateral shoulder. 11/25/23: HEP: L UT stretch, scap retract/depression, neck elongation in proper sit posture, sup and sidelie L shdr ER/IR. LTG Duration 10 wks-01/30/24 progressed 11/25/23 Assessment Summary Assessment 68 yo male with initial signs of L shoulder impingement, poor L scapulohumeral rhythm, possibly due soft tissue dysfunction (capsular or rotator cuff in nature). Today he demonstrates good functional L shoulder mobility and strength (no palpable poping at L shoulder with ER/ IR strengthening) except with shoulder flexion he notes pain in the area of the supraspinatus attachement at the humeral head. Tightness is present in the L supraspinatus muscle. Pt needing DTM/relaxation and US to Supraspinatus attachment at humeral head. Physical Therapy Plan Frequency and Duration Frequency of Treatment 2x/Week Duration of treatment (weeks) 10 Plan of Care Start Date 11/21/23 Plan of Care End Date 01/30/24 Next Visit Focus/Plan Next Note Type Discharge Summary Next Visit Plan New POC needed next visit unless DC'd next visit. Pt away 1 wk, then 1x/wk with new POC/goals after results of MRI known. Pt to hopefully have MRI before next visit. Next: Focus on reducing inflammation of Supraspinatus inflammation at attachement on humeral head, and decreasing ms tone (DTM. possibly even EStim). K-tape as requested. Ther EX: cont L scap stab/ wall push up plus on ball in clinic, Ecc strengthening and ex for golfing/statue of liberty with yellow therabar vs body blade with UE at side.
--- NOTE | 2024-04-23 16:42 | PT.OPDS ---
Current Diagnoses Other shoulder lesions, left shoulder (01/08/24) Visit Care Team Role Provider Type Domingo Baptiste MD Attending Provider Physician Family Provider Primary Care Provider Referring Provider Specialty: Internal Medicine Address: [address] [place] [address], [facility] Email: [email or web address] Visit Number Visit Number 13 Discharge Summary PT-OP-B Current Condition Start: 11/14/23 19:14 Freq: Status: Active Protocol: Document 11/21/23 10:32 LRN (Rec: 11/21/23 11:17 LRN [id number]) Current Condition History of Current Condition Onset Date 4-6 months ago Current Complaints L shoulder constant pain History of Current Condition L shoulder had been stiffer than right, then 2 months ago (in Sep), slipped on icy steps and landed on a step onto his L shoulder. He noticed with lifting his L arm (thumb pointing down), he was not able to lower his arm without it dropping. He is now able to perform the movement. States the muscle on the top of his shoulder (pointing to Supraspinatus) is the muscle affected. He had been trying to put up sheet rock and found it really hurt his L shoulder . He has constant soreness and if sleeps on L side, is bothered by pain. Pt is normally a L side sleeper. States he is improving and the shoulder is still sore. Pt is R handed. Prior Treatments and Tests X-ray (10/27/23): No fractures or dislocations. Report states: High-riding humeral head can be seen with rotator cuff injury. Treatment Goals Patient/Caregiver Goals Pt goal: Improve L shoulder strength to relieve soreness. Learn ex's to improve but not make sore. Personal Factors Other Personal Factors That May Effect Arthrits. Therapy/Recovery PT-OP-C Subjective Start: 11/14/23 19:14 Freq: Status: Active Protocol: Document 01/08/24 08:19 LRN (Rec: 01/08/24 09:06 LRN [id number]) OP-PT Subjective Patient Comments Patient Comments States he is to schedule an MRI, expecting it in 5-7 days. Went golfing and has soreness. PT-OP-E Functional Tests Start: 11/14/23 19:14 Freq: Status: Active Protocol: Document 01/08/24 08:19 LRN (Rec: 01/08/24 09:06 LRN [id number]) Functional Tests Apley's Scratch Test Action 1- Left superomedial angle of scapula Action 1- Right 1 below superomedial angle of scapula Action 2- Left T3 Action 2- Right T3 Action 3- Left T8 Action 3- Right T9 PT-OP-H Neuro Start: 11/14/23 19:14 Freq: Status: Active Protocol: Document 11/21/23 10:32 LRN (Rec: 11/21/23 11:17 LRN [id number]) Sensation Evaluation Gross Sensation Gross Sensation WNL PT-OP-J Posture/Palpation/Skin Start: 11/14/23 19:14 Freq: Status: Active Protocol: Document 11/21/23 10:32 LRN (Rec: 11/21/23 11:17 LRN [id number]) Posture Evaluation Position Standing Head/C-Spine Posture Forward Head Shoulder Posture (L) Rounded,(L) Forward,(L) Elevated Arm Posture (L) Internally Rotated,(R) Internally Rotated Comments Posture Comments Dowagers hump, straightened upper T/S curvature. Palpation Assessment Location L shoulder Palpation Location Between middle and posterior deltoid muscle. Palpation Findings Tenderness PT-OP-K Range of Motion Start: 11/14/23 19:14 Freq: Status: Active Protocol: Document 12/30/23 11:22 LRN (Rec: 12/30/23 12:12 LRN [id number]) Shoulder Goniometric Range of Motion Shoulder Right Active Testing Position Sitting Flexion 180 Extension 42 Abduction 180 Left Active Testing Position Sitting Flexion 180 Extension 42 Abduction 180 PT-OP-L Special Tests Start: 11/14/23 19:14 Freq: Status: Active Protocol: Document 11/21/23 10:32 LRN (Rec: 11/21/23 11:17 LRN [id number]) Special Tests Shoulder Special Tests Passive ER Rotator Cuff Test Results + Comments ROM in neutral before pain increase. IR/Horizontal ADD Impingement Test Results + Elevation Impingement Test Results + Comments Pain only at end-range. PT-OP-M Strength Start: 11/14/23 19:14 Freq: Status: Active Protocol: Document 12/30/23 11:22 LRN (Rec: 12/30/23 12:12 LRN [id number]) Shoulder Strength Shoulder Manual Muscle Testing Right Comments Strength is 5/5. Left External Rotation 3 Fair Comments Strength is 5/5 except as indicated above. PT-OP-T Assessment and Plan Start: 11/14/23 19:14 Freq: Status: Active Protocol: Document 04/23/24 16:37 LRN (Rec: 04/23/24 16:42 LRN [id number]) Physical Therapy Assessment Goals Three Impairment Poor posturing of L shoulder ( foward rounded and elevated) Impairment UE Quickdash score 9.09 (1-19% impaired, score 1-19). Reaching behind neck: L T3, R T4 Reaching behind back: L L2, R T8 Penitentiary Goal (LTG) Improve posturing of the L shoulder with improved functional L shoulder AROM. 12/30/23: Reaching behind neck: L T3, R T3 Reaching behind back: L L1, R T11 LTG Duration 10 wks-01/30/24 (04/23/24: NOT MET GOAL) Two Impairment Decreased L shoulder strength Impairment L shoulder strength: Flex, ER , horiz AD is 3+/5, otherwise is 5/5. Short Term Goal (STG) Improve L shoulder strength to relieve soreness with reaching overhead. 12/30/23: Reaching hands overhead without soreness. STG Duration 4 wks-12/19/23 (12/30/23: MET GOAL) Penitentiary Goal (LTG) Improve L shoulder strength to relieve soreness with holding a weight over head 5-10#. 12/30/23: ABle to lift overhead 5# or less without soreness, a little discomfort with 5# lift. LTG Duration 10 wks-01/30/24 (04/23/24: NOT MET GOAL) One Impairment Pt lacks appropriate self care HEP. Short Term Goal (STG) Pt will be educated in self care pain management and best positioning for nighttime sleep to minimize pain. STG Duration 2 wks-12/05/23 (11/25/23: MET GOAL) Penitentiary Goal (LTG) Pt will be independent in an effective self care HEP of ROM & strengthening ex's of the L shoulder muscles and scapular stabilizers, to improve but not make sore his L lateral shoulder. 11/25/23: HEP: L UT stretch, scap retract/depression, neck elongation in proper sit posture, sup and sidelie L shdr ER/IR. LTG Duration 10 wks-01/30/24 (04/23/24: MET GOAL for his status as last appt). Assessment Summary Assessment 68 yo male with initial signs of L shoulder impingement, poor L scapulohumeral rhythm and diagnosed with L shoulder lesions. The pt was last seen 01/08/24 and message was received 01/19/24 by pt requesting discharge as he was told to stop by referring provider due to MRI showing tear. Pt is discharged from physical therapy. Physical Therapy Plan Discharge Physical Therapy Discharge Comments Thank you for your referral.
== END 2024-05-14 09:28 ==
LOC: PHYS 08:15
PROVIDERS: Family Provider Internal Medicine; PCP Internal Medicine; Referring Provider Internal Medicine; Visit Provider Internal Medicine
DX: M75.82 Other shoulder lesions, left shoulder (principal)
CPT/HCPCS: 97110; 97140; 97162; 97535

== ENCOUNTER → 2024-01-10 10:21 | Outpatient (CLI) | payer MEDICARE, OTHER, SELFPAY ==
--- NOTE | 2024-01-10 10:22 | DI.MRI.S_ITS ---
PROCEDURE: MR SHOULDER LT WO CON INDICATIONS: left rotator cuff tendonitis TECHNIQUE: Noncontrast oblique coronal T2 fast spin echo with fat saturation, oblique sagittal T1 spin echo and T2 fast spin echo with fat saturation, axial T1 spin echo and T2 fast spin echo with fat saturation through the shoulder. COMPARISON: [facility], CR, XR SHOULDER LT MIN 2V, 10/27/2023, 9:02. FINDINGS: Image quality: Excellent. Rotator cuff: High-grade partial bursal sided tearing of the supraspinatus tendon at the distal insertion. There is attenuation at the posterior supraspinatus/anterior infraspinatus crossover region that is suspicious for a focal full-thickness component. Findings are superimposed on chronic tendinosis. Teres minor tendon is intact. Moderate subscapularis tendinosis with superimposed low-grade partial intrasubstance tearing. Rotator cuff musculature is normal in bulk. Bones and bursae: No acute trabecular bone injury or fracture. Small chronic cystic changes at the posterosuperior humeral head. Mild partial thickness irregularity of the glenohumeral articular cartilage with small marginal osteophytes. Moderate degenerative changes at the acromioclavicular joint with subchondral cystic changes, subchondral edema, and marginal osteophyte formation. A moderate amount of fluid is seen in the subacromial/subdeltoid bursa. There is a physiologic amount of glenohumeral joint fluid. Capsule and soft tissues: There is chronic nondisplaced tearing of the superior to posterior superior labrum. Moderate to severe tendinosis and suspected partial tearing of the proximal biceps long head tendon. There is partial effacement of the fat in the rotator interval. Glenohumeral ligaments appear to be intact. IMPRESSION: 1. Large high-grade partial bursal sided tear at the distal supraspinatus insertion with suspected small full-thickness component at the posterior supraspinatus/anterior infraspinatus crossover region. 2. Moderate subscapularis tendinosis and low-grade partial intrasubstance tearing at the superior insertion. 3. Moderate to severe tendinosis and suspected partial tearing of the proximal biceps long head tendon. 4. Mild glenohumeral osteoarthrosis. Chronic nondisplaced tearing of the superior to posterior superior labrum. 5. Moderate acromioclavicular joint osteoarthrosis. 6. Moderate subacromial/subdeltoid effusion that likely communicates with the glenohumeral joint space. Approved by: Diomedes Trent M.D. on 01/12/2024 at 11:01
== END ==
PROVIDERS: Family Provider Internal Medicine; PCP Internal Medicine; Referring Provider Internal Medicine; Visit Provider Internal Medicine
DX: M75.112 Incomplete rotator cuff tear or rupture of left shoulder, not specified as traumatic (principal); M75.82 Other shoulder lesions, left shoulder; M19.012 Primary osteoarthritis, left shoulder; M25.412 Effusion, left shoulder
CPT/HCPCS: 73221

== ENCOUNTER → 2025-01-18 16:32 | Outpatient (CLI) | payer MEDICARE, OTHER, SELFPAY ==
[2025-01-18 17:37] LABS: Aspartate Aminotransferase 38 IU/L (17-59); BUN Creatinine Ratio 17.5 (6-22); Blood Urea Nitrogen 20 mg/dL (9-20); Calcium 9.5 mg/dL (8.4-10.2); Carbon Dioxide 25 mmol/L (22-32); Chloride 105 mmol/L (98-107); Cholesterol 153 mg/dL (140-199); Estimated Glomerular Filt Rate > 60 mL/min (>60); Glucose 122 mg/dL (80-110); HDL Cholesterol 56 mg/dL (40-60); HEMOLYSIS < 15 (0-50); LDL Cholesterol Calculated 52 mg/dL (<100); Potassium 3.8 mmol/L (3.4-5.1); Sodium 139 mmol/L (137-145); Triglycerides 226 mg/dL (35-150)
[2025-01-18 18:12] LABS: Prostate Specific Antigen < 0.064 ng/mL (0.10-4.00)
== END ==
PROVIDERS: Family Provider Internal Medicine; PCP Internal Medicine; Referring Provider Internal Medicine; Visit Provider Internal Medicine
DX: E03.9 Hypothyroidism, unspecified (principal); Z85.46 Personal history of malignant neoplasm of prostate; E78.2 Mixed hyperlipidemia
CPT/HCPCS: 36415; 80048; 80061; 84153; 84443; 84450

== ENCOUNTER → 2025-05-09 09:12 | Outpatient (CLI) | payer OTHER, SELFPAY ==
--- NOTE | 2025-05-09 09:15 | DI.RAD.S_ITS ---
PROCEDURE: XR ANKLE LT 2V INDICATIONS: L ANKLE FRACTURE TECHNIQUE: 2 views of the ankle were acquired. COMPARISON: None. FINDINGS: Bones: No fractures or dislocations. Calcific density inferiorly adjacent to the medial malleolus may represent sequelae of remote trauma. Ankle mortise is normally aligned. No suspicious bony lesions. Posterior talocalcaneal osteophytosis. Plantar and retrocalcaneal enthesopathy. Soft tissues: No tibiotalar joint effusion. Achilles tendon appears normal. IMPRESSION: No acute bony abnormality or significant effusion. Probable sequelae of remote trauma adjacent to the medial malleolus. Dictated by: Alan Mahan M.D. on 05/10/2025 at 17:04 Approved by: Alan Mahan M.D. on 05/10/2025 at 17:29
== END ==
LOC: RAD 09:14
PROVIDERS: Family Provider Internal Medicine; PCP Internal Medicine; Referring Provider Chiropractor; Visit Provider Chiropractor
DX: S92.102A Unspecified fracture of left talus, initial encounter for closed fracture (principal)
CPT/HCPCS: 73600

== ENCOUNTER 2025-06-23 11:51 | Day surgery (SDC) | payer MEDICARE, OTHER, SELFPAY ==
[2025-06-23 12:16] VITALS: BP 165/79; PULSE 57; RESP 15; TEMP 36.3; O2SAT 97
--- NOTE | 2025-06-23 12:31 | PM.HP.IH.1 ---
History of Present Illness History of Present Illness Date Patient Seen: 06/23/25 Time Patient Seen: 12:31 Chief complaint: Screening Colonoscopy Narrative: Jorge is a 69-year-old man here for a colonoscopy. His last colonoscopy was about 10 years ago and was normal. He thinks he may have had a small polyp removed on his first colonoscopy. No family history of colon cancer. [facility] Medical History (Updated 01/12/24 @ 13:36 by Domingo Baptiste MD) Tear of left supraspinatus tendon Overweight History of colonic polyps Erectile dysfunction History of prostate cancer Allergic rhinitis Acquired hypothyroidism Mixed hyperlipidemia Rosacea (~2009) Fractures (~1988) Ankle pain (~1988) Rubella (~1963) Mumps (~1963) Chicken pox (~1963) Hematuria (~2009) Arthritis Heart murmur HLD (hyperlipidemia) Localized swelling, mass and lump, neck Surgical History Anesthesia Lipoma (~2021) Hx of colonoscopy (2014) History of ankle surgery (1998) History of hernia surgery (2019) Hx of prostatectomy (2014) Hx of tonsillectomy (1961) Family History Mother Heart disease (organic) Hypertension Sister Diabetes mellitus History of heart disease Hyperlipidemia Hypertension Father Stroke Dementia Sister Cancer Grandfather Stroke Grandmother Cancer Grandfather No problems noted. Grandmother Breast cancer Social History marital status: household members: spouse occupational status: previously employed alcohol intake: current Meds Home Medications and Allergies Home Medications ?Medication ?Instructions ?Recorded ?Confirmed ?Type levothyroxine 88 mcg tablet 88 mcg PO DAILY #90 tabs 01/18/25 06/23/25 Rx rosuvastatin 10 mg tablet 10 mg PO DAILY #90 tabs 01/18/25 06/23/25 Rx sildenafil 50 mg tablet 50 mg PO DAILY PRN sexual activity 01/18/25 06/23/25 Rx #30 tabs Allergies Allergy/AdvReac Type Severity Reaction Status Date / Time No Known Drug Allergies Allergy Verified 06/23/25 12:15 Exam Const General: healthy appearing Assessment & Plan Assessment and plan (1) History of colonic polyps: Status: Acute Assessment & Plan narrative: Colonoscopy Time-Based Coding :: [TOTAL MINUTES] spent with patient and on the chart (including review of chart, obtaining history, exam, reviewing outside data, placing orders, documenting exam and treatment plan, and counseling patient) on [DATE]. PROFEE Death Surveys Coder Document charge(s): No
[2025-06-23] MEDS: LACTATED RINGERS 1,000 ML 42 ML IV (12:35)
[2025-06-23 12:58] VITALS: BP 105/55; PULSE 60; RESP 16; TEMP 36.2; O2SAT 95
--- NOTE | 2025-06-23 13:00 | PM.OP.COLON ---
Operative Date/Time/Diagnoses Date of procedure: 06/23/25 Time of procedure: 13:00 Pre-op diagnosis: Colon cancer screening Post-op diagnosis: same Procedure & Clinicians Study performed: Colonoscopy Same procedure(s) as scheduled: Yes Surgeon: Marino Sosa Anesthesia Type: MAC +/- Procedure Notes Procedure in detail: Surgeon: Marino Sosa MD Anesthesia: Jessica Sebastian CRNA Procedure: The patient was brought to the endoscopy suite, placed in left lateral decubitus position. The patient was connected to monitoring devices. A time-out was performed. Sedation was administered. Once the patient was adequately sedated, a digital rectal exam was performed and was normal. The scope was then inserted and advanced to the cecum where the appendiceal orifice was identified and photographed. The scope was then slowly withdrawn over greater than 6 minutes. The mucosa was thoroughly inspected. No polyps or other abnormalities were identified. The scope was retroflexed in the rectum. The scope was straightened and removed. The patient was awakened and brought to recovery. Scope withdrawal time: 6 minutes Sedation time: 10 minutes EBL: 0 Findings: Normal colon Post-procedure Recommendations: Colonoscopy in 10 years Disposition: PACU
[2025-06-23 13:03] VITALS: BP 95/54; PULSE 71; RESP 16; TEMP 36.2; O2SAT 99
[2025-06-23 13:08] VITALS: BP 102/53; PULSE 60; RESP 16; TEMP 36.2; O2SAT 98
== END 2025-06-23 13:33 | disposition home or self-care (01) ==
PROVIDERS: Family Provider Internal Medicine; PCP Internal Medicine; Referring Provider Surgery; Visit Provider Surgery
PROC: 0DJD8ZZ Inspection of Lower Intestinal Tract, Via Natural or Artificial Opening Endoscopic (ICD-10-PCS; CPT 45378; principal; 2025-06-23 13:00)
DX: Z12.11 Encounter for screening for malignant neoplasm of colon (principal)
CPT/HCPCS: G0121; J2704